=== PATIENT | male | born 1955 | race Caucasian/White ===

== ENCOUNTER 2020-09-26 15:05 | Outpatient (REF) | payer BC, SELFPAY | END 2020-09-26 15:06 | disposition home or self-care (01) | LOC: HO.LNP 15:05 | PROVIDERS: Visit Provider Internal Medicine | DX: Z20.828 Contact with and (suspected) exposure to other viral communicable diseases (principal) | CPT/HCPCS: U0003 ==

== ENCOUNTER 2021-01-09 11:06 | Outpatient (REF) | payer BC, SELFPAY ==
[2021-01-09 13:58] LABS: MANUAL DIFF FLAG NO
[2021-01-09 14:04] LABS: Basophils Absolute Auto 0.1 X10*3/uL (0.0-0.2); Basophils Percent Auto 1.4 % (0-2); Eosinophils Absolute Auto 0.2 X10*3/uL (0.0-0.4); Hematocrit 39.4 % (42-52); Hemoglobin 12.7 g/dl (14.0-18.0); Imm Gran Abs Auto 0.02 X10*3/uL (0.00-0.03); Imm Gran Pct Auto 0.3 % (0.0-0.4); Lymphocytes Absolute Auto 1.8 X10*3/uL (1.2-4.9); Lymphocytes Percent Auto 25.5 % (20-40); Mean Corpuscular HGB Conc 32.2 g/dl (31.0-36.0); Mean Platelet Volume 12.6 fL (9.4-12.4); Monocytes Absolute Auto 0.5 X10*3/uL (0.1-1.2); Neutrophils Absolute Auto 4.4 X10*3/uL (2.0-8.3); Neutrophils Percent Auto 62.8 % (45-73); Platelet Count 273 X10*3/uL (160-400); Red Blood Count 4.53 X10*6/uL (4.60-5.80); Red Cell Distribution Width 14.3 % (11.0-16.0)
[2021-01-09 14:31] LABS: Alanine Aminotransferase 25 U/L (0-40); Albumin Level 4.4 g/dL (3.5-5.0); Alkaline Phosphatase 73 U/L (39-117); Anion Gap 12 (12-20); Aspartate Amino Transferase 22 U/L (5-37); Bilirubin Total 1.3 mg/dL (0.0-1.0); Blood Urea Nitrogen 18 mg/dL (9-16); Calcium 9.4 mg/dL (8.4-10.2); Carbon Dioxide 30 mmol/L (22-29); Chloride 103 mmol/L (96-108); Estimated Glomerular Filt Rate > 60; Glucose Fasting 103 mg/dL (60-99); Potassium 3.7 mmol/L (3.3-5.1); Sodium 141 mmol/L (135-145); Total Protein 7.1 g/dL (6.5-8.0)
== END 2021-01-09 11:07 | disposition home or self-care (01) ==
LOC: HO.10HDL 11:06
PROVIDERS: Visit Provider Internal Medicine
DX: I48.91 Unspecified atrial fibrillation (principal); I10 Essential (primary) hypertension; Z95.2 Presence of prosthetic heart valve
CPT/HCPCS: 36415; 80053; 85025

== ENCOUNTER 2021-07-23 09:16 | Outpatient (REF) | payer BC, SELFPAY ==
[2021-07-23 09:50] LABS: MANUAL DIFF FLAG NO
[2021-07-23 09:54] LABS: Basophils Absolute Auto 0.1 X10*3/uL (0.0-0.2); Basophils Percent Auto 1.4 % (0-2); Eosinophils Absolute Auto 0.5 X10*3/uL (0.0-0.4); Eosinophils Percent Auto 6.9 % (0-4); Hematocrit 40.7 % (42-52); Hemoglobin 13.3 g/dl (14.0-18.0); Imm Gran Abs Auto 0.03 X10*3/uL (0.00-0.03); Imm Gran Pct Auto 0.5 % (0.0-0.4); Lymphocytes Absolute Auto 1.8 X10*3/uL (1.2-4.9); Lymphocytes Percent Auto 26.7 % (20-40); Mean Corpuscular HGB Conc 32.7 g/dl (31.0-36.0); Mean Corpuscular Hemoglobin 28.2 pg (27.0-33.0); Mean Corpuscular Volume 86.2 fL (80-98); Mean Platelet Volume 12.4 fL (9.4-12.4); Monocytes Absolute Auto 0.6 X10*3/uL (0.1-1.2); Monocytes Percent Auto 9.3 % (2-11); Neutrophils Absolute Auto 3.7 X10*3/uL (2.0-8.3); Neutrophils Percent Auto 55.2 % (45-73); Platelet Count 214 X10*3/uL (160-400); Red Blood Count 4.72 X10*6/uL (4.60-5.80); Red Cell Distribution Width 14.5 % (11.0-16.0); White Blood Count 6.7 X10*3/uL (4.8-10.8)
[2021-07-23 10:22] LABS: Alanine Aminotransferase 36 U/L (0-40); Albumin Level 4.3 g/dL (3.5-5.0); Alkaline Phosphatase 64 U/L (39-117); Anion Gap 12 (12-20); Aspartate Amino Transferase 29 U/L (5-37); Bilirubin Total 1.2 mg/dL (0.0-1.0); Blood Urea Nitrogen 16 mg/dL (9-16); Calcium 9.6 mg/dL (8.4-10.2); Carbon Dioxide 29 mmol/L (22-29); Chloride 103 mmol/L (96-108); Estimated Glomerular Filt Rate 58; Glucose Random 104 mg/dL (60-115); Iron 54 mcg/dL (45-160); Percent Iron Saturation 17 % (15-50); Potassium 3.9 mmol/L (3.3-5.1); Sodium 140 mmol/L (135-145); Total Iron Binding Capacity 312 mcg/dL (228-428); Total Protein 6.8 g/dL (6.5-8.0); Unsaturated Iron Binding 258 ug/dL
== END 2021-07-23 09:17 | disposition home or self-care (01) ==
LOC: HO.LAB 09:16
PROVIDERS: PCP Internal Medicine; Visit Provider Internal Medicine
DX: I48.91 Unspecified atrial fibrillation (principal); D64.9 Anemia, unspecified; Z95.2 Presence of prosthetic heart valve
CPT/HCPCS: 36415; 80053; 83540; 85025

== ENCOUNTER 2021-11-23 16:23 | Outpatient (REF) | payer MEDICARE, SELFPAY ==
[2021-11-23 16:48] LABS: COVID-19 Test Negative (Negative); IDNOW Serial# 9DD0AD1C
== END 2021-11-23 16:24 | disposition home or self-care (01) ==
LOC: HO.LNP 16:23
PROVIDERS: Visit Provider Internal Medicine
DX: Z20.822 Contact with and (suspected) exposure to COVID-19 (principal)
CPT/HCPCS: 87635

== ENCOUNTER 2021-12-18 11:10 | Outpatient (REF) | payer MEDICARE, SELFPAY ==
[2021-12-18 13:46] LABS: MANUAL DIFF FLAG NO
[2021-12-18 13:50] LABS: Basophils Absolute Auto 0.1 X10*3/uL (0.0-0.2); Basophils Percent Auto 1.3 % (0-2); Eosinophils Absolute Auto 0.3 X10*3/uL (0.0-0.4); Eosinophils Percent Auto 5.1 % (0-4); Hematocrit 42.7 % (42.0-52.0); Hemoglobin 13.6 g/dl (14.0-18.0); Imm Gran Abs Auto 0.02 X10*3/uL (0.00-0.03); Imm Gran Pct Auto 0.3 % (0.0-0.4); Lymphocytes Absolute Auto 1.9 X10*3/uL (1.2-4.9); Lymphocytes Percent Auto 30.5 % (20-40); Mean Corpuscular HGB Conc 31.9 g/dl (31.0-36.0); Mean Corpuscular Hemoglobin 27.9 pg (27.0-33.0); Mean Corpuscular Volume 87.5 fL (80.0-98.0); Mean Platelet Volume 12.8 fL (9.4-12.4); Monocytes Absolute Auto 0.6 X10*3/uL (0.1-1.2); Monocytes Percent Auto 9.3 % (2-11); Neutrophils Absolute Auto 3.4 x10*3/uL (2.0-8.3); Neutrophils Percent Auto 53.5 % (45-73); Platelet Count 222 X10*3/uL (160-400); Red Blood Count 4.88 X10*6/uL (4.60-5.80); Red Cell Distribution Width 13.9 % (11.0-16.0); White Blood Count 6.3 X10*3/uL (4.8-10.8)
[2021-12-18 13:58] LABS: Appearance Urine CLEAR; Color Urine YELLOW; Glucose Urine UA NEG (NEG); Leukocyte Esterase Urine NEG (NEG); Nitrite Urine NEG (NEG); PH 5.5 (5.0-8.0); Specific Gravity - Urine 1.025 (1.005-1.025); Urine Blood NEG (NEG); Urine Ketones NEG (NEG); Urine Protein NEG (NEG-TRACE)
[2021-12-18 14:00] LABS: Anion Gap 11 (12-20); Blood Urea Nitrogen 16 mg/dL (9-16); Calcium 10.2 mg/dL (8.4-10.2); Carbon Dioxide 31 mmol/L (22-29); Chloride 103 mmol/L (96-108); Estimated Glomerular Filt Rate > 60; Glucose Random 87 mg/dL (60-115); Potassium 4.2 mmol/L (3.3-5.1); Sodium 141 mmol/L (135-145)
[2021-12-18 14:57] LABS: Prostate Specific Antigen Scr 6.14 ng/mL (<0.05-4.0)
== END 2021-12-18 11:11 | disposition home or self-care (01) ==
LOC: HO.HMGCLDS 11:10
PROVIDERS: PCP Internal Medicine; Visit Provider Internal Medicine
DX: R31.9 Hematuria, unspecified (principal); I48.91 Unspecified atrial fibrillation; Z12.5 Encounter for screening for malignant neoplasm of prostate
CPT/HCPCS: 36415; 80048; 81003; 84153; 85025; 86140; 87086

== ENCOUNTER 2021-12-25 10:21 | Outpatient (REF) | payer MEDICARE, SELFPAY ==
[2021-12-25 11:49] LABS: Cholesterol 159 mg/dL; HDL Cholesterol 28 mg/dL; LDL Cholesterol Calculated 103 mg/dl; Triglycerides 144 mg/dL
[2021-12-25 12:13] LABS: PSA,Total (Free>4and<10) 6.49 ng/mL (0.00-4.00)
[2021-12-28 12:51] LABS: Free Prostate Spec Ag 1.1 ng/mL; Percent Free Prostate Spec Ag 16 % (calc) (>25); Prostate Specific Ag Total 6.8 ng/mL (< OR = 4.0)
== END 2021-12-25 10:22 | disposition home or self-care (01) ==
LOC: HO.HMGCLDS 10:21
PROVIDERS: Visit Provider Internal Medicine
DX: Z12.5 Encounter for screening for malignant neoplasm of prostate (principal); R97.20 Elevated prostate specific antigen [PSA]; E78.00 Pure hypercholesterolemia, unspecified; I48.91 Unspecified atrial fibrillation
CPT/HCPCS: 36415; 80061; 84153; 84154

== ENCOUNTER 2021-12-30 07:44 | Day surgery (SDC) | payer MEDICARE, SELFPAY ==
[2021-12-23 15:38] VITALS: BMI 35.9
--- NOTE | 2021-12-29 14:04 | P.CONAN_ITS ---
Documented by User: Charmaine Goodson NP 12/29/21 14:13 HPI - Anesthesia Eval Consult details Narrative: 66yo M for Upper Endoscopy with Balloon Dilitation,colonoscopy with antibiotics Coumadin for s/p AVR PMFSH Past Medical History Medical History (Updated 12/30/21 @ 08:28 by Batool Henriquez, RN) Arrhythmia History of atrial fibrillation History of melanoma HTN (hypertension) Hx of valvular heart disease Hyperlipidemia On anticoagulant therapy Surgical History Surgical History (Updated 12/23/21 @ 15:12 by Bere Porter RN) History of back surgery History of mechanical aortic valve replacement History of melanoma excision History of nasal surgery Hx of colonoscopy Social History Social History Are you a primary intensive care unit registered nurse to a significant other at home: No Do you presently have visiting nurse or other home services: No Patient Tobacco Use Status: Never used Tobacco Use of substances other than those prescribed or required for medical reasons: No Have you been hit, kicked, punched, or otherwise hurt by someone within the past year? If so, by whom?: No Are you DNR?: No Advance Directives: No Advance Directives Information Provided: No Advance Directives on File: No Recently lost weight without trying: No Eating poorly because of decreased appetite: No Nutrition Risks: No Nutritional Risk Meds Allergies Allergy/AdvReac Type Severity Reaction Status Date / Time No Known Allergies Allergy Unverified 12/23/21 15:12 Home Medications Medication Instructions Recorded Confirmed Last Taken Type amlodipine 10 mg tablet 10 mg PO DAILY 12/23/21 12/23/21 12/30/21 History aspirin 81 mg tablet,delayed 81 mg PO DAILY 12/23/21 12/23/21 12/24/21 History release atenolol 50 mg tablet 50 mg PO BID 12/23/21 12/23/21 12/30/21 History atorvastatin 10 mg tablet 10 mg PO DAILY 12/23/21 12/23/21 Unknown History doxazosin 2 mg tablet 2 mg PO DAILY 12/23/21 12/23/21 Unknown History hydrochlorothiazide 25 mg tablet 25 mg PO DAILY 12/23/21 12/23/21 Unknown History lisinopril 40 mg tablet 40 mg PO DAILY 12/23/21 12/23/21 Unknown History warfarin 2.5 mg tablet 2.5 mg PO DAILY 12/23/21 12/23/21 12/24/21 History enoxaparin 120 mg/0.8 mL mg SUBCUT 12/30/21 12/30/21 12/29/21 07:30 History subcutaneous syringe Exam Exam Date and Time: December 29, 2021 1404 Height,Weight and Vital Signs: Height 5 ft 10 in Weight 113.398 kg Pertinent Lab Results Pertinent Lab Results: Laboratory Tests 12/18/21 12/18/21 11:18 11:18 WBC 6.3 Hgb 13.6 L Hct 42.7 Plt Count 222 Sodium 141 Potassium 4.2 Chloride 103 Carbon Dioxide 31 H BUN 16 Creatinine 1.17 Narrative Narrative: See paper chart for cardiac information. Assessment and Plan Assessment Anesthesia Assessment: Chart Reviewed Documented by User: Randy Salcido MD 12/31/21 21:49 [facility] Past Medical History Medical History (Updated 12/30/21 @ 08:28 by Batool Henriquez RN) Arrhythmia History of atrial fibrillation History of melanoma HTN (hypertension) Hx of valvular heart disease Hyperlipidemia On anticoagulant therapy Family History Family history of problems with anesthesia: No Surgical History Surgical History (Updated 12/23/21 @ 15:12 by Bere Porter RN) History of back surgery History of mechanical aortic valve replacement History of melanoma excision History of nasal surgery Hx of colonoscopy History of Problems with Anesthesia: No Social History Social History Are you a primary intensive care unit registered nurse to a significant other at home: No Do you presently have visiting nurse or other home services: No Patient Tobacco Use Status: Never used Tobacco Use of substances other than those prescribed or required for medical reasons: No Have you been hit, kicked, punched, or otherwise hurt by someone within the past year? If so, by whom?: No Are you DNR?: No Advance Directives: No Advance Directives Information Provided: No Advance Directives on File: No Recently lost weight without trying: No Eating poorly because of decreased appetite: No Nutrition Risks: No Nutritional Risk Meds Allergies Allergy/AdvReac Type Severity Reaction Status Date / Time No Known Allergies Allergy Unverified 12/23/21 15:12 Home Medications Medication Instructions Recorded Confirmed Last Taken Type amlodipine 10 mg tablet 10 mg PO DAILY 12/23/21 12/23/21 12/30/21 History aspirin 81 mg tablet,delayed 81 mg PO DAILY 12/23/21 12/23/21 12/24/21 History release atenolol 50 mg tablet 50 mg PO BID 12/23/21 12/23/21 12/30/21 History atorvastatin 10 mg tablet 10 mg PO DAILY 12/23/21 12/23/21 Unknown History doxazosin 2 mg tablet 2 mg PO DAILY 12/23/21 12/23/21 Unknown History hydrochlorothiazide 25 mg tablet 25 mg PO DAILY 12/23/21 12/23/21 Unknown History lisinopril 40 mg tablet 40 mg PO DAILY 12/23/21 12/23/21 Unknown History warfarin 2.5 mg tablet 2.5 mg PO DAILY 12/23/21 12/23/21 12/24/21 History enoxaparin 120 mg/0.8 mL mg SUBCUT 12/30/21 12/30/21 12/29/21 07:30 History subcutaneous syringe Exam Airway Mallampati Class: III TM Dist: >3cm Neck ROM: Full Loose/Missing/Broken Teeth: Yes (Caps ) Heart: irregular Lungs: bl breath sounds Assessment and Plan Assessment Anesthesia Assessment: Anesthesia Plan Discussed Final Anesthetic Review Family History of Problems with Anesthesia: No History of Problems with Anesthesia: No NPO: Yes ASA Class: III Final Preanesthetic Review: Meds/Allgs Chart Reviewed, Consent Obtained/Reviewed and Anes Risks/Benef Reviewed Patient Risk: High Procedure Risk: Intermediate Anesthetic Plan Anesthetic Plan: MAC: Disposition: Standard PACU
[2021-12-30 07:50] VITALS: BP 156/78; PULSE 67; RESP 18; TEMP 36.6; O2SAT 97
[2021-12-30] MEDS: Ampicillin Sodium 2 GM in 0.9 % Sodium Chloride 100 ML IV (08:05)
[2021-12-30] MEDS: Lactated Ringers 1,000 ML 100 ML IVCONT (08:20)
[2021-12-30] MEDS: Gentamicin Sulfate/NaCl 80 MG/100 ML PIGGYBACK 100 MG IV (08:25)
[2021-12-30 08:26] LABS: INTERNATIONAL NORM RATIO 1.2 (0.9-1.1); Prothrombin Time 14.1 SEC (9.9-13.0)
[2021-12-30 11:15] VITALS: BP 96/60; PULSE 65; RESP 17; TEMP 37.1; O2SAT 96
--- NOTE | 2021-12-30 11:16 | P.BOP_ITS ---
Brief Operative Note Date of Service: 12/30/21 Pre-op diagnosis: Dysphagia, Screening Post-op diagnosis: other (Hiatal hernia, Polyps) Procedure: EGD, Colonoscopy to the cecum and TI with cold bx/removal of polyps x 3 and hot snare polypectomy of cecal polyp, and clipping x 4 Surgeon: Chava Mera Anesthesia: MAC Was an Nutrition Coordinator used for this Procedure?: No Estimated blood loss (mL): 3.0 Pathology: other (A. Transverse colon polyp B. Asc. colon polyp C. Cecal polyp D. Polyp at 30cm) Condition: stable Disposition: PACU
[2021-12-30 11:27] VITALS: BP 105/78; PULSE 63; RESP 18; TEMP 36.7; O2SAT 95
--- NOTE | 2021-12-30 12:12 | PC.NURSE ---
DR. ENCARNACION STATED THAT HE WANTS THE PATIENT TO TAKE BOTH HIS LOVENOX AND COUMADIN TODAY. PT INSTRUCTED TO CALL [facility] FOR HIS COUMADIN CLINIC.
--- NOTE | 2021-12-30 14:40 | PC.NURSE ---
THIS RN JUST SPOKE WITH PATIENT LISSETTE VICKERS. MR. VICKERS STATES THAT THE AMOXICILLIN WAS FAXED TO HIS PHARMACY AND THAT HIS IS PICKING UP THE MEDICATION NOW. MR. VICKERS ALSO STATES THAT DR. ENCARNACION CALLED HIM APPROXIMATELY 1/2 HOUR AGO AND CLARIFIED HIS MEDICATIONS, INCLUDING THE COUMADIN AND LOVENOX.
--- NOTE | 2021-12-31 08:37 | OP_ITS ---
SURGEON: Chava Mera MD INDICATIONS: The patient presents for evaluation of colorectal cancer screening, personal history of tubular adenoma of the colon and intermittent dysphagia. Full consent obtained from him for both procedures, including risks of bleeding and perforation. PREOPERATIVE DIAGNOSIS: POSTOPERATIVE DIAGNOSIS: PROCEDURE PERFORMED: Esophagogastroduodenoscopy and colonoscopy to the cecum and terminal ileum with biopsy and removal of polyps, and hot snare polypectomy, and placement of 4 resolution clips in total with 1 placed on each of the polypectomy sites. ESTIMATED BLOOD LOSS: COMPLICATIONS: ANESTHESIA: medication used, monitored anesthesia care. ASSISTANTS: SPECIMENS: DESCRIPTION OF PROCEDURE: The patient was placed in the left lateral decubitus position. The Olympus video gastroscope was passed in the posterior oropharynx and upper esophagus under direct vision. The scope was passed slowly into the distal esophagus. The gastroesophageal junction appeared normal at 39 cm. There was no sign of any esophagitis, Johnston esophagus, esophageal stricture, ulceration, nor mass. The scope easily entered the stomach. There was a small hiatal hernia. The scope was advanced to the pylorus, and the duodenum was cannulated to the descending portion. The duodenum including the bulb appeared normal without mass or ulceration. Scope was withdrawn back in the stomach. The gastric antrum had some minimal areas of erythema, but no erosions or ulceration. There was good peristalsis. The scope was retroflexed visualizing the proximal stomach carefully, which appeared normal, without any sign of mass or ulceration. The scope was straightened and withdrawn back to the esophagus. The gastroesophageal junction was patent and without any abnormality. Therefore, balloon dilation was not performed. The remaining of the esophagus appeared normal. There were no proximal esophageal rings nor webs. The scope was withdrawn from the patient. He was turned around for the colonoscopy. The digital rectal exam revealed no abnormalities. The Olympus video pediatric colonoscope was entered into the rectum and advanced to the cecum. Advancement to the cecum was quite difficult. Initial attempts with abdominal pressure were unsuccessful to reach the cecum, and he was turned on his back. This also did not help and he was then turned back on his left side. At that point, I was then able to reach the cecum with the assistance of abdominal pressure. In the cecum, I did identify the cecal pouch with appendiceal orifice and a normal-appearing ileocecal valve. The terminal ileum was cannulated and appeared normal. The scope was withdrawn back in the colon. In the cecum was an approximately 8 to 10 mm flat but slightly raised, grossly adenomatous polyp, which was removed by hot snare polypectomy and recovered by suction. The polypectomy site appeared clean, without any sign of residual polyp nor bleeding. A single clip was applied to the polypectomy site with good deployment and hemostasis. The remainder of the cecum appeared normal. The scope was then slowly withdrawn assessing all mucosal surfaces carefully. Preparation was excellent. In the transverse colon, ascending colon, and at 30 cm were flat approximately 3 to 5 mm polyps, which were all biopsied and completely removed with the cold biopsy forceps. I placed a single resolution clip on each of the polypectomy sites with good deployment and good hemostasis. I did not visualize any other polyps, colitis, or angiodysplasia. There was a mild amount of sigmoid diverticulosis. In the rectum, the scope was retroflexed visualizing some small internal hemorrhoids, but no other pathology. The rectal mucosa appeared normal. The scope was straightened and withdrawn from the patient. He tolerated the procedure well and was returned to the recovery area in stable condition. IMPRESSION: 1. Small hiatal hernia, minimal gastritis, otherwise normal upper endoscopy without any sign of esophageal disease. 2. Small colon polyps, status post hot snare polypectomy, and biopsy removal. 3. Diverticulosis. 4. Internal hemorrhoids. PLAN: The results of the pathology will be checked. I would recommend a repeat colonoscopy in 5 years. At this point, he is not having any upper GI symptoms, and has not had any dysphagia in quite some time. I therefore advised him to observe things in that regard and let me know if his problem of dysphagia recurs. In regard to the patient's anticoagulation, I did advise him to resume his Coumadin today at the normal dosage and to resume his Lovenox tomorrow morning. He was advised to resume his aspirin in 72 hours. He did receive preprocedure antibiotics for prophylaxis in regard to his prosthetic aortic valve and was given a prescription for amoxicillin to take later today as well. If things remain stable, he would otherwise see me on a p.r.n. basis, but again was advised to call if he has any trouble swallowing. This has been discussed with the patient and his . MD LYLE Tristan/MAYELA / [id number] MTDD
== END 2021-12-30 12:15 | disposition home or self-care (01) ==
PROVIDERS: Nurse Practitioner; PCP Internal Medicine; Visit Provider Internal Medicine
PROC: (CPT 45385; principal; 2021-12-30 09:10)
DX: Z12.11 Encounter for screening for malignant neoplasm of colon (principal); Z86.010 Personal history of colon polyps; D12.0 Benign neoplasm of cecum; D12.2 Benign neoplasm of ascending colon; D12.3 Benign neoplasm of transverse colon; D12.5 Benign neoplasm of sigmoid colon; K57.30 Diverticulosis of large intestine without perforation or abscess without bleeding; K64.8 Other hemorrhoids; R13.19 Other dysphagia; K29.60 Other gastritis without bleeding; K44.9 Diaphragmatic hernia without obstruction or gangrene; I10 Essential (primary) hypertension; E78.5 Hyperlipidemia, unspecified; I48.91 Unspecified atrial fibrillation; Z95.2 Presence of prosthetic heart valve; Z79.01 Long term (current) use of anticoagulants; Z79.82 Long term (current) use of aspirin; Z79.899 Other long term (current) drug therapy; Z85.820 Personal history of malignant melanoma of skin
CPT/HCPCS: 45385; 45380; 43235; 36415; 85610; 88305; J0290; J1580

== ENCOUNTER 2022-11-10 14:03 | Outpatient (REF) | payer MEDICARE, SELFPAY ==
[2022-11-10 17:16] LABS: Alanine Aminotransferase 27 U/L (0-40); Albumin Level 4.4 g/dL (3.5-5.0); Alkaline Phosphatase 62 U/L (39-117); Anion Gap 12 (12-20); Aspartate Amino Transferase 22 U/L (5-37); Bilirubin Total 1.6 mg/dL (0.0-1.0); Blood Urea Nitrogen 15 mg/dL (9-16); Calcium 9.8 mg/dL (8.4-10.2); Carbon Dioxide 31 mmol/L (22-29); Chloride 100 mmol/L (96-108); Cholesterol 151 mg/dL; Estimated Glomerular Filt Rate > 60; Glucose Fasting 94 mg/dL (60-99); HDL Cholesterol 31 mg/dL; LDL Cholesterol Calculated 85 mg/dl; Potassium 4.2 mmol/L (3.3-5.1); Sodium 139 mmol/L (135-145); Triglycerides 178 mg/dL
== END 2022-11-10 14:04 | disposition home or self-care (01) ==
LOC: HO.HMGCLDS 14:03
PROVIDERS: PCP Internal Medicine; Visit Provider Internal Medicine
DX: I10 Essential (primary) hypertension (principal); E78.00 Pure hypercholesterolemia, unspecified; Z95.2 Presence of prosthetic heart valve
CPT/HCPCS: 36415; 80053; 80061

== ENCOUNTER 2023-10-04 08:42 | Outpatient (REF) | payer MEDICARE, SELFPAY ==
[2023-10-04 11:16] LABS: MANUAL DIFF FLAG NO
[2023-10-04 11:24] LABS: Basophils Absolute Auto 0.1 X10*3/uL (0.0-0.2); Basophils Percent Auto 2.1 % (0-2); Eosinophils Absolute Auto 0.2 X10*3/uL (0.0-0.4); Eosinophils Percent Auto 4.7 % (0-4); Hematocrit 39.3 % (42.0-52.0); Imm Gran Abs Auto 0.02 X10*3/uL (0.00-0.03); Imm Gran Pct Auto 0.4 % (0.0-0.4); Lymphocytes Absolute Auto 0.7 X10*3/uL (1.2-4.9); Lymphocytes Percent Auto 14.2 % (20-40); Mean Corpuscular HGB Conc 33.1 g/dl (31.0-36.0); Mean Corpuscular Hemoglobin 28.8 pg (27.0-33.0); Mean Corpuscular Volume 87.1 fL (80.0-98.0); Mean Platelet Volume 12.4 fL (9.4-12.4); Monocytes Absolute Auto 0.4 X10*3/uL (0.1-1.2); Monocytes Percent Auto 8.6 % (2-11); Neutrophils Absolute Auto 3.4 x10*3/uL (2.0-8.3); Platelet Count 197 X10*3/uL (160-400); Red Blood Count 4.51 X10*6/uL (4.60-5.80); White Blood Count 4.9 X10*3/uL (4.8-10.8)
[2023-10-04 11:56] LABS: Alanine Aminotransferase 38 U/L (0-40); Albumin Level 4.2 g/dL (3.5-5.0); Alkaline Phosphatase 55 U/L (39-117); Anion Gap 11 (12-20); Aspartate Amino Transferase 29 U/L (5-37); Bilirubin Total 1.5 mg/dL (0.0-1.0); Blood Urea Nitrogen 14 mg/dL (9-16); Calcium 9.8 mg/dL (8.4-10.2); Carbon Dioxide 32 mmol/L (22-29); Chloride 100 mmol/L (96-108); Cholesterol 155 mg/dL (<200); Estimated Glomerular Filt Rate > 60; Glucose Fasting 106 mg/dL (60-99); HDL Cholesterol 35 mg/dL (>40); Iron 85 mcg/dL (45-160); LDL Cholesterol Calculated 81 mg/dL (<100); Percent Iron Saturation 33 % (15-50); Potassium 3.5 mmol/L (3.3-5.1); Sodium 139 mmol/L (135-145); Total Iron Binding Capacity 259 mcg/dL (228-428); Total Protein 7.2 g/dL (6.5-8.0); Triglycerides 195 mg/dL (<150); Unsaturated Iron Binding 174 ug/dL; Uric Acid 6.5 mg/dL (3.4-7.0)
== END 2023-10-04 08:43 | disposition home or self-care (01) ==
LOC: HO.HMGCLDS 08:42
PROVIDERS: PCP Internal Medicine; Visit Provider Internal Medicine
DX: I48.91 Unspecified atrial fibrillation (principal); E78.00 Pure hypercholesterolemia, unspecified; M10.9 Gout, unspecified; I12.9 Hypertensive chronic kidney disease with stage 1 through stage 4 chronic kidney disease, or unspecified chronic kidney disease; N18.9 Chronic kidney disease, unspecified; Z95.2 Presence of prosthetic heart valve
CPT/HCPCS: 36415; 80053; 80061; 83540; 84550; 85025

== ENCOUNTER 2024-05-22 14:05 | Emergency (ER) | payer MEDICARE, SELFPAY ==
[2024-05-22 15:07] VITALS: BP 140/87; PULSE 73; RESP 18; TEMP 36.4; O2SAT 97; BMI 38.7
--- NOTE | 2024-05-22 15:09 | ED_ITS ---
HPI - General Adult General Stated complaint: rectal bleeding , sent from [employer] Home Medications ?Medication ?Instructions ?Recorded ?Confirmed amlodipine 10 mg tablet 10 mg PO DAILY 12/23/21 12/23/21 aspirin 81 mg tablet,delayed 81 mg PO DAILY 12/23/21 12/23/21 release atenolol 50 mg tablet 50 mg PO BID 12/23/21 12/23/21 atorvastatin 10 mg tablet 10 mg PO DAILY 12/23/21 12/23/21 doxazosin 2 mg tablet 2 mg PO DAILY 12/23/21 12/23/21 hydrochlorothiazide 25 mg tablet 25 mg PO DAILY 12/23/21 12/23/21 lisinopril 40 mg tablet 40 mg PO DAILY 12/23/21 12/23/21 warfarin 2.5 mg tablet 2.5 mg PO DAILY 12/23/21 12/23/21 enoxaparin 120 mg/0.8 mL mg subcut 12/30/21 12/30/21 subcutaneous syringe Allergies Allergy/AdvReac Type Severity Reaction Status Date / Time No Known Allergies Allergy Unverified 12/23/21 15:12 [facility] Past Medical History Medical History (Updated 12/30/21 @ 08:28 by Batool Henriquez, RN) History of atrial fibrillation Arrhythmia On anticoagulant therapy Hx of valvular heart disease History of melanoma Hyperlipidemia HTN (hypertension) Surgical History (Updated 12/23/21 @ 15:12 by Bere Porter, [employer]) History of melanoma excision History of mechanical aortic valve replacement History of nasal surgery History of back surgery Hx of colonoscopy Social History Social History Are you a primary childcare director to a significant other at home: No Do you presently have visiting nurse or other home services: No Patient Tobacco Use Status: Never used Tobacco Course Course Course Narrative: RME, this is a rapid medical exam performed by Nuno Desai please refer to primary provider for complete H&P- 68-year-old male with past medical history significant for mechanical valve replacement on Coumadin presents for evaluation of rectal bleeding. He reports it is bright red blood per rectum. He denies any abdominal pain or rectal pain. Plan for labs and further evaluation when space is available Discharge Plan Discharge Prescriptions: No Action atorvastatin 10 mg Tablet 10 mg PO DAILY warfarin 2.5 mg Tablet 2.5 mg PO DAILY aspirin 81 mg Tablet,Delayed Release (Dr/Ec) 81 mg PO DAILY amlodipine 10 mg Tablet 10 mg PO DAILY hydrochlorothiazide 25 mg Tablet 25 mg PO DAILY lisinopril 40 mg Tablet 40 mg PO DAILY atenolol 50 mg Tablet 50 mg PO BID doxazosin 2 mg Tablet 2 mg PO DAILY enoxaparin 120 mg/0.8 mL syringe subcut Print Language: Nauruan
[2024-05-22 16:17] LABS: MANUAL DIFF FLAG NO
[2024-05-22 16:19] LABS: Basophils Absolute Auto 0.1 X10*3/uL (0.0-0.2); Basophils Percent Auto 1.5 % (0-2); Eosinophils Absolute Auto 0.3 X10*3/uL (0.0-0.4); Eosinophils Percent Auto 5.4 % (0-4); Hematocrit 35.3 % (42.0-52.0); Hemoglobin 11.7 g/dl (14.0-18.0); Imm Gran Abs Auto 0.02 X10*3/uL (0.00-0.03); Imm Gran Pct Auto 0.4 % (0.0-0.4); Lymphocytes Absolute Auto 1.1 X10*3/uL (1.2-4.9); Lymphocytes Percent Auto 20.7 % (20-40); Mean Corpuscular HGB Conc 33.1 g/dl (31.0-36.0); Mean Corpuscular Hemoglobin 29.3 pg (27.0-33.0); Mean Corpuscular Volume 88.5 fL (80.0-98.0); Mean Platelet Volume 11.2 fL (9.4-12.4); Monocytes Absolute Auto 0.5 X10*3/uL (0.1-1.2); Monocytes Percent Auto 9.7 % (2-11); Neutrophils Absolute Auto 3.2 x10*3/uL (2.0-8.3); Neutrophils Percent Auto 62.3 % (45-73); Platelet Count 209 X10*3/uL (160-400); Red Blood Count 3.99 X10*6/uL (4.60-5.80); Red Cell Distribution Width 14.7 % (11.0-16.0); White Blood Count 5.2 X10*3/uL (4.8-10.8)
[2024-05-22 16:29] LABS: INTERNATIONAL NORM RATIO 3.8 (0.9-1.1); Prothrombin Time 45.9 SEC (11.1-13.3)
[2024-05-22 16:35] LABS: Alanine Aminotransferase 27 U/L (0-40); Albumin Level 4.1 g/dL (3.5-5.0); Alkaline Phosphatase 55 U/L (39-117); Anion Gap 15 (12-20); Aspartate Amino Transferase 25 U/L (5-37); Bilirubin Total 0.8 mg/dL (0.0-1.0); Blood Urea Nitrogen 20 mg/dL (9-16); Calcium 9.9 mg/dL (8.4-10.2); Carbon Dioxide 28 mmol/L (22-29); Chloride 105 mmol/L (96-108); Estimated Glomerular Filt Rate > 60; Glucose Random 85 mg/dL (60-115); Lipase 20 U/L (8-78); Sodium 144 mmol/L (135-145); Total Protein 6.9 g/dL (6.5-8.0)
== END 2024-05-22 18:46 | disposition left against medical advice (07) ==
PROVIDERS: Physician Assistant; Emergency Provider Emergency Medicine; PCP Internal Medicine
DX: K62.5 Hemorrhage of anus and rectum (principal); Z79.01 Long term (current) use of anticoagulants; Z95.2 Presence of prosthetic heart valve
CPT/HCPCS: 36415; 80053; 83690; 85025; 85610; 99281

== ENCOUNTER 2024-05-29 09:33 | Outpatient (REF) | payer MEDICARE, SELFPAY ==
[2024-05-29 09:58] LABS: MANUAL DIFF FLAG NO
[2024-05-29 10:35] LABS: Basophils Absolute Auto 0.1 X10*3/uL (0.0-0.2); Basophils Percent Auto 1.2 % (0-2); Eosinophils Absolute Auto 0.3 X10*3/uL (0.0-0.4); Eosinophils Percent Auto 6.2 % (0-4); Hematocrit 31.2 % (42.0-52.0); Imm Gran Abs Auto 0.03 X10*3/uL (0.00-0.03); Imm Gran Pct Auto 0.6 % (0.0-0.4); Lymphocytes Absolute Auto 0.9 X10*3/uL (1.2-4.9); Lymphocytes Percent Auto 18.2 % (20-40); Mean Corpuscular HGB Conc 32.1 g/dl (31.0-36.0); Mean Corpuscular Hemoglobin 29.3 pg (27.0-33.0); Mean Corpuscular Volume 91.5 fL (80.0-98.0); Mean Platelet Volume 11.6 fL (9.4-12.4); Monocytes Absolute Auto 0.4 X10*3/uL (0.1-1.2); Monocytes Percent Auto 8.5 % (2-11); Neutrophils Absolute Auto 3.2 x10*3/uL (2.0-8.3); Neutrophils Percent Auto 65.3 % (45-73); Platelet Count 223 X10*3/uL (160-400); Red Blood Count 3.41 X10*6/uL (4.60-5.80); Red Cell Distribution Width 15.1 % (11.0-16.0); White Blood Count 4.8 X10*3/uL (4.8-10.8)
[2024-05-29 11:04] LABS: Iron 52 mcg/dL (45-160); Percent Iron Saturation 19 % (15-50); Total Iron Binding Capacity 273 mcg/dL (228-428); Unsaturated Iron Binding 221 ug/dL
== END 2024-05-29 09:34 | disposition home or self-care (01) ==
LOC: HO.LAB 09:33
PROVIDERS: PCP Internal Medicine; Visit Provider Internal Medicine
DX: K62.5 Hemorrhage of anus and rectum (principal)
CPT/HCPCS: 36415; 83540; 85025

== ENCOUNTER 2024-05-30 14:06 | Emergency (ER) | payer MEDICARE, SELFPAY ==
--- NOTE | ~2024-05-30 | CT_ITS ---
EXAMINATION: CT ABDOMEN AND PELVIS WITH CONTRAST CLINICAL INFORMATION: Abdominal pain COMPARISON: Ultrasound abdomen 03/04/2016 TECHNIQUE: Multidetector volumetric images were obtained from the superior aspect of the liver through the pubic symphysis following administration 85 mL of Omnipaque 350 intravenous contrast. Sagittal and coronal reformatted images were obtained on the technologist's workstation. Oral contrast: No This CT examination was performed using dose optimization techniques as appropriate, variously including the following: *Automated exposure control *Adjustment of mA and/or kV according to patient size (this includes techniques or standardized protocols for targeted exams where dose is matched to indication/reason for exam; i.e. extremities or head) *Use of iterative reconstruction technique DLP: 965 mGy-cm FINDINGS: LUNG BASES: Heart is mildly enlarged. An aortic valve prosthesis is present. Status post median sternotomy. No infiltrates, effusions or lung masses are seen. There is mild bronchial thickening. LIVER, GALLBLADDER, AND BILIARY TREE: The liver is normal in size, shape, and attenuation. No focal hepatic lesion or biliary ductal dilatation is present. The gallbladder is unremarkable with no evidence of radiopaque gallstones, gallbladder wall thickening, or obvious pericholecystic inflammatory changes. PANCREAS: Unremarkable. SPLEEN: Spleen is mildly enlarged at 12.5 cm. ADRENAL GLANDS: Unremarkable. KIDNEYS AND URETERS: The kidneys are normal in size, shape, and attenuation. No hydronephrosis, hydroureter, or calculi seen. No perinephric stranding. A benign right lower pole 2.5 cm Bosniak class I renal cyst is noted which requires no additional imaging or follow up. No solid renal masses are seen. BLADDER: Unremarkable. GASTROINTESTINAL TRACT: The small and large bowel are unremarkable. The appendix is unremarkable. ABDOMINAL WALL: Small bilateral inguinal hernias are seen containing only fat. LYMPH NODES: Normal. VASCULAR: Unremarkable. PELVIC VISCERA: Usual markers are present in the prostate. Seminal vesicles appear normal. OSSEOUS STRUCTURES: Mild degenerative changes most marked at L3-L4. CT/CT abdomen pelvis w IV con IMPRESSION: 1. A cause for the patient's abdominal pain has not been found. 2. Incidental note made of mild cardiomegaly, mild splenomegaly, small bilateral inguinal hernias containing only fat and mild degenerative changes in the spine. Fleischner guidelines were followed.
[2024-05-30 14:28] VITALS: BP 140/77; PULSE 72; RESP 16; TEMP 36; O2SAT 99; BMI 35.9
--- NOTE | 2024-05-30 14:28 | ED_ITS ---
HPI - General Adult General Chief complaint: Nausea/Vomiting/Diarrhea Stated complaint: Dr francois sent for ct scan Time Seen by Provider: 05/30/24 21:50 Source: patient, RN notes reviewed and old records reviewed Mode of arrival: ambulatory Limitations: no limitations History of Present Illness ED Provider: Giselle RDZ narrative: 68-year-old male with past medical history significant for hypertension, prosthetic valve on warfarin presents for evaluation of rectal bleeding Patient reports bright red blood per rectum for the last 2 weeks. He has seen his primary doctor and referred to the ED today The patient denies any lightheadedness, dizziness He states a few years back he had a polyp removed during colonoscopy and had a significant GI hemorrhage requiring blood transfusion He reports that he does not feel I sick as he did on that occasion Patient denies any pain whatsoever including abdominal pain or rectal pain Related Data Home Medications ?Medication ?Instructions ?Recorded ?Confirmed amlodipine 10 mg tablet 10 mg PO DAILY 12/23/21 12/23/21 aspirin 81 mg tablet,delayed 81 mg PO DAILY 12/23/21 12/23/21 release atenolol 50 mg tablet 50 mg PO BID 12/23/21 12/23/21 atorvastatin 10 mg tablet 10 mg PO DAILY 12/23/21 12/23/21 doxazosin 2 mg tablet 2 mg PO DAILY 12/23/21 12/23/21 hydrochlorothiazide 25 mg tablet 25 mg PO DAILY 12/23/21 12/23/21 lisinopril 40 mg tablet 40 mg PO DAILY 12/23/21 12/23/21 warfarin 2.5 mg tablet 2.5 mg PO DAILY 12/23/21 12/23/21 enoxaparin 120 mg/0.8 mL mg subcut 12/30/21 12/30/21 subcutaneous syringe Previous Rx's ?Medication ?Instructions ?Recorded hydrocortisone acetate 25 mg 25 mg AK BID 1 week #24 ea 05/31/24 rectal suppository (Anucort-HC) Allergies Allergy/AdvReac Type Severity Reaction Status Date / Time No Known Allergies Allergy Verified 05/30/24 14:31 Review of Systems 2 Constitutional: Constitutional: Denies body ache(s), Denies chills, Denies fever(s) and Denies headache(s) ENT: Denies vertigo, Denies dizziness and Denies headache(s) Cardiovascular: Cardiovascular: Denies chest pain and Denies dyspnea Respiratory: Respiratory: Denies cough and Denies dyspnea Gastrointestinal: Gastrointestinal: Denies abdominal pain, Reports hematochezia, Denies constipation, Denies GI cramping, Reports loose stools, Denies nausea and Denies vomiting Musculoskeletal: Musculoskeletal: Denies back pain Integumentary/Breasts: Skin/Breast: Denies rash Neurologic: Denies vertigo, Denies dizziness and Denies headache(s) [facility] Past Medical History Medical History (Updated 05/31/24 @ 00:07 by Bernard Desai) History of atrial fibrillation Arrhythmia On anticoagulant therapy Hx of valvular heart disease History of melanoma Hyperlipidemia HTN (hypertension) Surgical History (Updated 12/23/21 @ 15:12 by Bere Porter RN) History of melanoma excision History of mechanical aortic valve replacement History of nasal surgery History of back surgery Hx of colonoscopy Social History Social History Are you a primary managed care provider to a significant other at home: No Do you presently have visiting nurse or other home services: No Patient Tobacco Use Status: Never used Tobacco Advance Directives: No Advance Directives Information Provided: No Physical Exam ED Vital Signs: Vital Signs - 24 hr 05/30/24 14:28 05/30/24 18:55 05/30/24 22:08 Temperature 96.8 F 98.5 F Pulse Rate 72 82 63 Respiratory Rate 16 12 20 Blood Pressure 140/77 H 133/70 157/92 H Pulse Oximetry 99 97 Oxygen Delivery Method Room Air Room Air 05/31/24 00:13 Temperature 98.5 F Pulse Rate 70 Respiratory Rate 16 Blood Pressure 157/92 H Pulse Oximetry 98 Oxygen Delivery Method Room Air BMI result Body Mass Index 35.9 Const General: healthy appearing, comfortable, no acute distress, alert and awake Nutritional Appearance: well nourished Orientation/consciousness: patient oriented x3 HENMT Head: Yes normocephalic and Yes atraumatic Throat: Yes posterior oropharynx normal Eyes Eyelids: Yes eyelids normal Conjunctivae: conjunctivae normal Sclerae: sclerae normal Corneas: corneas normal Pupils: Equal, round and reactive pupils present EOM: EOMs intact bilaterally Neck Neck: Yes full ROM Resp Effort & Inspection: normal respiratory effort, able to speak in complete sentences, no audible wheezes and not labored Auscultation: clear to auscultation bilaterally Cardio Rate: regular rate Rhythm: regular rhythm GI Inspection: No distended Palpation (GI): Soft to palpation, not firm, nontender, no guarding and not rigid Auscultation: normoactive bowel sounds Rectal Exam - Male: Yes deferred Skin General skin exam: no rashes or lesions noted Neuro General: patient oriented x3 Cranial nerves: Yes Equal, round and reactive pupils present and Yes Bilaterally intact EOM present Cognition (Neuro): normal cognition Extrem Other: Moving all extremities well without any obvious deformities Course Course Course Narrative: This is an RME: Additional HPI, ROS, PE not included below will be deferred to primary provider. RME assessment and note performed by: Riya Ferguson PA-C This is a [id number]-male, with a hx of mechanical valve replacement on coumadin, who presents to the ER with complaints of rectal bleeding x 2 weeks. Reports that the rectal bleeding occurs with bowel movements. No hx of hemorrhoids. No abdominal pain. Reporting that he has had diarrhea for 2 weeks. No hx of GI issues in the past. No recent travels. Dr. Khan advised to d/c coumadin tuesday and tuesday due to bleeding. Plan: Labs, further ER evaluation needed Medications Administered Discontinued Medications Generic Name Dose Route Start Last Admin Trade Name Freq PRN Reason Stop Dose Admin Iohexol 85 ml 05/30/24 23:01 05/30/24 23:01 Iohexol 350 Mg/Ml 100 Ml Infus..Btl IV 05/30/24 23:02 85 ml ONCE ONE Administration Medical Decision Making Medical Decision Making MDM Narrative: 68-year-old male presents for evaluation of bright red blood per rectum. He is on Coumadin. Plan to check an INR. Patient does have a history of anemia, his hemoglobin is 1-2 points below his baseline but is 9.8, hematocrit 30.2. His blood pressure is 157/92 and he is not tachycardic with a heart rate of 70. There was no indication for transfusion at this time. He had symptoms for CT scan by his primary doctor. I have a low suspicion for infectious process as the patient has no abdominal pain or rectal pain. He has no leukocytosis. He has not had any large bloody bowel movements to suggest active GI hemorrhage. However given that he was sent in for a CT scan of the abdomen pelvis I ordered this. The CT scan did not show any acute pathology. The patient's bright red blood per rectum is likely related to internal hemorrhoids. Plan to treat with Anusol suppository. His INR is subtherapeutic at 1.5 Differential Diagnosis Differential Diagnoses: The differential diagnosis associated with the presentation includes GI bleed Internal hemorrhoids External hemorrhoids Colonic mass Coagulopathy Admission/Observation Consideration of admission/observation: Escalation of care including admission/observation considered Consider admission due to reported GI bleed on anticoagulation. The patient is subtherapeutic, vital signs are stable and he only has a mild anemia, he does not require admission Lab Data MDM Lab Attestation statement: I reviewed the patient's lab results. Please see medical decision making above 05/30/24 16:33 05/30/24 16:33 Labs: Lab Results 05/30/24 05/30/24 Range/Units 16:33 22:34 WBC 5.6 (4.8-10.8) X10*3/uL RBC 3.34 L (4.60-5.80) X10*6/uL Hgb 9.8 L (14.0-18.0) g/dl Hct 30.2 L (42.0-52.0) % MCV 90.4 (80.0-98.0) fL MCH 29.3 (27.0-33.0) pg MCHC 32.5 (31.0-36.0) g/dl RDW 15.2 (11.0-16.0) % Plt Count 223 (160-400) X10*3/uL MPV 10.9 (9.4-12.4) fL Immature Gran % (Auto) 0.5 H (0.0-0.4) % Neut % (Auto) 68.9 (45-73) % Lymph % (Auto) 16.6 L (20-40) % [place] % (Auto) 8.4 (2-11) % Eos % (Auto) 4.3 H (0-4) % Baso % (Auto) 1.3 (0-2) % Lymph # (Auto) 0.9 L (1.2-4.9) X10*3/uL [place] # (Auto) 0.5 (0.1-1.2) X10*3/uL Eos # (Auto) 0.2 (0.0-0.4) X10*3/uL Baso # (Auto) 0.1 (0.0-0.2) X10*3/uL Abs Immat Gran (auto) 0.03 (0.00-0.03) X10*3/uL Absolute Neuts (auto) 3.9 (2.0-8.3) x10*3/uL Absolute Nucleated RBC 0.000 (0.0-0.012) X10*3/uL Nucleated RBC % (auto) 0.0 (0.0-0.2) /100WBC PT 17.9 H D (11.1-13.3) SEC INR 1.5 H D (0.9-1.1) Sodium 143 (135-145) mmol/L Potassium 4.3 (3.3-5.1) mmol/L Chloride 108 (96-108) mmol/L Carbon Dioxide 26 (22-29) mmol/L Anion Gap 13 (12-20) BUN 13 (9-16) mg/dL Creatinine 0.92 (0.5-1.4) mg/dL Estim Creat Clear Calc 98.2 Estimated GFR > 60 Random Glucose 86 (60-115) mg/dL Calcium 9.9 (8.4-10.2) mg/dL Magnesium 2.1 (1.6-2.6) mg/dL Total Bilirubin 0.9 (0.0-1.0) mg/dL Direct Bilirubin 0.3 (0.0-0.5) mg/dL AST 26 (5-37) U/L ALT 28 (0-40) U/L Alkaline Phosphatase 54 (39-117) U/L Total Protein 6.6 (6.5-8.0) g/dL Albumin 4.0 (3.5-5.0) g/dL Lipase 19 (8-78) U/L Radiology Impression Discussion of test interpretation with radiology: I have reviewed the radiologist's reading. Radiologist Impression: CT/CT abdomen pelvis w IV con IMPRESSION: 1. A cause for the patient's abdominal pain has not been found. 2. Incidental note made of mild cardiomegaly, mild splenomegaly, small bilateral inguinal hernias containing only fat and mild degenerative changes in the spine. Discharge Plan Discharge Clinical Impression: Bright red blood per rectum Patient Disposition: Home, Self-Care Instructions: Rectal Bleeding (ED) Additional Instructions: Your workup in the ER today was reassuring. You do have a mild anemia that is slightly below your baseline This is likely due to internal hemorrhoids Use Anusol suppository twice daily for 1 week Call your GI doctor tomorrow to schedule follow-up Prescriptions: New hydrocortisone acetate [Anucort-HC] 25 mg suppository 25 mg AK BID 7 Days Qty: 24 0RF No Action atorvastatin 10 mg Tablet 10 mg PO DAILY warfarin 2.5 mg Tablet 2.5 mg PO DAILY aspirin 81 mg Tablet,Delayed Release (Dr/Ec) 81 mg PO DAILY amlodipine 10 mg Tablet 10 mg PO DAILY hydrochlorothiazide 25 mg Tablet 25 mg PO DAILY lisinopril 40 mg Tablet 40 mg PO DAILY atenolol 50 mg Tablet 50 mg PO BID doxazosin 2 mg Tablet 2 mg PO DAILY enoxaparin 120 mg/0.8 mL syringe subcut Referrals: Chava Mera MD [Physician] - (bright red blood per rectum) Interventions: ED Discharge Assessment Last Done: 05/31/24 00:13 Discharge Date/Time: 05/31/24 00:14 Print Language: Namibian
[2024-05-30 16:37] LABS: MANUAL DIFF FLAG NO
[2024-05-30 16:41] LABS: Basophils Absolute Auto 0.1 X10*3/uL (0.0-0.2); Basophils Percent Auto 1.3 % (0-2); Eosinophils Absolute Auto 0.2 X10*3/uL (0.0-0.4); Eosinophils Percent Auto 4.3 % (0-4); Hematocrit 30.2 % (42.0-52.0); Hemoglobin 9.8 g/dl (14.0-18.0); Imm Gran Abs Auto 0.03 X10*3/uL (0.00-0.03); Imm Gran Pct Auto 0.5 % (0.0-0.4); Lymphocytes Absolute Auto 0.9 X10*3/uL (1.2-4.9); Lymphocytes Percent Auto 16.6 % (20-40); Mean Corpuscular HGB Conc 32.5 g/dl (31.0-36.0); Mean Corpuscular Hemoglobin 29.3 pg (27.0-33.0); Mean Corpuscular Volume 90.4 fL (80.0-98.0); Mean Platelet Volume 10.9 fL (9.4-12.4); Monocytes Absolute Auto 0.5 X10*3/uL (0.1-1.2); Monocytes Percent Auto 8.4 % (2-11); Neutrophils Absolute Auto 3.9 x10*3/uL (2.0-8.3); Neutrophils Percent Auto 68.9 % (45-73); Platelet Count 223 X10*3/uL (160-400); Red Blood Count 3.34 X10*6/uL (4.60-5.80); Red Cell Distribution Width 15.2 % (11.0-16.0); White Blood Count 5.6 X10*3/uL (4.8-10.8)
--- NOTE | 2024-05-30 16:42 | MHC.EDTECH ---
Patient blood drawn and sent to lab .
[2024-05-30 16:53] LABS: Alanine Aminotransferase 28 U/L (0-40); Alkaline Phosphatase 54 U/L (39-117); Anion Gap 13 (12-20); Aspartate Amino Transferase 26 U/L (5-37); Bilirubin Direct 0.3 mg/dL (0.0-0.5); Bilirubin Total 0.9 mg/dL (0.0-1.0); Blood Urea Nitrogen 13 mg/dL (9-16); Calcium 9.9 mg/dL (8.4-10.2); Carbon Dioxide 26 mmol/L (22-29); Chloride 108 mmol/L (96-108); Creatinine Clr Calc Pharmacy 98.2; Estimated Glomerular Filt Rate > 60; Glucose Random 86 mg/dL (60-115); Lipase 19 U/L (8-78); Magnesium 2.1 mg/dL (1.6-2.6); Potassium 4.3 mmol/L (3.3-5.1); Sodium 143 mmol/L (135-145); Total Protein 6.6 g/dL (6.5-8.0)
[2024-05-30 18:55] VITALS: BP 133/70; PULSE 82; RESP 12; TEMP 36.9; O2SAT 97
[2024-05-30 22:08] VITALS: BP 157/92; PULSE 63; RESP 20
[2024-05-30 22:47] LABS: INTERNATIONAL NORM RATIO 1.5 (0.9-1.1); Prothrombin Time 17.9 SEC (11.1-13.3)
[2024-05-30] MEDS: iohexoL 350 MG/ML 100 ML INFUS..BTL 85 ML IV (23:01)
[2024-05-31 00:13] VITALS: BP 157/92; PULSE 70; RESP 16; TEMP 36.9; O2SAT 98
== END 2024-05-31 00:14 | disposition home or self-care (01) ==
PROVIDERS: Physician Assistant; Physician Assistant Medical; Emergency Provider Internal Medicine; PCP Internal Medicine
DX: K62.5 Hemorrhage of anus and rectum (principal); R10.9 Unspecified abdominal pain; I10 Essential (primary) hypertension; I48.91 Unspecified atrial fibrillation; Z79.01 Long term (current) use of anticoagulants; Z79.82 Long term (current) use of aspirin; Z79.899 Other long term (current) drug therapy
CPT/HCPCS: 36415; 74177; 80048; 80076; 83690; 83735; 85025; 85610; 99284; Q9967

== ENCOUNTER 2024-06-28 15:21 | Outpatient (AMB) | payer MEDICARE, SELFPAY ==
--- NOTE | 2024-06-28 15:21 | A.OFFVIS_ITS ---
Vital Signs 06/28/24 15:22 Height 5 ft 10 in Weight 250 lb 0.067 oz BMI 35.9 Intake Visit Reasons: rectal bleeding, hemorrhoids Intake Note: This patient was referred by Dr. Whiting for rectal bleeding and hemorrhoids. Pt c/o; reports no rectal bleeding or pain, reports no changes in bowel habits. Maxillofacial Prosthodontist Required: No Accompanied by: Self / Same As Patient Allergies No Known Allergies Allergy (Verified 06/28/24 15:22) Medication List - Last Reconciled 06/28/24 by Fer Meier MD amlodipine 10 mg PO DAILY aspirin 81 mg PO DAILY atenolol 50 mg PO BID atorvastatin 10 mg PO DAILY doxazosin 2 mg PO DAILY enoxaparin mg subcut hydrochlorothiazide 25 mg PO DAILY hydrocortisone acetate (Anucort-HC) 25 mg ND BID 1 week lisinopril 40 mg PO DAILY warfarin 2.5 mg PO DAILY HPI HPI rectal bleeding, hemorrhoids: Details: 68-year-old male referred for rectal bleeding with hemorrhoids. He says that last May 17, he knows this passage of small amounts of bright blood on wiping as well as on the toilet. He says it happened for about 2 weeks although this did not happen every day. He denies any pain with bowel movements He is on Coumadin for a mechanical heart valve. He said he has been on Coumadin for more than 20 years He says that he had undergone a colonoscopy with Dr. Mera about 3 years ago and this was unremarkable. He was told he is to undergo a colonoscopy every 5 years. He says he has not had any bleeding for about a full month now. He denies any problems with bowel movements. He also describes having radiation for prostate cancer last year. [facility] Medical History (Updated 06/28/24 @ 15:39 by Fer Meier MD) Bleeding hemorrhoids History of atrial fibrillation Arrhythmia On anticoagulant therapy Hx of valvular heart disease History of melanoma Hyperlipidemia HTN (hypertension) Surgical History History of melanoma excision History of mechanical aortic valve replacement History of nasal surgery History of back surgery Hx of colonoscopy Social History Are you a primary hospice patient care secretary to a significant other at home: No Do you presently have visiting nurse or other home services: No Patient Tobacco Use Status: Never used Tobacco Review of Systems Const Denies chills and Denies fever(s) Card Denies chest pain, Denies dyspnea and Denies dyspnea on exertion Resp Denies cough, Denies dyspnea and Denies dyspnea on exertion GI Reports hematochezia and Denies change in bowel habits Denies hematuria and Denies difficulty urinating Musc Denies back pain and Denies limited range of motion Neuro Denies focal weakness and Denies convulsions Psych Denies depression and Denies mood swings Physical Exam Vital Signs: BMI result Body Mass Index 35.9 Const General: comfortable and no acute distress Orientation/consciousness: patient oriented x3 Neck Neck: Yes no lymphadenopathy Resp Auscultation: clear to auscultation bilaterally Cardio Rhythm: regular rhythm GI Palpation (GI): Soft to palpation, nontender and no guarding Neuro General: patient oriented x3 Office Procedures Anoscopy He was in donavon-knife position. The anoscope was gently inserted. A full examination of the anal canal was done. There was note of internal external hemorrhoids, moderate size, no other lesions, no fissure, no ulcer, no induration on digital exam. The internal hemorrhoids appeared to bleed easily. There was no tenderness or pain [id number] Assessment & Plan Assessment & Plan (1) Bleeding hemorrhoids: Code(s): K64.9 - Unspecified hemorrhoids Category: Medical Plan: He describes episodes of passage of bright blood per rectum. He said he has not noticed this for about a month now. He does have very prominent internal and external hemorrhoids and appeared to be the likely source of outlet bleeding. I explained this to him. He is on anticoagulation with Coumadin so this makes him prone to bleeding from his hemorrhoids as well. I do not feel that he needs a repeat colonoscopy. I as able to review his records and he just had a colonoscopy in 2021 which showed small polyps as well as hemorrhoids. I did tell him that if his bleeding becomes severe or problems with hemorrhoids, he can come back to the office to be re-evaluated. I advised him to avoid straining and constipation Coding Level of Care Code New Pt Level 3 (50873) Diagnoses Bleeding hemorrhoids K64.9 CPT Codes Details - CPT: [id number] ([id number])
[2024-06-28 15:22] VITALS: BMI 35.9
== END 2024-06-28 15:49 | disposition home or self-care (01) ==
PROVIDERS: PCP Internal Medicine; Visit Provider Surgery
DX: K64.9 Unspecified hemorrhoids (principal)
CPT/HCPCS: 46600; 99203

== ENCOUNTER → 2024-06-28 15:21 | Outpatient (BNVA) | payer MEDICARE, SELFPAY | PROVIDERS: PCP Internal Medicine; Visit Provider Surgery | DX: K64.9 Unspecified hemorrhoids (principal); Z95.2 Presence of prosthetic heart valve; Z79.01 Long term (current) use of anticoagulants | CPT/HCPCS: 46600; 99202 ==

== ENCOUNTER 2024-08-31 11:16 | Outpatient (REF) | payer MEDICARE, SELFPAY ==
[2024-08-31 13:15] LABS: MANUAL DIFF FLAG NO
[2024-08-31 13:24] LABS: INTERNATIONAL NORM RATIO 3.1 (0.9-1.1); Prothrombin Time 35.8 SEC (10.9-12.4)
[2024-08-31 13:26] LABS: Basophils Absolute Auto 0.1 X10*3/uL (0.0-0.2); Basophils Percent Auto 1.2 % (0-2); Eosinophils Absolute Auto 0.3 X10*3/uL (0.0-0.4); Eosinophils Percent Auto 5.1 % (0-4); Hematocrit 26.5 % (42.0-52.0); Hemoglobin 8.2 g/dl (14.0-18.0); Imm Gran Abs Auto 0.03 X10*3/uL (0.00-0.03); Imm Gran Pct Auto 0.5 % (0.0-0.4); Lymphocytes Absolute Auto 0.9 X10*3/uL (1.2-4.9); Lymphocytes Percent Auto 15.2 % (20-40); Mean Corpuscular HGB Conc 30.9 g/dl (31.0-36.0); Mean Corpuscular Hemoglobin 27.9 pg (27.0-33.0); Mean Corpuscular Volume 90.1 fL (80.0-98.0); Mean Platelet Volume 12.2 fL (9.4-12.4); Monocytes Absolute Auto 0.4 X10*3/uL (0.1-1.2); Neutrophils Absolute Auto 4.1 x10*3/uL (2.0-8.3); Platelet Count 261 X10*3/uL (160-400); Red Blood Count 2.94 X10*6/uL (4.60-5.80); Red Cell Distribution Width 17.2 % (11.0-16.0); White Blood Count 5.7 X10*3/uL (4.8-10.8)
[2024-08-31 13:39] LABS: Alanine Aminotransferase 40 U/L (0-40); Albumin Level 4.2 g/dL (3.5-5.0); Alkaline Phosphatase 52 U/L (39-117); Anion Gap 14 (12-20); Aspartate Amino Transferase 28 U/L (5-37); Bilirubin Total 0.9 mg/dL (0.0-1.0); Blood Urea Nitrogen 22 mg/dL (9-16); Calcium 9.5 mg/dL (8.4-10.2); Carbon Dioxide 29 mmol/L (22-29); Chloride 103 mmol/L (96-108); Estimated Glomerular Filt Rate > 60; Glucose Random 123 mg/dL (60-115); Iron 39 mcg/dL (45-160); Percent Iron Saturation 12 % (15-50); Potassium 3.9 mmol/L (3.3-5.1); Sodium 142 mmol/L (135-145); Total Iron Binding Capacity 327 mcg/dL (228-428); Total Protein 6.6 g/dL (6.5-8.0); Unsaturated Iron Binding 288 ug/dL
== END 2024-08-31 11:17 | disposition home or self-care (01) ==
LOC: HO.HMGCLDS 11:16
PROVIDERS: PCP Internal Medicine; Visit Provider Internal Medicine
DX: K62.5 Hemorrhage of anus and rectum (principal); Z79.01 Long term (current) use of anticoagulants
CPT/HCPCS: 36415; 80053; 83540; 85025; 85610

== ENCOUNTER 2024-09-03 10:12 | Outpatient (AMB) | payer MEDICARE, SELFPAY ==
--- NOTE | 2024-09-03 10:22 | MHC.OFFVIS ---
Vital Signs 09/03/24 10:25 Height 5 ft 10 in Weight 264 lb BMI 37.9 BP 104/60 Blood Pressure Location Lt brachial Position Sitting Pulse 68 Intake Visit Reasons: Rectal bleeding Intake Note: Pt c/o:admits to bleeding in the stool and when cleaning for the past 4 wks, denies straining or constipation Linen Room Supervisor Required: No Accompanied by: Family/Other Allergies No Known Allergies Allergy (Verified 09/03/24 10:23) HPI HPI Rectal bleeding: Details: 69-year-old male here for follow-up for bleeding hemorrhoids. He describes bright red blood at that time transiently. I had actually seen him last June, for this problem. This seemed to have resolved around that time when I saw him. He is on anticoagulation with Coumadin because of a history of valvular disease. He also has had a colonoscopy about 3 years ago and is supposed to have 1 every [address] Mera for this. He says for the past 4 weeks, he has been noticing watery stools all the time and this is burgundy in color. He says that this is not bright red compared to when he had seen me in June,. [facility] Medical History (Updated 09/03/24 @ 10:35 by Fer Meier MD) Dark stools Bleeding hemorrhoids History of atrial fibrillation Arrhythmia On anticoagulant therapy Hx of valvular heart disease History of melanoma Hyperlipidemia HTN (hypertension) Surgical History History of melanoma excision History of mechanical aortic valve replacement History of nasal surgery History of back surgery Hx of colonoscopy Social History Are you a primary childcare administrator to a significant other at home: No Do you presently have visiting nurse or other home services: No Patient Tobacco Use Status: Never used Tobacco Review of Systems Const Denies chills, Denies fever(s) and Reports weakness Card Denies chest pain, Denies dyspnea and Denies dyspnea on exertion Resp Denies cough, Denies dyspnea and Denies dyspnea on exertion GI Reports change in bowel habits Denies hematuria and Denies difficulty urinating Musc Denies back pain and Denies limited range of motion Neuro Denies focal weakness, Denies convulsions and Reports weakness Psych Denies depression and Denies mood swings Physical Exam Vital Signs: Last Vital Signs Pulse 68 09/03/24 10:25 BP 104/60 09/03/24 10:25 BMI result Body Mass Index 37.9 Const General: comfortable and no acute distress Orientation/consciousness: patient oriented x3 Neck Neck: Yes no lymphadenopathy Resp Auscultation: clear to auscultation bilaterally Cardio Rhythm: regular rhythm GI Palpation (GI): Soft to palpation, nontender and no guarding Neuro General: patient oriented x3 Assessment & Plan Assessment & Plan (1) Dark stools: Code(s): R19.5 - Other fecal abnormalities Category: Medical Plan: He describes having dark stools now all the time which is also very watery. This is not bright red compared to when I first saw him in June,. I recommended for him to see Dr. Mera as he may need to have a repeat colonoscopy and endoscopy. He is on anticoagulation therapy I told him that I will see him again in the office after he sees Dr. Mera. It does not appear that his hemorrhoids are causing him to have dark stools at this time. His was with him during the visit. Coding Level of Care Code Est Pt Level 3 (32147) Diagnoses Dark stools R19.5
[2024-09-03 10:25] VITALS: BP 104/60; PULSE 68; BMI 37.9
== END 2024-09-03 10:34 | disposition home or self-care (01) ==
PROVIDERS: PCP Internal Medicine; Referring Provider Internal Medicine; Visit Provider Surgery
DX: R19.5 Other fecal abnormalities (principal)
CPT/HCPCS: 99213

== ENCOUNTER → 2024-09-03 10:12 | Outpatient (BNVA) | payer MEDICARE, SELFPAY | PROVIDERS: PCP Internal Medicine; Referring Provider Internal Medicine; Visit Provider Surgery | DX: R19.5 Other fecal abnormalities (principal) | CPT/HCPCS: 99212 ==

== ENCOUNTER 2024-09-06 13:33 | Outpatient (REF) | payer MEDICARE, SELFPAY ==
[2024-09-06 16:29] LABS: MANUAL DIFF FLAG NO
[2024-09-06 16:34] LABS: Basophils Absolute Auto 0.1 X10*3/uL (0.0-0.2); Basophils Percent Auto 1.5 % (0-2); Eosinophils Absolute Auto 0.4 X10*3/uL (0.0-0.4); Eosinophils Percent Auto 6.6 % (0-4); Hematocrit 24.5 % (42.0-52.0); Hemoglobin 7.4 g/dl (14.0-18.0); Imm Gran Abs Auto 0.02 X10*3/uL (0.00-0.03); Imm Gran Pct Auto 0.4 % (0.0-0.4); Lymphocytes Absolute Auto 1.4 X10*3/uL (1.2-4.9); Lymphocytes Percent Auto 27.1 % (20-40); Mean Corpuscular HGB Conc 30.2 g/dl (31.0-36.0); Mean Corpuscular Hemoglobin 27.3 pg (27.0-33.0); Mean Corpuscular Volume 90.4 fL (80.0-98.0); Mean Platelet Volume 11.9 fL (9.4-12.4); Monocytes Absolute Auto 0.5 X10*3/uL (0.1-1.2); Monocytes Percent Auto 9.5 % (2-11); Neutrophils Absolute Auto 2.9 x10*3/uL (2.0-8.3); Neutrophils Percent Auto 54.9 % (45-73); Platelet Count 277 X10*3/uL (160-400); Red Blood Count 2.71 X10*6/uL (4.60-5.80); Red Cell Distribution Width 17.4 % (11.0-16.0); White Blood Count 5.3 X10*3/uL (4.8-10.8)
== END 2024-09-06 13:34 | disposition home or self-care (01) ==
LOC: HO.HMGCLDS 13:33
PROVIDERS: PCP Internal Medicine; Visit Provider Internal Medicine
DX: Z13.89 Encounter for screening for other disorder (principal)
CPT/HCPCS: 36415; 85025

== ENCOUNTER 2024-09-07 14:22 | Inpatient (IN) | payer MEDICARE, SELFPAY ==
[2024-09-07] VITALS (12 sets, daily range): BP systolic 100–126; BP diastolic 52–83; PULSE 54–77; RESP 14–20; TEMP 36.1–36.8; O2SAT 97–99; BMI 38.2; BMI 38.0
--- NOTE | 2024-09-07 14:31 | ED.GENADULT ---
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 Over the past 4-5 weeks the patient has noted dark tarry stools. He has intermittent episodes, at times having daily dark, tarry stools. Over the past day, he has noted bright red blood per rectum, with the dark tarry stool. Associated fatigue, and lightheadedness. Denies abdominal pain, chest pain, shortness of breath or dizziness. Related Data Home Medications ?Medication ?Instructions ?Recorded ?Confirmed amlodipine 10 mg tablet 10 mg PO DAILY 12/23/21 06/28/24 aspirin 81 mg tablet,delayed 81 mg PO DAILY 12/23/21 06/28/24 release atenolol 50 mg tablet 50 mg PO BID 12/23/21 06/28/24 atorvastatin 10 mg tablet 10 mg PO DAILY 12/23/21 06/28/24 doxazosin 2 mg tablet 2 mg PO DAILY 12/23/21 06/28/24 hydrochlorothiazide 25 mg tablet 25 mg PO DAILY 12/23/21 06/28/24 lisinopril 40 mg tablet 40 mg PO DAILY 12/23/21 06/28/24 warfarin 2.5 mg tablet 2.5 mg PO DAILY 12/23/21 06/28/24 allopurinol 100 mg tablet 100 mg PO DAILY 09/03/24 atenolol 25 mg tablet 25 mg PO BID 09/03/24 Previous Rx's ?Medication ?Instructions ?Recorded hydrocortisone acetate 25 mg 25 mg [place] BID 1 week #24 ea 05/31/24 rectal suppository (Anucort-HC) Allergies Allergy/AdvReac Type Severity Reaction Status Date / Time No Known Allergies Allergy Verified 09/07/24 14:37 Review of Systems Review of Systems: Yes all other systems are reviewed and are negative Constitutional: Constitutional: Reports fatigue, Denies fever(s) and Reports lethargy Cardiovascular: Cardiovascular: Denies chest pain and Denies dyspnea Respiratory: Respiratory: Denies dyspnea Gastrointestinal: Gastrointestinal: Denies abdominal pain, Reports melena, Denies nausea and Denies vomiting Endocrine: Endocrine: Reports fatigue PMFSH Past Medical History Attestation statement: The following information was validated with the patient. Medical History Dark stools Bleeding hemorrhoids History of atrial fibrillation Arrhythmia On anticoagulant therapy Hx of valvular heart disease History of melanoma Hyperlipidemia HTN (hypertension) Surgical History History of melanoma excision History of mechanical aortic valve replacement History of nasal surgery History of back surgery Hx of colonoscopy Social History Social History Are you a primary pharmacy care coordinator to a significant other at home: No Do you presently have visiting nurse or other home services: No Patient Tobacco Use Status: Never used Tobacco Advance Directives: No Advance Directives Information Provided: No Physical Exam ED Vital Signs: Vital Signs - 24 hr 09/07/24 14:34 09/07/24 15:45 09/07/24 17:22 Temperature 98.2 F 97.9 F 98.2 F Pulse Rate 61 59 70 Respiratory Rate 18 15 20 Blood Pressure 100/59 L 107/52 L 115/66 Pulse Oximetry 99 97 98 Oxygen Delivery Method Room Air Room Air Room Air 09/07/24 17:23 09/07/24 17:39 09/07/24 17:44 Temperature 98.2 F 98.2 F 98.2 F Pulse Rate 77 64 73 Respiratory Rate 17 16 18 Blood Pressure 115/66 115/66 110/68 Pulse Oximetry 98 Oxygen Delivery Method Room Air BMI result Body Mass Index 38.2 Const Other: Alert, overall well in appearance Orientation/consciousness: patient oriented x3 Resp Other: Nonlabored respiration Cardio Other: Normal peripheral perfusion GI Other: Abdomen is soft, nontender nondistended, remnant of melena per rectum Skin Other: Warm dry no rash, somewhat pale Neuro General: patient oriented x3, no focal motor deficits and CN's II-XI intact bilaterally Psych Other: Calm cooperative Course Course Course Narrative: This is an RME performed by Corey Soares CNP: Additional HPI, ROS, PE not included below will be deferred to primary provider. Patient is a 69-year-old male who presents to the emergency department by advised him of his primary care doctor, Dr. Khan, who is concerned for GIB in requesting transfusion PRBC. Patient states over the past 4-5 weeks he has been experiencing black tarry liquid stools, which switched to having bright red present as of yesterday. Currently he states he feels generally weak and lightheaded but denies chest pain or shortness of breath. Outpatient hemoglobin of 7.4 yesterday and INR on 08/31 was 3.1 (on warfarin due to aortic valve). He follows with Dr. 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 Over the past 4-5 weeks the patient has noted dark tarry stools. He has intermittent episodes, at times having daily dark, tarry stools. Over the past day, he has noted bright red blood per rectum, with the dark tarry stool. Associated fatigue, and lightheadedness. Denies abdominal pain, chest pain, shortness of breath or dizziness Problem: Known GI bleed, anticoagulation History: Per patient I have considered the following differential diagnoses: Upper GI bleed lower GI bleed, diverticulosis, colitis, Plan: Patient has had GI bleeding in the past, he has progressively down trending his H&H over the past few months. Screening labs were already obtained including type and screen. He has no abdominal pain, CT not warranted, he needs to be scoped. We will give Protonix 40 mg IV, blood products ordered, the patient has been consented for transfusion. To note, he is followed by Dr. Meier, Dr. Meier was in the ER rounding on another patient, he is in agreement that he requires colonoscopy/endoscopy. I have independently reviewed the following tests: Labs: Critical H&H of 6.8 and 21.9 respectively, no leukocytosis, creatinine slightly bumped at 1.3, no additional electrolyte abnormality, INR 3.1 Lab Data 09/07/24 14:58 09/07/24 14:58 Labs: Lab Results 09/07/24 Range/Units 14:58 WBC 4.5 L (4.8-10.8) X10*3/uL RBC 2.45 L (4.60-5.80) X10*6/uL Hgb 6.8 L* (14.0-18.0) g/dl Hct 21.9 L (42.0-52.0) % MCV 89.4 (80.0-98.0) fL MCH 27.8 (27.0-33.0) pg MCHC 31.1 (31.0-36.0) g/dl RDW 17.4 H (11.0-16.0) % Plt Count 226 (160-400) X10*3/uL MPV 10.4 (9.4-12.4) fL Immature Gran % (Auto) 0.7 H (0.0-0.4) % Neut % (Auto) 61.1 (45-73) % Lymph % (Auto) 21.2 (20-40) % [place] % (Auto) 9.1 (2-11) % Eos % (Auto) 6.4 H (0-4) % Baso % (Auto) 1.5 (0-2) % Lymph # (Auto) 1.0 L (1.2-4.9) X10*3/uL [place] # (Auto) 0.4 (0.1-1.2) X10*3/uL Eos # (Auto) 0.3 (0.0-0.4) X10*3/uL Baso # (Auto) 0.1 (0.0-0.2) X10*3/uL Abs Immat Gran (auto) 0.03 (0.00-0.03) X10*3/uL Absolute Neuts (auto) 2.8 (2.0-8.3) x10*3/uL Absolute Nucleated RBC 0.000 (0.0-0.012) X10*3/uL Nucleated RBC % (auto) 0.0 (0.0-0.2) /100WBC Sodium 142 (135-145) mmol/L Potassium 3.9 (3.3-5.1) mmol/L Chloride 107 (96-108) mmol/L Carbon Dioxide 29 (22-29) mmol/L Anion Gap 10 L (12-20) BUN 18 H (9-16) mg/dL Creatinine 1.34 (0.5-1.4) mg/dL Estim Creat Clear Calc 68.7 Estimated GFR 53 Random Glucose 85 (60-115) mg/dL Calcium 9.7 (8.4-10.2) mg/dL Total Bilirubin 0.6 (0.0-1.0) mg/dL AST 40 H (5-37) U/L ALT 48 H (0-40) U/L Alkaline Phosphatase 51 (39-117) U/L Total Protein 6.3 L (6.5-8.0) g/dL Albumin 3.9 (3.5-5.0) g/dL Blood Type A Positive Antibody Screen NEGATIVE Crossmatch See Detail Discharge Plan Discharge Clinical Impression: UGIB (upper gastrointestinal bleed) Patient Disposition: Admitted As Inpatient Print Language: Liberian
--- NOTE | 2024-09-07 14:37 | ECG_ITS ---
Test Reason : DIZZINESS Blood Pressure : / mmHG Vent. Rate : 067 BPM Atrial Rate : 000 BPM P-R Int : 000 ms QRS Dur : 162 ms QT Int : 466 ms P-R-T Axes : 000 -05 021 degrees QTc Int : 492 ms Atrial fibrillation with premature ventricular or aberrantly conducted complexes Right bundle branch block T wave abnormality, consider lateral ischemia Abnormal ECG When compared with ECG of 17-AUG-2006 21:13, Atrial fibrillation has replaced Sinus rhythm Right bundle branch block is now Present Referred By: Dorothy Soares Electronically Signed By:Shelton Rogers
[2024-09-07 15:05] LABS: MANUAL DIFF FLAG NO
[2024-09-07 15:07] LABS: Basophils Absolute Auto 0.1 X10*3/uL (0.0-0.2); Basophils Percent Auto 1.5 % (0-2); Eosinophils Absolute Auto 0.3 X10*3/uL (0.0-0.4); Eosinophils Percent Auto 6.4 % (0-4); Hematocrit 21.9 % (42.0-52.0); Imm Gran Abs Auto 0.03 X10*3/uL (0.00-0.03); Imm Gran Pct Auto 0.7 % (0.0-0.4); Lymphocytes Percent Auto 21.2 % (20-40); Mean Corpuscular HGB Conc 31.1 g/dl (31.0-36.0); Mean Corpuscular Hemoglobin 27.8 pg (27.0-33.0); Mean Corpuscular Volume 89.4 fL (80.0-98.0); Mean Platelet Volume 10.4 fL (9.4-12.4); Monocytes Absolute Auto 0.4 X10*3/uL (0.1-1.2); Monocytes Percent Auto 9.1 % (2-11); Neutrophils Absolute Auto 2.8 x10*3/uL (2.0-8.3); Neutrophils Percent Auto 61.1 % (45-73); Platelet Count 226 X10*3/uL (160-400); Red Blood Count 2.45 X10*6/uL (4.60-5.80); Red Cell Distribution Width 17.4 % (11.0-16.0); White Blood Count 4.5 X10*3/uL (4.8-10.8)
[2024-09-07 15:13] LABS: Hemoglobin 6.8 g/dl (14.0-18.0)
[2024-09-07 15:24] LABS: Albumin Level 3.9 g/dL (3.5-5.0); Alkaline Phosphatase 51 U/L (39-117); Anion Gap 10 (12-20); Aspartate Amino Transferase 40 U/L (5-37); Bilirubin Total 0.6 mg/dL (0.0-1.0); Blood Urea Nitrogen 18 mg/dL (9-16); Calcium 9.7 mg/dL (8.4-10.2); Carbon Dioxide 29 mmol/L (22-29); Chloride 107 mmol/L (96-108); Creatinine Clr Calc Pharmacy 68.7; Estimated Glomerular Filt Rate 53; Glucose Random 85 mg/dL (60-115); Potassium 3.9 mmol/L (3.3-5.1); Sodium 142 mmol/L (135-145); Total Protein 6.3 g/dL (6.5-8.0)
[2024-09-07 15:37] LABS: Alanine Aminotransferase 48 U/L (0-40)
[2024-09-07] MEDS: Pantoprazole Sodium 40 MG/10 ML VIAL IVPUSH (16:59)
--- NOTE | 2024-09-07 18:00 | P.CONGS_ITS ---
History of Present Illness Consult details Consult date: 09/07/24 Narrative: 69-year old male sent to the ER for low hemoglobin on a blood test. He is known to me for ahistory of bleeding hemorrhoids. I had seen him in June 2024 for what he described as passage of bright red blood per rectum at that time transiently. He says this eventually resolved after I had seen him. However, the past 4 weeks, he began noticing dark stools and he says that his he had been very watery all the time. He says that this is not the same as the that he had seen in June,. He had a CBC yesterday showing a hemoglobin of 7.4 so he was told by his primary care physician to go to the emergency room. He is on anticoagulation with Coumadin because of a history of valvular disease. He also has had a colonoscopy about 3 years ago and is supposed to have 1 every [address] Mera for this. He says for the past 4 weeks, he has been noticing watery stools all the time and this is burgundy in color. He says that this is not bright red compared to when he had seen me in June,. I had actually seen him 4 days ago in the office so I had sent him to Dr. Mera for GI workup for this. He denies any abdominal pain. He feels well overall. He denies signs of orthostasis. Review of Systems 2 Constitutional: Constitutional: Denies chills and Denies fever(s) Cardiovascular: Cardiovascular: Denies chest pain, Denies dyspnea and Denies dyspnea on exertion Respiratory: Respiratory: Denies cough, Denies dyspnea and Denies dyspnea on exertion Gastrointestinal: Gastrointestinal: Reports change in bowel habits and Reports loose stools Comments: Has dark maroon stools Genitourinary: Genitourinary: Denies hematuria and Denies difficulty urinating Musculoskeletal: Musculoskeletal: Denies back pain and Denies limited range of motion Neurologic: Denies focal weakness and Denies convulsions Psychiatric: Psychiatric: Denies depression and Denies mood swings PMF Past Medical History Medical History Dark stools Bleeding hemorrhoids History of atrial fibrillation Arrhythmia On anticoagulant therapy Hx of valvular heart disease History of melanoma Hyperlipidemia HTN (hypertension) Surgical History Surgical History History of melanoma excision History of mechanical aortic valve replacement History of nasal surgery History of back surgery Hx of colonoscopy Social History Social History Household Members: Spouse Housing: House Are you a primary adult care manager to a significant other at home: No Do you presently have visiting nurse or other home services: No Patient Tobacco Use Status: Never used Tobacco service: No Meds Allergies Allergy/AdvReac Type Severity Reaction Status Date / Time No Known Allergies Allergy Verified 09/07/24 14:37 Home Medications ?Medication ?Instructions ?Recorded ?Confirmed ?Last Taken ?Type amlodipine 10 mg tablet 10 mg PO DAILY 12/23/21 09/07/24 09/07/24 08:00 History aspirin 81 mg tablet,delayed 81 mg PO BEDTIME 12/23/21 09/07/24 09/06/24 History release atorvastatin 10 mg tablet 10 mg PO BEDTIME 12/23/21 09/07/24 09/06/24 History doxazosin 2 mg tablet 2 mg PO BEDTIME 12/23/21 09/07/24 09/06/24 History hydrochlorothiazide 25 mg tablet 25 mg PO DAILY 12/23/21 09/07/24 09/07/24 08:00 History lisinopril 40 mg tablet 40 mg PO DAILY 12/23/21 09/07/24 09/07/24 08:00 History warfarin 2.5 mg tablet 2.5 mg PO MOWEFR@1800 12/23/21 09/07/24 09/05/24 History allopurinol 100 mg tablet 100 mg PO DAILY 09/03/24 09/07/24 09/07/24 08:00 History atenolol 25 mg tablet 25 mg PO BID 09/03/24 09/07/24 09/07/24 08:00 History calcium carbonate 500 mg PO DAILY 09/07/24 09/07/24 09/07/24 08:00 History cholecalciferol (vitamin D3) 25 25 mcg PO DAILY 09/07/24 09/07/24 09/07/24 08:00 History mcg (1,000 unit) tablet (Vitamin D3) warfarin 2.5 mg tablet 3.75 mg PO SUTUTHSA@1800 09/07/24 09/07/24 09/06/24 History Physical Exam 2 Vital Signs: Vital Signs: Last Vital Signs Temp 98.2 F 09/07/24 17:44 Pulse 73 09/07/24 17:44 Resp 18 09/07/24 17:44 BP 110/68 09/07/24 17:44 Pulse Ox 98 09/07/24 17:39 O2 Del Method Room Air 09/07/24 17:39 BMI result Body Mass Index 38.2 Const: General: comfortable and no acute distress O rientation/consciousness: patient oriented x3 Neck: Neck: Yes no lymphadenopathy Resp: Auscultation: clear to auscultation bilaterally Cardio: Rhythm: regular rhythm GI: Palpation (GI): Soft to palpation, nontender and no guarding Neuro: General: patient oriented x3 Results Labs 09/09/24 05:43 09/08/24 06:37 Labs: Abnormal lab results 09/07/24 Range/Units 14:58 WBC 4.5 L (4.8-10.8) X10*3/uL RBC 2.45 L (4.60-5.80) X10*6/uL Hgb 6.8 L* (14.0-18.0) g/dl Hct 21.9 L (42.0-52.0) % RDW 17.4 H (11.0-16.0) % Immature Gran % (Auto) 0.7 H (0.0-0.4) % Eos % (Auto) 6.4 H (0-4) % Lymph # (Auto) 1.0 L (1.2-4.9) X10*3/uL Anion Gap 10 L (12-20) BUN 18 H (9-16) mg/dL AST 40 H (5-37) U/L ALT 48 H (0-40) U/L Total Protein 6.3 L (6.5-8.0) g/dL Crossmatch See Detail Short CBC 09/07/24 Range/Units 14:58 WBC 4.5 L (4.8-10.8) X10*3/uL Hgb 6.8 L* (14.0-18.0) g/dl Hct 21.9 L (42.0-52.0) % Plt Count 226 (160-400) X10*3/uL BMP 09/07/24 14:58 Sodium 142 Potassium 3.9 Chloride 107 Carbon Dioxide 29 BUN 18 H Creatinine 1.34 Calcium 9.7 Liver Function 09/07/24 Range/Units 14:58 Total Bilirubin 0.6 (0.0-1.0) mg/dL AST 40 H (5-37) U/L ALT 48 H (0-40) U/L Alkaline Phosphatase 51 (39-117) U/L Albumin 3.9 (3.5-5.0) g/dL All other labs normal. Assessment and Plan (1) Dark stools: Status: Acute He has been passing dark burgundy stools the past 4 weeks. This is not the same as the bright red blood that he had been passing previously from hemorrhoids. He is hemoglobin is now at 6.8. He needs a full workup with a colonoscopy and endoscopy. He is on chronic anticoagulation for valvular heart disease. His anticoagulation therapy should be on hold for now. I had actually sent him to Dr. 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 He is being transfused at this time. He is hemodynamically stable. I will follow along while he is in the hospital. Procedures Date of Service Date of Service: 09/09/24
--- NOTE | 2024-09-07 19:27 | P.HPHOSP_ITS ---
History of Present Illness Date of Service: 09/07/24 Chief Complaint: black stools This is a 69-year-old male with pertinent 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 Patient states he 1st noticed bright red blood in stools in May. It was intermittent. Patient saw General surgery in June and was referred to Gastroenterology. Patient states over the last 3-4 weeks, he has noticed liquid black stools, multiple throughout the day. No abdominal pain, nausea or vomiting. No fever or chills. Patient is on Coumadin for prosthetic heart valve. No chest pain, palpitations, shortness of breath, changes in urinary habits. In the emergency department, hemoglobin found to be 6.8 and 1 unit PRBC ordered. Review of Systems 2 Constitutional: Constitutional: Reports fatigue, Reports malaise and Reports weakness Cardiovascular: Cardiovascular: Reports no additional cardiovascular complaints Respiratory: Respiratory: Reports no additional respiratory complaints Gastrointestinal: Gastrointestinal: Reports melena and Reports hematochezia Genitourinary: Genitourinary: Reports no additional male genitourinary complaints Neurologic: Reports weakness Endocrine: Endocrine: Reports fatigue [facility] Medical History Dark stools Bleeding hemorrhoids History of atrial fibrillation Arrhythmia On anticoagulant therapy Hx of valvular heart disease History of melanoma Hyperlipidemia HTN (hypertension) Surgical History History of melanoma excision History of mechanical aortic valve replacement History of nasal surgery History of back surgery Hx of colonoscopy Social History Are you a primary hospice spiritual care coordinator to a significant other at home: No Do you presently have visiting nurse or other home services: No Patient Tobacco Use Status: Never used Tobacco Advance Directives: No Advance Directives Information Provided: No Meds Allergies Allergy/AdvReac Type Severity Reaction Status Date / Time No Known Allergies Allergy Verified 09/07/24 14:37 Home Medications ?Medication ?Instructions ?Recorded ?Confirmed ?Last Taken ?Type amlodipine 10 mg tablet 10 mg PO DAILY 12/23/21 09/07/24 09/07/24 08:00 History aspirin 81 mg tablet,delayed 81 mg PO BEDTIME 12/23/21 09/07/24 09/06/24 History release atorvastatin 10 mg tablet 10 mg PO BEDTIME 12/23/21 09/07/24 09/06/24 History doxazosin 2 mg tablet 2 mg PO BEDTIME 12/23/21 09/07/24 09/06/24 History hydrochlorothiazide 25 mg tablet 25 mg PO DAILY 12/23/21 09/07/24 09/07/24 08:00 History lisinopril 40 mg tablet 40 mg PO DAILY 12/23/21 09/07/24 09/07/24 08:00 History warfarin 2.5 mg tablet 2.5 mg PO MOWEFR@1800 12/23/21 09/07/24 09/05/24 History allopurinol 100 mg tablet 100 mg PO DAILY 09/03/24 09/07/24 09/07/24 08:00 History atenolol 25 mg tablet 25 mg PO BID 09/03/24 09/07/24 09/07/24 08:00 History calcium carbonate 500 mg PO DAILY 09/07/24 09/07/24 09/07/24 08:00 History cholecalciferol (vitamin D3) 25 25 mcg PO DAILY 09/07/24 09/07/24 09/07/24 08:00 History mcg (1,000 unit) tablet (Vitamin D3) warfarin 2.5 mg tablet 3.75 mg PO SUTUTHSA@1800 09/07/24 09/07/24 09/06/24 History Physical Exam 2 Vital Signs and Narrative: Vital Signs: Last Vital Signs Temp 98.2 F 09/07/24 17:44 Pulse 73 09/07/24 17:44 Resp 18 09/07/24 17:44 BP 110/68 09/07/24 17:44 Pulse Ox 98 09/07/24 17:39 O2 Del Method Room Air 09/07/24 17:39 BMI result Body Mass Index 38.2 Middle-aged male lying in bed in no distress Neck supple, no JVD Regular rate and rhythm, S1-S2 heard Regular breath sounds bilaterally, no wheezing or crackles appreciated Abdomen soft nontender, no guarding, no rigidity Patient is awake, alert and oriented to self, place, time and person ; no focal motor deficit Psych: Normal mood No pedal edema Results Labs 09/07/24 14:58 09/07/24 14:58 Labs: Laboratory Results - last 24 hr 09/07/24 14:58 MCV 89.4 MCH 27.8 MCHC 31.1 RDW 17.4 H Plt Count 226 MPV 10.4 Immature Gran % (Auto) 0.7 H Neut % (Auto) 61.1 Lymph % (Auto) 21.2 [place] % (Auto) 9.1 Eos % (Auto) 6.4 H Baso % (Auto) 1.5 Lymph # (Auto) 1.0 L [place] # (Auto) 0.4 Eos # (Auto) 0.3 Baso # (Auto) 0.1 Abs Immat Gran (auto) 0.03 Absolute Neuts (auto) 2.8 Absolute Nucleated RBC 0.000 Nucleated RBC % (auto) 0.0 Anion Gap 10 L Estim Creat Clear Calc 68.7 Estimated GFR 53 Random Glucose 85 Calcium 9.7 Total Bilirubin 0.6 AST 40 H ALT 48 H Alkaline Phosphatase 51 Total Protein 6.3 L Albumin 3.9 Blood Type A Positive Antibody Screen NEGATIVE Crossmatch See Detail Assessment and Plan (1) GI bleed: Status: Acute Plan This is a 69-year-old male with pertinent 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 #. GI bleed with blood loss anemia: Will admit patient with cardiac monitoring. Initiated IV Protonix. Patient being transfused 2 unit PRBC in the ER. Closely monitor H&H. Hold aspirin and Coumadin. GI consulted #. Hypertension: Hold antihypertensives in the setting of GI bleed #. Prosthetic valve: Hold warfarin as above. Montior INR #. Mixed hyperlipidemia: On statin Med rec pending DVT prophylaxis: Mechanical Full code Admit as inpatient and will require two night minimum hospital stay for management of GI bleed, close hemodynamic monitoring with monitoring of H&H (as above), which is not possible in a lesser acute setting. Specialist consult pending Quality Stroke Does the patient have a stroke diagnosis?: No VTE Prior VTE?: No VTE Risk Level:: Medical - moderate - high VTE Device Contraindication: N/A - Device Ordered VTE Drug Contraindication: Treatment Not Indicated
--- NOTE | 2024-09-07 20:10 | PM.EVENT ---
Event Note Date of Service: 09/07/24 Event Note: GI Consult-Full note dictated-History from patient, , and EMR. D/W Hospitalist, Dr. Herman. Imp: Slow and chronic GI bleeding in a 69 yo male on Coumadin and Aspirin. Describes foul smelling and burgundy/dark stools raising a suspicion of an UGI source such as an ulcer or gastritis. 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 His upper endo in 12/2021 was negative and his colonoscopy in 12/2021 revealed only small tubular adenomas. He presently appears very stable so I would not reverse the Coumadin in light of the presence of his mechanical aortic valve. Rec: Transfuse 2 u PRBC's, F/U daily CBC and PT with INR, clear liquids for now, Upper endo and Colonoscopy early in the week once INR drifts down. Full consent obtained for this, including risks of bleeding and perforation. Please call if he has signs of active bleeding. D/W patient and in detail. They are comfortable with this plan. Thanks Time Spent With Patient Time: Total time managing care of this patient today ____ minutes.
--- NOTE | 2024-09-07 20:42 | PHA.MEDREC ---
Addendum entered by Darrell Andrade RPh 09/07/24 20:52: MED REC CHECKED BY [facility] Original Note: Pharmacy Consult ? Medication Reconciliation Pharmacy has completed the medication reconciliation. Confirmed medications with patient and patients at bedside. Patient confirmed he is taking Aspirin 81mg tabs at bedtime. He also confirmed his Atenolol 25mg tab 1 BID. He confirmed his Warfarin dose taking 2.5mg tabs Mondays, Wednesdays and Fridays and states he took the 2.5mg tab this past Wednesday 09/05 he was not able to take his night medications today due to coming and he states he takes 3.75mg tabs on Sundays, Tuesdays, and Saturdays and confirmed he took that dose yesterday 09/07. He confirmed he took his medications this morning at 0800.
[2024-09-08] VITALS (9 sets, daily range): BP systolic 109–140; BP diastolic 63–79; PULSE 60–89; RESP 18–20; TEMP 36.1–36.4; O2SAT 96–99
[2024-09-08] MEDS: 0.9 % Sodium Chloride Flush 3 ML SYRINGE IVFLUSH ×4 (01:59→20:11)
--- NOTE | 2024-09-08 03:28 | CONS_ITS ---
DATE OF SERVICE: 09/07/2024 REASON FOR CONSULTATION: GI bleeding and anemia. HISTORY OF PRESENT ILLNESS: This has been obtained from the patient, his , and the medical record. The patient is a 69-year-old male, known to me from previous office visits and GI procedures. The patient describes some onset of rectal bleeding over the summer. He describes that this was primarily bright red blood either mixed with normal stool or on the toilet paper. This was felt to be hemorrhoidal in nature and was treated symptomatically with some [id number] medication. This was primarily in May, and then June through July, he was feeling well with normal bowel movements. He was not having any further bleeding. He enjoys a good appetite without any significant heartburn, dysphagia, nausea, nor vomiting. Over the past 3 or 4 weeks, he describes the onset of recurrent GI bleeding, but this was different with primarily dark or burgundy stools which were foul smelling. He describes at times they were almost black. Again, he never had any upper GI complaints. His history is notable for being on chronic Coumadin in relation to a mechanical aortic valve placement. He is also on low-dose aspirin. He denies the use of any NSAIDs, antibiotics, tobacco, nor significant alcohol. Over the course of the last few weeks, his stools have been either burgundy or black consistently without any intervening normal appearing stool. He developed progressive fatigue and some weakness. He was found to be quite anemic and was referred to the ER. Again, there has been no upper GI complaints such as vomiting, dysphagia, early satiety, nor abdominal pains. He denies any jaundice nor weight loss. He denies any previous history of GI bleeding in relation to ulcer disease. I did have him undergo an upper endoscopy and colonoscopy in December 2021. The colonoscopy revealed several small polyps that were removed. The pathology revealed that they are all tubular adenomas. He also had an upper endoscopy on that same day, which was unremarkable and specifically without any evidence of esophagitis, gastritis, nor peptic ulcer disease. There was a small hiatal hernia. He has not been on any acid suppression therapy. Since arrival in the ER, he has had no sign of active bleeding. He just finished his first unit of blood. He has been hemodynamically stable. Of note, he did have radiation treatments for prostate cancer last year without any adverse effects. However, over the last few weeks, in addition to the bleeding, he has noticed a change in his BM's where they have become somewhat smaller, more urgent, and narrow, MEDICATIONS: At home included Coumadin, aspirin, amlodipine, atenolol, atorvastatin, doxazosin, hydrochlorothiazide, lisinopril, allopurinol, and atenolol. PAST MEDICAL HISTORY: Prostate cancer treated with radiation treatments and hormones last year. Colon polyps with colonoscopies in 2010, 2015 and most recently in 2021 with removal of tubular adenomas in 2010 and 2021. Small hiatal hernia. Aortic valve replacement with a mechanical valve in 2003. 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 Back surgery. Deviated septum. Knee surgery. There is no reported history of diabetes, OR, stroke, nor lung disease. Hypertension. Hyperlipidemia. SOCIAL HISTORY: He is . He does not smoke, nor use any significant amounts of alcohol. FAMILY HISTORY: Negative for GI malignancy. REVIEW OF SYSTEMS: CONSTITUTIONAL: He has been feeling somewhat weak and tired at home in relation to the anemia. SKIN: Without rash. No pruritus. CARDIAC: No chest pain. PULMONARY: No cough, no hemoptysis. GI: As above. URINARY: No dysuria. No hematuria. NEUROLOGIC: No headache or seizures. PHYSICAL EXAMINATION: GENERAL: The patient is a pleasant, alert, comfortable appearing male. SKIN: Warm and dry. Anicteric sclerae. Moist mucous membranes. NECK: Supple. CHEST: Clear. CARDIAC: Normal S1, S2 with a mechanical heart sound. ABDOMEN: Soft, nondistended, nontender without mass. EXTREMITIES: Without edema. LABORATORY DATA: White blood cell count 4.5, hemoglobin 6.8. Hemoglobin yesterday was 7.4. Hemoglobin on August 31 was 8.2. Hemoglobin in May was 9.8. MCV 89, platelets 226,000. PT 35.8 with INR 3.1. Normal electrolytes. BUN 18, creatinine 1.3, iron 39, iron saturation 12%. Normal liver profile except for an AST 40 and ALT 48. Albumin 3.9. He did have a CT scan of the abdomen and pelvis in May that was unremarkable other than some mild cardiomegaly, mild splenomegaly, and small bilateral inguinal hernias containing fat. IMPRESSION: Given the patient's clinical history and what appears to be a slow chronic GI bleed while on anticoagulation with the dark stools, this does raise the possibility of potential etiologies of the bleeding as being an upper GI source such as a silent ulcer or gastritis. Given his negative endoscopy in 2021, I doubt neoplasm would be a consideration. Other possibilities would include a lower GI source such as radiation proctitis, although typically one would expect bright red blood. However, he does give a clinical history of the change in bowel habits with some sense of urgency and smaller stools, which could go along with proctitis. I doubt this represents any type of GI neoplasm. At this point, he appears quite stable so I do not think he needs the INR reversed given the underlying mechanical aortic valve. Obviously, if he begins having active bleeding, we would have to reconsider either reversing it with FFP and/or vitamin K. However at this point, I would not recommend that. I would give him a total 2 units of blood over the course of tonight and until tomorrow and maintain hemoglobin of approximately 9. I will start him on clear liquids and continue that as I would then plan for an upper endoscopy and colonoscopy by early in the week once the hemoglobin has improved and hopefully the PT/INR has drifted down to a more acceptable level for GI procedures and potential therapeutic intervention. He will continue to have daily labs including PT/INR, and CBC. We did review the GI procedures in detail, including risks of bleeding and perforation. Consent has been obtained from the patient and his . I did advise him that the procedures will be done either by myself or Dr. Molina depending upon the schedule. He will receive antibiotics for the mechanical aortic valve as he has in the past. This has been discussed with the patient and his in detail. They are comfortable with this plan. MD LYLE Tristan/MAYELA / [id number] IHSAN
[2024-09-08] MEDS: Pantoprazole Sodium 40 MG/10 ML VIAL IVPUSH ×2 (05:49→16:47)
--- NOTE | 2024-09-08 06:59 | P.PNIM_ITS ---
Subjective Subjective Date of Service: 09/08/24 Interval History: f/u on GIB, acute blood loss anemia feels better, H/H is better Physical Exam 2 Vital Signs: Vital Signs: Last Vital Signs Temp 97.1 F 09/08/24 04:00 Pulse 61 09/08/24 04:00 Resp 20 09/08/24 04:00 BP 117/63 09/08/24 04:00 Pulse Ox 96 09/08/24 04:00 O2 Del Method Room Air 09/08/24 04:00 BMI result Body Mass Index 38.0 Const: Other: General: AO X 3, no acute distress Resp: CTA bilateral CVS: S1,S2,RRR GI: +BS, NT, no distention Skin: No rash Neuro: motor grossly intact Psych: appropriate affect Objective Data Active Medications Acetaminophen (Acetaminophen 325 Mg Tablet) 650 mg PO Q6H PRN PRN Reason: Pain, Mild (Pain Scale 1-3), fever or headache Atorvastatin Calcium (Atorvastatin Calcium 10 Mg Tablet) 10 mg PO BEDTIME SHANE Calcium Carbonate (Calcium Carbonate 750 Mg Tab.Chew) 750 mg PO Q4H PRN PRN Reason: Heartburn Calcium Carbonate (Calcium Oyster Shell Elemental 500 Mg Tablet) 500 mg PO DAILY SHANE Doxazosin Mesylate (Doxazosin Mesylate 2 Mg Tablet) 2 mg PO BEDTIME SHANE; Protocol Magnesium Hydroxide (Milk Of Magnesia 30 Ml Oral.Susp) 30 ml PO DAILY PRN PRN Reason: Constipation Melatonin (Melatonin 3 Mg Tablet) 6 mg PO BEDTIME PRN PRN Reason: Insomnia Ondansetron HCl (Ondansetron Hcl 4 Mg/2 Ml Vial) 4 mg IVPUSH Q8H PRN PRN Reason: Nausea and Vomiting Pantoprazole Sodium (Pantoprazole Sodium 40 Mg/10 Ml Vial) 40 mg IVPUSH BID@0630,1630 [facility] Last Admin: 09/08/24 05:49 Dose: 40 mg Documented By: TONY Sodium Chloride (0.9 % Sodium Chloride Flush 3 Ml Syringe) 3 ml IVFLUSH QSHIFT [facility] Last Admin: 09/08/24 01:59 Dose: 3 ml Documented By: TONY Vitamin D (Cholecalciferol (Vitamin D3) 25 Mcg Tablet) 25 mcg PO DAILY [facility] Labs 09/09/24 05:43 09/08/24 06:37 Labs: Laboratory Results - last 24 hr 09/07/24 14:58 MCV 89.4 MCH 27.8 MCHC 31.1 RDW 17.4 H Plt Count 226 MPV 10.4 Immature Gran % (Auto) 0.7 H Neut % (Auto) 61.1 Lymph % (Auto) 21.2 [place] % (Auto) 9.1 Eos % (Auto) 6.4 H Baso % (Auto) 1.5 Lymph # (Auto) 1.0 L [place] # (Auto) 0.4 Eos # (Auto) 0.3 Baso # (Auto) 0.1 Abs Immat Gran (auto) 0.03 Absolute Neuts (auto) 2.8 Absolute Nucleated RBC 0.000 Nucleated RBC % (auto) 0.0 Anion Gap 10 L Estim Creat Clear Calc 68.7 Estimated GFR 53 Random Glucose 85 Calcium 9.7 Total Bilirubin 0.6 AST 40 H ALT 48 H Alkaline Phosphatase 51 Total Protein 6.3 L Albumin 3.9 Blood Type A Positive Antibody Screen NEGATIVE Crossmatch See Detail Assessment and Plan (1) GI bleed: Status: Acute (2) UGIB (upper gastrointestinal bleed): Status: Acute (3) Dark stools: Status: Acute Plan 69/M with pertinent history of prosthetic heart valve on Coumadin, hypertension, gout, mixed hyperlipidemia, prostate cancer status post radiation who presents to the emergency department for evaluation of black stools and profound anemia UGI bleed with acute blood loss anemia on anticoagulation -hold coumdin and aspirin -Transfusion w/ hgb goal of 10 -IV protonix -for EGD+ Colonoscopy next week. Hypertension -hold meds as BP within normal Prosthetic valve -hold coumadin, no vitamin k -monitor INR, start heparin once INR < 2 Mixed hyperlipidemia: On statin DVT prophylaxis-mechanical device Full code need for inpt: w/u for GIB and anemia needing transfusion Quality Stroke Does the patient have a stroke diagnosis?: No VTE Prior VTE?: No VTE Risk Level:: Medical - moderate - high VTE Device Contraindication: N/A - Device Ordered VTE Drug Contraindication: Treatment Not Indicated
[2024-09-08 07:14] LABS: Hematocrit 25.8 % (42.0-52.0); Mean Corpuscular Hemoglobin 27.5 pg (27.0-33.0); Mean Corpuscular Volume 88.7 fL (80.0-98.0); Mean Platelet Volume 11.1 fL (9.4-12.4); Platelet Count 207 X10*3/uL (160-400); Red Blood Count 2.91 X10*6/uL (4.60-5.80); Red Cell Distribution Width 17.6 % (11.0-16.0); White Blood Count 4.7 X10*3/uL (4.8-10.8)
[2024-09-08 07:15] LABS: INTERNATIONAL NORM RATIO 2.5 (0.9-1.1); Prothrombin Time 28.8 SEC (10.9-12.4)
[2024-09-08 07:30] LABS: Anion Gap 11 (12-20); Blood Urea Nitrogen 17 mg/dL (9-16); Calcium 9.1 mg/dL (8.4-10.2); Carbon Dioxide 27 mmol/L (22-29); Chloride 107 mmol/L (96-108); Creatinine Clr Calc Pharmacy 87.4; Estimated Glomerular Filt Rate > 60; Glucose Random 102 mg/dL (60-115); Potassium 3.7 mmol/L (3.3-5.1); Sodium 141 mmol/L (135-145)
[2024-09-08] MEDS: Cholecalciferol (Vitamin D3) 25 MCG TABLET PO (09:17)
[2024-09-08] MEDS: Calcium Oyster Shell Elemental 500 MG TABLET PO (09:18)
[2024-09-08] MEDS: allopurinoL 100 MG TABLET PO (15:01)
--- NOTE | 2024-09-08 16:15 | MHC.CM.PN ---
CM MET WITH PT AND AT BEDSIDE PT LIVES AT HOME AND IS INDEPENDENT WITH CARE PT HAS NO DME AND NO SERVICES HE SAYS HE THINKS HE HAS A HCP, COPY REQUESTED PCP: STERLING ANAND IMM DELIVERED DCP: HOME NO SERVICES VIA PRIVATE TRANSPORT
--- NOTE | 2024-09-08 19:16 | P.PNGI_ITS ---
Subjective Subjective Date of Service: 09/08/24 Interval History: Patient is comfortable. Stools are less dark today. Feeling better after transfusions. Denies any GI symptoms. Critical Care Time (minutes): 0 Physical Exam 2 Vital Signs: Vital Signs: Last Vital Signs Temp 97.0 F 09/08/24 18:20 Pulse 63 09/08/24 18:20 Resp 18 09/08/24 18:20 BP 134/70 09/08/24 18:20 Pulse Ox 96 09/08/24 16:00 O2 Del Method Room Air 09/08/24 16:00 BMI result Body Mass Index 38.0 Const: General: cooperative, healthy appearing, comfortable, no acute distress, well developed, alert and awake Eyes: Sclerae: sclerae normal GI: Other: Abd-soft, NT, +BS Skin: Other: Warm and dry Objective Data Labs 09/08/24 06:34 09/08/24 06:37 Labs: Laboratory Results - last 24 hr 09/07/24 09/08/24 09/08/24 14:58 06:34 06:37 WBC 4.7 L RBC 2.91 L Hgb 8.0 L Hct 25.8 L MCV 88.7 MCH 27.5 MCHC 31.0 RDW 17.6 H Plt Count 207 MPV 11.1 Absolute Nucleated RBC 0.000 Nucleated RBC % (auto) 0.0 PT 28.8 H INR 2.5 H Sodium 141 Potassium 3.7 Chloride 107 Carbon Dioxide 27 Anion Gap 11 L BUN 17 H Creatinine 1.05 Estim Creat Clear Calc 87.4 Estimated GFR > 60 Random Glucose 102 Calcium 9.1 D Blood Type A Positive Antibody Screen NEGATIVE Crossmatch See Detail Procedures Date of Service Date of Service: 09/08/24 Progress Note: A&P Assessment and plan (1) GI bleed: Status: Acute Assessment and Plan: Imp: Patient has had no signs of active bleeding. Responding to transfusions with good bump in Hgb. His PT/INR is drifting down as well. Recs: Will plan for upper endo and colonoscopy for Tuesday with me or Dr. Molina as long as the OR schedule permits. Continue to follow Hgb and PT/INR. Please call if signs of active bleeding. D/W patient in detail and he is comfortable with this plan. Thanks. Time Spent With Patient Time: Total time managing care of this patient today ____ minutes. Quality Stroke Does the patient have a stroke diagnosis?: No VTE Prior VTE?: No VTE Risk Level:: Medical - moderate - high VTE Device Contraindication: N/A - Device Ordered VTE Drug Contraindication: Treatment Not Indicated
[2024-09-08] MEDS: Doxazosin Mesylate 2 MG TABLET PO (20:11)
[2024-09-08] MEDS: Atorvastatin Calcium 10 MG TABLET PO (20:11)
[2024-09-09] VITALS (11 sets, daily range): BP systolic 105–161; BP diastolic 56–85; PULSE 57–72; RESP 12–20; TEMP 36.1–36.5; O2SAT 96–98
[2024-09-09] MEDS: Pantoprazole Sodium 40 MG/10 ML VIAL IVPUSH ×2 (06:04→16:23)
[2024-09-09 06:22] LABS: MANUAL DIFF FLAG NO
[2024-09-09 06:25] LABS: Basophils Absolute Auto 0.1 X10*3/uL (0.0-0.2); Basophils Percent Auto 1.7 % (0-2); Eosinophils Absolute Auto 0.3 X10*3/uL (0.0-0.4); Hematocrit 27.4 % (42.0-52.0); Hemoglobin 8.7 g/dl (14.0-18.0); Imm Gran Abs Auto 0.02 X10*3/uL (0.00-0.03); Imm Gran Pct Auto 0.5 % (0.0-0.4); Lymphocytes Absolute Auto 0.7 X10*3/uL (1.2-4.9); Lymphocytes Percent Auto 17.7 % (20-40); Mean Corpuscular HGB Conc 31.8 g/dl (31.0-36.0); Mean Corpuscular Hemoglobin 27.9 pg (27.0-33.0); Mean Corpuscular Volume 87.8 fL (80.0-98.0); Mean Platelet Volume 11.1 fL (9.4-12.4); Monocytes Absolute Auto 0.3 X10*3/uL (0.1-1.2); Monocytes Percent Auto 8.2 % (2-11); Neutrophils Absolute Auto 2.7 x10*3/uL (2.0-8.3); Neutrophils Percent Auto 64.9 % (45-73); Platelet Count 188 X10*3/uL (160-400); Red Blood Count 3.12 X10*6/uL (4.60-5.80); Red Cell Distribution Width 16.9 % (11.0-16.0); White Blood Count 4.1 X10*3/uL (4.8-10.8)
[2024-09-09 06:32] LABS: INTERNATIONAL NORM RATIO 2.2 (0.9-1.1); Prothrombin Time 26.1 SEC (10.9-12.4)
[2024-09-09] MEDS: allopurinoL 100 MG TABLET PO (09:10)
[2024-09-09] MEDS: Cholecalciferol (Vitamin D3) 25 MCG TABLET PO (09:10)
[2024-09-09] MEDS: Calcium Oyster Shell Elemental 500 MG TABLET PO (09:10)
[2024-09-09] MEDS: 0.9 % Sodium Chloride Flush 3 ML SYRINGE IVFLUSH ×3 (09:11→16:22)
--- NOTE | 2024-09-09 11:10 | HO.PM.IMPN ---
Subjective Subjective Date of Service: 09/09/24 Interval History: f/u on GIB, acute blood loss anemia H/H is better, no active bleeding Physical Exam Vital Signs: Vital Signs: Last Vital Signs Temp 97.6 F 09/09/24 08:00 Pulse 72 09/09/24 08:00 Resp 18 09/09/24 08:00 BP 144/85 H 09/09/24 08:00 Pulse Ox 97 09/09/24 08:00 O2 Del Method Room Air 09/09/24 08:00 BMI result Body Mass Index 38.0 Const: Other: General: AO X 3, no acute distress Resp: CTA bilateral CVS: S1,S2,RRR GI: +BS, NT, no distention Skin: No rash Neuro: motor grossly intact Psych: appropriate affect Objective Data Active Medications Acetaminophen (Acetaminophen 325 Mg Tablet) 650 mg PO Q6H PRN PRN Reason: Pain, Mild (Pain Scale 1-3), fever or headache Allopurinol (Allopurinol 100 Mg Tablet) 100 mg PO DAILY [facility] Last Admin: 09/09/24 09:10 Dose: 100 mg Documented By: DEBRA Atorvastatin Calcium (Atorvastatin Calcium 10 Mg Tablet) 10 mg PO BEDTIME [facility] Last Admin: 09/08/24 20:11 Dose: 10 mg Documented By: JANET Bisacodyl (Bisacodyl 5 Mg Tablet.) 10 mg PO ONCE@1500 [facility] Stop: 09/09/24 15:01 Bisacodyl (Bisacodyl 5 Mg Tablet.) 10 mg PO ONCE@2000 [facility] Stop: 09/09/24 20:01 Calcium Carbonate (Calcium Carbonate 750 Mg Tab.Chew) 750 mg PO Q4H PRN PRN Reason: Heartburn Calcium Carbonate (Calcium Oyster Shell Elemental 500 Mg Tablet) 500 mg PO DAILY [facility] Last Admin: 09/09/24 09:10 Dose: 500 mg Documented By: DEBRA Doxazosin Mesylate (Doxazosin Mesylate 2 Mg Tablet) 2 mg PO BEDTIME [facility]; Protocol Last Admin: 09/08/24 20:11 Dose: 2 mg Documented By: JANET Ampicillin Sodium 2 gm/ Sodium (Chloride) 100 mls @ 200 mls/hr IV PREOP SHANE Stop: 09/10/24 23:00 Gentamicin Sulfate/Sodium Chloride (Garamycin) 80 mg in 100 mls @ 100 mls/hr IV PREOP [facility] Stop: 09/10/24 23:00 Magnesium Hydroxide (Milk Of Magnesia 30 Ml Oral.Susp) 30 ml PO DAILY PRN PRN Reason: Constipation Melatonin (Melatonin 3 Mg Tablet) 6 mg PO BEDTIME PRN PRN Reason: Insomnia Ondansetron HCl (Ondansetron Hcl 4 Mg/2 Ml Vial) 4 mg IVPUSH Q8H PRN PRN Reason: Nausea and Vomiting Pantoprazole Sodium (Pantoprazole Sodium 40 Mg/10 Ml Vial) 40 mg IVPUSH BID@0630,1630 [facility] Last Admin: 09/09/24 06:04 Dose: 40 mg Documented By: JANET Polyethylene Glycol/Electrolytes (Peg 3350/Na Sulf,Bicarb,Cl/Kcl 4,000 Ml Soln.Recon) 4,000 ml PO ONCE@1600 [facility] Stop: 09/09/24 16:01 Sodium Biphosphate/Sodium Phosphate (Sodium Phosphate,[place]-Dibasic 133 Ml Enema) 133 ml [place] ONCE PRN PRN Reason: Poor Colonoscopy Prep Results Sodium Chloride (0.9 % Sodium Chloride Flush 3 Ml Syringe) 3 ml IVFLUSH QSHIFT [facility] Last Admin: 09/09/24 09:11 Dose: 3 ml Documented By: DEBRA Vitamin D (Cholecalciferol (Vitamin D3) 25 Mcg Tablet) 25 mcg PO DAILY [facility] Last Admin: 09/09/24 09:10 Dose: 25 mcg Documented By: DEBRA Labs 09/09/24 05:43 09/08/24 06:37 Labs: Laboratory Results - last 24 hr 09/07/24 09/09/24 14:58 05:43 MCV 87.8 MCH 27.9 MCHC 31.8 RDW 16.9 H Plt Count 188 MPV 11.1 Immature Gran % (Auto) 0.5 H Neut % (Auto) 64.9 Lymph % (Auto) 17.7 L [place] % (Auto) 8.2 Eos % (Auto) 7.0 H Baso % (Auto) 1.7 Lymph # (Auto) 0.7 L [place] # (Auto) 0.3 Eos # (Auto) 0.3 Baso # (Auto) 0.1 Abs Immat Gran (auto) 0.02 Absolute Neuts (auto) 2.7 Absolute Nucleated RBC 0.000 Nucleated RBC % (auto) 0.0 PT 26.1 H INR 2.2 H Blood Type A Positive Antibody Screen NEGATIVE Crossmatch See Detail Assessment and Plan (1) GI bleed: Status: Acute (2) UGIB (upper gastrointestinal bleed): Status: Acute (3) Dark stools: Status: Acute Plan 69/M with pertinent history of prosthetic heart valve on Coumadin, hypertension, gout, mixed hyperlipidemia, prostate cancer status post radiation who presents to the emergency department for evaluation of black stools and profound anemia UGI bleed with acute blood loss anemia on anticoagulation -hold coumdin and aspirin -Transfusion w/ hgb goal of 10 -IV protonix -for EGD+ Colonoscopy tomorrow. Hypertension -hold meds as BP within normal Prosthetic valve -hold coumadin, no vitamin k -monitor INR, start heparin once INR < 2 Mixed hyperlipidemia: On statin DVT prophylaxis-mechanical device Full code need for inpt: w/u for GIB and anemia needing transfusion Quality Stroke Does the patient have a stroke diagnosis?: No VTE Prior VTE?: No VTE Risk Level:: Medical - moderate - high VTE Device Contraindication: N/A - Device Ordered VTE Drug Contraindication: Treatment Not Indicated
[2024-09-09] MEDS: bisacodyL 5 MG TABLET.DR 10 MG PO ×2 (15:03→20:39)
[2024-09-09] MEDS: PEG 3350/Na Sulf,Bicarb,Cl/KCL 4,000 ML SOLN.RECON 4000 ML PO (16:33)
[2024-09-09] MEDS: Doxazosin Mesylate 2 MG TABLET PO (20:40)
[2024-09-09] MEDS: Atorvastatin Calcium 10 MG TABLET PO (20:40)
[2024-09-09] MEDS: Acetaminophen 325 MG TABLET 650 MG PO (20:43)
[2024-09-10] VITALS (8 sets, daily range): BP systolic 114–159; BP diastolic 56–85; PULSE 60–89; RESP 12–20; TEMP 36.1–36.8; O2SAT 96–98
[2024-09-10] MEDS: Pantoprazole Sodium 40 MG/10 ML VIAL IVPUSH ×2 (06:27→16:29)
[2024-09-10 07:26] LABS: MANUAL DIFF FLAG NO
[2024-09-10 07:32] LABS: INTERNATIONAL NORM RATIO 1.8 (0.9-1.1); Prothrombin Time 21.2 SEC (10.9-12.4)
[2024-09-10 07:39] LABS: Basophils Absolute Auto 0.1 X10*3/uL (0.0-0.2); Basophils Percent Auto 1.6 % (0-2); Eosinophils Absolute Auto 0.3 X10*3/uL (0.0-0.4); Eosinophils Percent Auto 7.4 % (0-4); Hematocrit 30.7 % (42.0-52.0); Hemoglobin 9.8 g/dl (14.0-18.0); Imm Gran Abs Auto 0.02 X10*3/uL (0.00-0.03); Imm Gran Pct Auto 0.5 % (0.0-0.4); Lymphocytes Absolute Auto 0.7 X10*3/uL (1.2-4.9); Lymphocytes Percent Auto 18.3 % (20-40); Mean Corpuscular HGB Conc 31.9 g/dl (31.0-36.0); Mean Corpuscular Hemoglobin 28.2 pg (27.0-33.0); Mean Corpuscular Volume 88.5 fL (80.0-98.0); Mean Platelet Volume 10.7 fL (9.4-12.4); Monocytes Absolute Auto 0.4 X10*3/uL (0.1-1.2); Monocytes Percent Auto 9.8 % (2-11); Neutrophils Absolute Auto 2.3 x10*3/uL (2.0-8.3); Neutrophils Percent Auto 62.4 % (45-73); Platelet Count 187 X10*3/uL (160-400); Red Blood Count 3.47 X10*6/uL (4.60-5.80); Red Cell Distribution Width 16.2 % (11.0-16.0); White Blood Count 3.7 X10*3/uL (4.8-10.8)
[2024-09-10 07:42] LABS: Anion Gap 11 (12-20); Blood Urea Nitrogen 11 mg/dL (9-16); Calcium 8.8 mg/dL (8.4-10.2); Carbon Dioxide 24 mmol/L (22-29); Chloride 107 mmol/L (96-108); Creatinine Clr Calc Pharmacy 93.6; Estimated Glomerular Filt Rate > 60; Glucose Fasting 102 mg/dL (60-99); Potassium 3.4 mmol/L (3.3-5.1); Sodium 139 mmol/L (135-145)
[2024-09-10] MEDS: allopurinoL 100 MG TABLET PO (09:19)
[2024-09-10] MEDS: Calcium Oyster Shell Elemental 500 MG TABLET PO (09:19)
[2024-09-10] MEDS: Cholecalciferol (Vitamin D3) 25 MCG TABLET PO (09:19)
--- NOTE | 2024-09-10 13:10 | HO.PM.IMPN ---
Subjective Subjective Date of Service: 09/10/24 Interval History: f/u on GIB, acute blood loss anemia H/H is better, no active bleeding, for EGD and colonoscopy today Physical Exam Vital Signs: Vital Signs: Last Vital Signs Temp 97.0 F 09/10/24 11:31 Pulse 66 09/10/24 11:31 Resp 18 09/10/24 11:31 BP 143/85 H 09/10/24 11:31 Pulse Ox 97 09/10/24 11:31 O2 Del Method Room Air 09/10/24 11:31 BMI result Body Mass Index 38.0 General: AO X 3, no acute distress Resp: CTA bilateral CVS: S1,S2,RRR GI: +BS, NT, no distention Skin: No rash Neuro: motor grossly intact Psych: appropriate affect Objective Data Active Medications Acetaminophen (Acetaminophen 325 Mg Tablet) 650 mg PO Q6H PRN PRN Reason: Pain, Mild (Pain Scale 1-3), fever or headache Last Admin: 09/09/24 20:43 Dose: 650 mg Documented By: EMI Allopurinol (Allopurinol 100 Mg Tablet) 100 mg PO DAILY [facility] Last Admin: 09/10/24 09:19 Dose: 100 mg Documented By: MARY Atorvastatin Calcium (Atorvastatin Calcium 10 Mg Tablet) 10 mg PO BEDTIME SHANE Last Admin: 09/09/24 20:40 Dose: 10 mg Documented By: EMI Calcium Carbonate (Calcium Carbonate 750 Mg Tab.Chew) 750 mg PO Q4H PRN PRN Reason: Heartburn Calcium Carbonate (Calcium Oyster Shell Elemental 500 Mg Tablet) 500 mg PO DAILY [facility] Last Admin: 09/10/24 09:19 Dose: 500 mg Documented By: MARY Doxazosin Mesylate (Doxazosin Mesylate 2 Mg Tablet) 2 mg PO BEDTIME SHANE; Protocol Last Admin: 09/09/24 20:40 Dose: 2 mg Documented By: EMI Ampicillin Sodium 2 gm/ Sodium (Chloride) 100 mls @ 200 mls/hr IV PREOP SHANE Stop: 09/10/24 23:00 Gentamicin Sulfate/Sodium Chloride (Garamycin) 80 mg in 100 mls @ 100 mls/hr IV PREOP SHANE Stop: 09/10/24 23:00 Magnesium Hydroxide (Milk Of Magnesia 30 Ml Oral.Susp) 30 ml PO DAILY PRN PRN Reason: Constipation Melatonin (Melatonin 3 Mg Tablet) 6 mg PO BEDTIME PRN PRN Reason: Insomnia Ondansetron HCl (Ondansetron Hcl 4 Mg/2 Ml Vial) 4 mg IVPUSH Q8H PRN PRN Reason: Nausea and Vomiting Pantoprazole Sodium (Pantoprazole Sodium 40 Mg/10 Ml Vial) 40 mg IVPUSH BID@0630,1630 [facility] Last Admin: 09/10/24 06:27 Dose: 40 mg Documented By: EMI Sodium Biphosphate/Sodium Phosphate (Sodium Phosphate,[place]-Dibasic 133 Ml Enema) 133 ml [place] ONCE PRN PRN Reason: Poor Colonoscopy Prep Results Sodium Chloride (0.9 % Sodium Chloride Flush 3 Ml Syringe) 3 ml IVFLUSH QSHIFT [facility] Last Admin: 09/10/24 12:14 Dose: Not Given Documented By: MARY Non-Admin Reason: Previously Administered Vitamin D (Cholecalciferol (Vitamin D3) 25 Mcg Tablet) 25 mcg PO DAILY [facility] Last Admin: 09/10/24 09:19 Dose: 25 mcg Documented By: MARY Labs 09/10/24 07:14 09/10/24 07:14 Labs: Laboratory Results - last 24 hr 09/07/24 09/10/24 14:58 07:14 MCV 88.5 MCH 28.2 MCHC 31.9 RDW 16.2 H Plt Count 187 MPV 10.7 Immature Gran % (Auto) 0.5 H Neut % (Auto) 62.4 Lymph % (Auto) 18.3 L [place] % (Auto) 9.8 Eos % (Auto) 7.4 H Baso % (Auto) 1.6 Lymph # (Auto) 0.7 L [place] # (Auto) 0.4 Eos # (Auto) 0.3 Baso # (Auto) 0.1 Abs Immat Gran (auto) 0.02 Absolute Neuts (auto) 2.3 Absolute Nucleated RBC 0.000 Nucleated RBC % (auto) 0.0 Smear Path Review SEE NOTE PT 21.2 H INR 1.8 H Anion Gap 11 L Estim Creat Clear Calc 93.6 Estimated GFR > 60 Fasting Glucose 102 H Calcium 8.8 Crossmatch See Detail Assessment and Plan (1) GI bleed: Status: Acute (2) UGIB (upper gastrointestinal bleed): Status: Acute (3) Dark stools: Status: Acute Plan 69/M with pertinent history of prosthetic heart valve on Coumadin, hypertension, gout, mixed hyperlipidemia, prostate cancer status post radiation who presents to the emergency department for evaluation of black stools and profound anemia UGI bleed with acute blood loss anemia on anticoagulation -hold coumdin and aspirin -Transfusion w/ hgb goal of 10 (got 3 units) -IV protonix -for EGD+ Colonoscopy today Hypertension -restart Norvasc -hold lisinopril and atenololl Prosthetic valve -hold coumadin, no vitamin k -monitor INR, start heparin once INR < 2 Mixed hyperlipidemia: On statin DVT prophylaxis-mechanical device Full code need for inpt: w/u for GIB and anemia needing transfusion Quality Stroke Does the patient have a stroke diagnosis?: No VTE Prior VTE?: No VTE Risk Level:: Medical - moderate - high VTE Device Contraindication: N/A - Device Ordered VTE Drug Contraindication: Treatment Not Indicated
[2024-09-10] MEDS: amLODIPine Besylate 10 MG TABLET PO (13:34)
--- NOTE | 2024-09-10 16:03 | MHC.SHP ---
Pre-Procedural Eval Section A - 24 Hr Update-Section A only Date of Service: 09/10/24 The patient is an INPATIENT: Yes The patient has been examined within 24 hours of the surgical procedure. The History & Physical has been completed within 30 days and I have reviewed it.: Yes Section B - Complete if H&P > 30 days Chief Complaint: Dark stool Allergies: Allergies Allergy/AdvReac Type Severity Reaction Status Date / Time No Known Allergies Allergy Verified 09/07/24 14:37 Plan I have reviewed the history and physical and performed a pertinent physical examination on my patient. No changes have occurred unless specified. Time Spent With Patient Time: Total time managing care of this patient today ____ minutes.
[2024-09-10] MEDS: Ampicillin Sodium 2 GM in 0.9 % Sodium Chloride 100 ML IV (16:29)
--- NOTE | 2024-09-10 16:37 | PC.NURSE ---
report given to PACKAGE CRIMPER. Per PACKAGE CRIMPER administer amp abx while on unit prior to transport to OR
--- NOTE | 2024-09-10 16:45 | P.CONAN_ITS ---
HPI - Anesthesia Eval Consult details Narrative: For EGD and colonoscopy - b/o GI bleed PMFSH Active Problems Active Problems: All Active Problems GI bleed (Acute) UGIB (upper gastrointestinal bleed) (Acute) Dark stools (Acute) Bleeding hemorrhoids (Acute) Past Medical History Medical History (Updated 09/10/24 @ 17:00 by Alessandra Connor RN) History of radiation therapy Dark stools Bleeding hemorrhoids History of atrial fibrillation Arrhythmia On anticoagulant therapy Hx of valvular heart disease History of melanoma Hyperlipidemia HTN (hypertension) Family History Family history of problems with anesthesia: No Surgical History Surgical History History of melanoma excision History of mechanical aortic valve replacement History of nasal surgery History of back surgery Hx of colonoscopy History of Problems with Anesthesia: No Social History Social History Household Members: Spouse Housing: House Are you a primary healthcare advisory services manager to a significant other at home: No Do you presently have visiting nurse or other home services: No Patient Tobacco Use Status: Never used Tobacco service: No Meds Allergies Allergy/AdvReac Type Severity Reaction Status Date / Time No Known Allergies Allergy Verified 09/10/24 16:57 Active Medications: Current Medications Acetaminophen (Acetaminophen 325 Mg Tablet) 650 mg PO Q6H PRN PRN Reason: Pain, Mild (Pain Scale 1-3), fever or headache Last Admin: 09/09/24 20:43 Dose: 650 mg Allopurinol (Allopurinol 100 Mg Tablet) 100 mg PO DAILY [facility] Last Admin: 09/10/24 09:19 Dose: 100 mg Amlodipine Besylate (Amlodipine Besylate 10 Mg Tablet) 10 mg PO DAILY SHANE; Protocol Last Admin: 09/10/24 13:34 Dose: 10 mg Atorvastatin Calcium (Atorvastatin Calcium 10 Mg Tablet) 10 mg PO BEDTIME [facility]ANE Last Admin: 09/09/24 20:40 Dose: 10 mg Calcium Carbonate (Calcium Carbonate 750 Mg Tab.Chew) 750 mg PO Q4H PRN PRN Reason: Heartburn Calcium Carbonate (Calcium Oyster Shell Elemental 500 Mg Tablet) 500 mg PO DAILY [facility] Last Admin: 09/10/24 09:19 Dose: 500 mg Doxazosin Mesylate (Doxazosin Mesylate 2 Mg Tablet) 2 mg PO BEDTIME SHANE; Protocol Last Admin: 09/09/24 20:40 Dose: 2 mg Ampicillin Sodium 2 gm/ Sodium (Chloride) 100 mls @ 200 mls/hr IV PREOP [facility] Stop: 09/10/24 23:00 Last Admin: 09/10/24 16:29 Dose: 200 mls/hr Gentamicin Sulfate/Sodium Chloride (Garamycin) 80 mg in 100 mls @ 100 mls/hr IV PREOP [facility] Stop: 09/10/24 23:00 Magnesium Hydroxide (Milk Of Magnesia 30 Ml Oral.Susp) 30 ml PO DAILY PRN PRN Reason: Constipation Melatonin (Melatonin 3 Mg Tablet) 6 mg PO BEDTIME PRN PRN Reason: Insomnia Ondansetron HCl (Ondansetron Hcl 4 Mg/2 Ml Vial) 4 mg IVPUSH Q8H PRN PRN Reason: Nausea and Vomiting Pantoprazole Sodium (Pantoprazole Sodium 40 Mg/10 Ml Vial) 40 mg IVPUSH BID@0630,1630 [facility] Last Admin: 09/10/24 16:29 Dose: 40 mg Sodium Biphosphate/Sodium Phosphate (Sodium Phosphate,Taliaferro-Dibasic 133 Ml Enema) 133 ml MT ONCE PRN PRN Reason: Poor Colonoscopy Prep Results Sodium Chloride (0.9 % Sodium Chloride Flush 3 Ml Syringe) 3 ml IVFLUSH QSHIFT [facility] Last Admin: 09/10/24 12:14 Dose: Not Given Vitamin D (Cholecalciferol (Vitamin D3) 25 Mcg Tablet) 25 mcg PO DAILY [facility] Last Admin: 09/10/24 09:19 Dose: 25 mcg Home Medications ?Medication ?Instructions ?Recorded ?Confirmed ?Last Taken ?Type amlodipine 10 mg tablet 10 mg PO DAILY 12/23/21 09/07/24 09/07/24 08:00 History aspirin 81 mg tablet,delayed 81 mg PO BEDTIME 12/23/21 09/07/24 09/06/24 History release atorvastatin 10 mg tablet 10 mg PO BEDTIME 12/23/21 09/07/24 09/06/24 History doxazosin 2 mg tablet 2 mg PO BEDTIME 12/23/21 09/07/24 09/06/24 History hydrochlorothiazide 25 mg tablet 25 mg PO DAILY 12/23/21 09/07/24 09/07/24 08:00 History lisinopril 40 mg tablet 40 mg PO DAILY 0209/07/24 09/07/24 08:00 History warfarin 2.5 mg tablet 2.5 mg PO MOWEFR@1800 12/23/21 09/07/24 09/05/24 History allopurinol 100 mg tablet 100 mg PO DAILY 09/03/24 09/07/24 09/07/24 08:00 History atenolol 25 mg tablet 25 mg PO BID 09/03/24 09/07/24 09/07/24 08:00 History calcium carbonate 500 mg PO DAILY 09/07/24 09/07/24 09/07/24 08:00 History cholecalciferol (vitamin D3) 25 25 mcg PO DAILY 09/07/24 09/07/24 09/07/24 08:00 History mcg (1,000 unit) tablet (Vitamin D3) warfarin 2.5 mg tablet 3.75 mg PO SUTUTHSA@1800 09/07/24 09/07/24 09/06/24 History Exam Height,Weight and Vital Signs: Height 5 ft 10 in Weight 120 kg Last Vital Signs Temp 97.0 F 09/10/24 16:16 Pulse 62 09/10/24 16:16 Resp 12 09/10/24 16:16 BP 159/80 H 09/10/24 16:16 Pulse Ox 97 09/10/24 16:16 O2 Del Method Room Air 09/10/24 16:16 Pertinent Lab Results Pertinent Lab Results: Laboratory Tests 09/07/24 09/08/24 09/08/24 14:58 06:34 06:37 WBC 4.5 L 4.7 L RBC 2.45 L 2.91 L Hgb 6.8 L* 8.0 L Hct 21.9 L 25.8 L MCV 89.4 88.7 MCH 27.8 27.5 MCHC 31.1 31.0 RDW 17.4 H 17.6 H Plt Count 226 207 MPV 10.4 11.1 Immature Gran % (Auto) 0.7 H Neut % (Auto) 61.1 Lymph % (Auto) 21.2 Taliaferro % (Auto) 9.1 Eos % (Auto) 6.4 H Baso % (Auto) 1.5 Lymph # (Auto) 1.0 L Taliaferro # (Auto) 0.4 Eos # (Auto) 0.3 Baso # (Auto) 0.1 Abs Immat Gran (auto) 0.03 Absolute Neuts (auto) 2.8 Absolute Nucleated RBC 0.000 0.000 Nucleated RBC % (auto) 0.0 0.0 Smear Path Review SEE NOTE PT 28.8 H INR 2.5 H Sodium 142 141 Potassium 3.9 3.7 Chloride 107 107 Carbon Dioxide 29 27 Anion Gap 10 L 11 L BUN 18 H 17 H Creatinine 1.34 1.05 Estim Creat Clear Calc 68.7 87.4 Estimated GFR 53 > 60 Random Glucose 85 102 Fasting Glucose Calcium 9.7 9.1 D Total Bilirubin 0.6 AST 40 H ALT 48 H Alkaline Phosphatase 51 Total Protein 6.3 L Albumin 3.9 Blood Type A Positive Antibody Screen NEGATIVE Crossmatch See Detail 09/09/24 09/10/24 05:43 07:14 WBC 4.1 L 3.7 L RBC 3.12 L 3.47 L Hgb 8.7 L 9.8 L Hct 27.4 L 30.7 L MCV 87.8 88.5 MCH 27.9 28.2 MCHC 31.8 31.9 RDW 16.9 H 16.2 H Plt Count 188 187 MPV 11.1 10.7 Immature Gran % (Auto) 0.5 H 0.5 H Neut % (Auto) 64.9 62.4 Lymph % (Auto) 17.7 L 18.3 L Taliaferro % (Auto) 8.2 9.8 Eos % (Auto) 7.0 H 7.4 H Baso % (Auto) 1.7 1.6 Lymph # (Auto) 0.7 L 0.7 L Taliaferro # (Auto) 0.3 0.4 Eos # (Auto) 0.3 0.3 Baso # (Auto) 0.1 0.1 Abs Immat Gran (auto) 0.02 0.02 Absolute Neuts (auto) 2.7 2.3 Absolute Nucleated RBC 0.000 0.000 Nucleated RBC % (auto) 0.0 0.0 Smear Path Review PT 26.1 H 21.2 H INR 2.2 H 1.8 H Sodium 139 Potassium 3.4 Chloride 107 Carbon Dioxide 24 Anion Gap 11 L BUN 11 Creatinine 0.98 Estim Creat Clear Calc 93.6 Estimated GFR > 60 Random Glucose Fasting Glucose 102 H Calcium 8.8 Total Bilirubin AST ALT Alkaline Phosphatase Total Protein Albumin Blood Type Antibody Screen Crossmatch Airway TM Dist: <=3cm Neck ROM: Full Loose/Missing/Broken Teeth: No Heart: ok. s/p AVR 21 yrs ago for ?AI. On coumadin. Lungs: ok Assessment and Plan Assessment Anesthesia Assessment: Anesthesia Plan Discussed and Chart Reviewed Final Anesthetic Review Family History of Problems with Anesthesia: No History of Problems with Anesthesia: No NPO: Yes ASA Class: III Final Preanesthetic Review: No Changes in Pt Med Stat, Meds/Allgs Chart Reviewed, Consent Obtained/Reviewed and Anes Risks/Benef Reviewed Patient Risk: Intermediate Procedure Risk: Intermediate Anesthetic Plan Anesthetic Plan: Agree w/ Assess. and Plan and TIVA Disposition: Standard PACU
[2024-09-10] MEDS: Gentamicin Sulfate/NaCl 80 MG/100 ML PIGGYBACK 100 MG IV (16:49)
--- NOTE | 2024-09-10 18:40 | P.EN_ITS ---
Event Note Date of Service: 09/10/24 Event Note: GI-EGD and Colonoscopy to the cecum and TI--Full note dictated Findings: EGD-Duodenitis with edematous duodenal folds in the 2nd portion of the duodenum, mild antral gastritis, and hiatal hernia. No ulcer disease, no bleeding, no old blood. 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 There was some fresh blood and clots in the rectum but no active bleeding. Sigmoid diverticulosis-no bleeding No polyps, no cancer Rec: Start po PPI. Advance diet. Resume Coumadin but try to maintain at the low end of the therapeutic INR. F/U Hgb. Will try to treat the XRT-proctitis topically with mesalamine suppository. However, that is not on formulary so I will order a steroid preparation DE while here and then start the mesalamine DE as an outpatient. He may ultimately need ablation of the XRT proctitis endoscopically depending on his clinical course. If stable in the morning he could be discharged and I will follow up as an outpatient. D/W patient and . Thanks Time Spent With Patient Time: Total time managing care of this patient today ____ minutes.
--- NOTE | 2024-09-10 19:35 | P.BOP_ITS ---
Brief Operative Note Date of Service: 09/10/24 Pre-op diagnosis: GI Bleed Post-op diagnosis: other (Radiation-induced proctitis with telangiectasias, Duodenitis, Gastritis, Hiatal hernia) Procedure: EGD, Colonoscopy to the cecum and TI Surgeon: Chava Mera MD Anesthesia: MAC Was an Behavioral Health Worker used for this Procedure?: No Estimated blood loss (mL): 2.0 Pathology: none sent Condition: stable Disposition: PACU
[2024-09-10] MEDS: Doxazosin Mesylate 2 MG TABLET PO (19:58)
[2024-09-10] MEDS: Atorvastatin Calcium 10 MG TABLET PO (19:59)
[2024-09-10] MEDS: Warfarin Sodium 2.5 MG TABLET PO (19:59)
[2024-09-10] MEDS: Hydrocortisone 2.5 % Rectal Cr 30 GM TUBE 1 APPL PR (20:04)
[2024-09-11] VITALS (11 sets, daily range): BP systolic 113–142; BP diastolic 66–86; PULSE 54–90; RESP 16–20; TEMP 36.1–36.7; O2SAT 94–99
[2024-09-11] MEDS: 0.9 % Sodium Chloride Flush 3 ML SYRINGE IVFLUSH ×4 (00:46→20:25)
[2024-09-11] MEDS: Amoxicillin 500 MG CAPSULE 1500 MG PO (00:46)
--- NOTE | 2024-09-11 05:43 | OP_ITS ---
DATE OF SERVICE: 09/10/2024 SURGEON: Chava Mera MD INDICATIONS: The patient presents for evaluation of GI bleeding. Full consent has been obtained from him for this, including risks of bleeding and perforation. PREOPERATIVE DIAGNOSIS: Gastrointestinal bleeding. POSTOPERATIVE DIAGNOSIS: PROCEDURE PERFORMED: Esophagogastroduodenoscopy and colonoscopy to the cecum and terminal ileum. ESTIMATED BLOOD LOSS: COMPLICATIONS: ANESTHESIA: Monitored anesthesia care. ASSISTANTS: SPECIMENS: POSTOPERATIVE DIAGNOSES: Gastrointestinal bleeding, radiation-induced proctitis with associated telangiectasias, diverticulosis, duodenitis, gastritis, hiatal hernia. DESCRIPTION OF PROCEDURE: The patient was placed in the left lateral decubitus position. The Olympus video gastroscope was passed in the posterior oropharynx and upper esophagus under direct vision. The scope was passed slowly to the distal esophagus. The gastroesophageal junction appeared normal at 38 cm. There was no sign of any esophagitis nor Johnston esophagus. There was a small hiatal hernia. The scope was advanced to the pylorus and the duodenum was cannulated to the descending portion. The duodenum including the bulb was carefully inspected. The 2nd portion of the duodenum had enlarged and somewhat friable folds consistent with some duodenitis. There was no ulceration and no active bleeding. The duodenal bulb appeared normal. The scope was withdrawn back to the stomach. The gastric antrum had some mild gastritis, but no ulcerations, mass, nor bleeding. There was good peristalsis. The scope was retroflexed visualizing the proximal stomach carefully which appeared normal, without any sign of mass or ulceration. Scope was straightened. There was no blood nor coffee-grounds in the upper GI tract. The scope was withdrawn back to the esophagus. The esophageal mucosa appeared normal. Scope was withdrawn. The patient was turned around for the colonoscopy. The digital rectal exam revealed some zay blood on the examining glove. The Olympus video pediatric colonoscope was entered into the rectum advanced to the cecum with the assistance of abdominal pressure. Once in the cecum, I did identify normal-appearing cecal pouch with appendiceal orifice and a normal-appearing ileocecal valve. The terminal ileum was cannulated and appeared normal without any sign of inflammation nor any sign of blood. The scope was withdrawn back in the colon. The entire cecum appeared normal. The scope was slowly withdrawn assessing all mucosal surfaces carefully. Preparation was excellent. I did not visualize any sign of polyps, colitis, nor any signs of bleeding within the colon. There was a mild amount of sigmoid diverticulosis. However, in the very distal rectum, there was some fresh blood and blood clots, which were irrigated and suctioned away. This revealed the finding of multiple telangiectasias in the distal rectum. Once the initial blood was cleared, there was no sign of any other active bleeding, although the tissue was somewhat friable. I did not visualize any other rectal lesions. In the retroflexed position, some internal hemorrhoids were noted as well. The scope was straightened and withdrawn from the patient. He tolerated both procedures well and was returned to recovery area in stable condition. IMPRESSION: 1. 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 2. Diverticulosis. 3. Internal hemorrhoids. 4. Duodenitis. 5. Gastritis. 6. Hiatal hernia. PLAN: Given these findings, I do suspect the radiation proctitis to be the cause of his bleeding. Certainly, his chronic Coumadin would be contributing to the increased bleeding as well. I do not think the upper GI findings would be contributing to this. At this point, his diet will be advanced. He will be started on oral PPI. Since admission in the hospital, he has been stable. I would recommend trying to treat the radiation proctitis topically with a mesalamine suppository, although while in the hospital that is not formulary and will try a steroid preparation rectally. However, once he is home, I will try to get him on the mesalamine suppository. However, I did review things in detail with the patient and his , and advised him that he may ultimately need endoscopic ablation of the radiation proctitis depending on his clinical course. His chronic anticoagulation may make things more difficult in regard to the bleeding. At this point, if things are stable, he could hopefully be discharged in the morning and then we could continue to follow things as an outpatient. This has been discussed with the patient and his in detail. MD LYLE Tristan/MAYELA / [id number] IHSAN
[2024-09-11] MEDS: Omeprazole 20 MG CAPSULE.DR PO (05:50)
[2024-09-11 07:42] LABS: MANUAL DIFF FLAG NO
[2024-09-11 07:45] LABS: Eosinophils Absolute Auto 0.2 X10*3/uL (0.0-0.4); Eosinophils Percent Auto 5.5 % (0-4); Hematocrit 28.2 % (42.0-52.0); Hemoglobin 9.1 g/dl (14.0-18.0); Imm Gran Abs Auto 0.01 X10*3/uL (0.00-0.03); Imm Gran Pct Auto 0.2 % (0.0-0.4); Lymphocytes Absolute Auto 0.6 X10*3/uL (1.2-4.9); Lymphocytes Percent Auto 15.7 % (20-40); Mean Corpuscular HGB Conc 32.3 g/dl (31.0-36.0); Mean Corpuscular Hemoglobin 28.3 pg (27.0-33.0); Mean Corpuscular Volume 87.9 fL (80.0-98.0); Mean Platelet Volume 11.4 fL (9.4-12.4); Monocytes Absolute Auto 0.3 X10*3/uL (0.1-1.2); Monocytes Percent Auto 8.5 % (2-11); Neutrophils Absolute Auto 2.8 x10*3/uL (2.0-8.3); Neutrophils Percent Auto 69.1 % (45-73); Platelet Count 175 X10*3/uL (160-400); Red Blood Count 3.21 X10*6/uL (4.60-5.80); Red Cell Distribution Width 16.1 % (11.0-16.0)
[2024-09-11 07:55] LABS: INTERNATIONAL NORM RATIO 1.4 (0.9-1.1); Prothrombin Time 16.9 SEC (10.9-12.4)
[2024-09-11 08:18] LABS: Anion Gap 12 (12-20); Blood Urea Nitrogen 11 mg/dL (9-16); Calcium 9.1 mg/dL (8.4-10.2); Carbon Dioxide 25 mmol/L (22-29); Chloride 109 mmol/L (96-108); Creatinine Clr Calc Pharmacy 85.7; Estimated Glomerular Filt Rate > 60; Glucose Fasting 108 mg/dL (60-99); Potassium 3.6 mmol/L (3.3-5.1); Sodium 142 mmol/L (135-145)
--- NOTE | 2024-09-11 09:41 | HO.POSTANES ---
Post Anesthesia Evaluation Post Anesthesia Evaluation Date of Service: 09/10/24 Vital Signs: Vital Signs Temp Pulse Resp BP Pulse Ox O2 Del Method 09/11/24 08:00 98.0 F 65 16 142/80 H 94 Room Air 09/11/24 04:00 98.1 F 72 20 138/66 95 Room Air 09/11/24 00:00 97.0 F 90 20 131/73 98 Room Air Anesthesia: Monitored Mental Status: Awake Pain Control: Satisfactory Nausea/Vomiting: None Hydration: Adequate Anesthesia-Related Issues: No Anes. Related Issues
[2024-09-11] MEDS: amLODIPine Besylate 10 MG TABLET PO (09:46)
[2024-09-11] MEDS: Calcium Oyster Shell Elemental 500 MG TABLET PO (09:46)
[2024-09-11] MEDS: Cholecalciferol (Vitamin D3) 25 MCG TABLET PO (09:47)
[2024-09-11] MEDS: atenoloL 25 MG TABLET PO (09:47)
[2024-09-11] MEDS: allopurinoL 100 MG TABLET PO (09:47)
--- NOTE | 2024-09-11 17:17 | HO.PM.IMPN ---
Subjective Subjective Date of Service: 09/12/24 Interval History: gib Review of Systems has 2 episodes of some fresh blood bm no nausea or vomiting ir abd pain Physical Exam Vital Signs: Vital Signs: Last Vital Signs Temp 97.1 F 09/11/24 15:49 Pulse 64 09/11/24 15:49 Resp 16 09/11/24 15:49 BP 133/78 09/11/24 15:49 Pulse Ox 98 09/11/24 15:49 O2 Del Method Room Air 09/11/24 15:49 BMI result Body Mass Index 38.0 General: AO X 3, no acute distress Resp: CTA bilateral CVS: S1,S2,RRR GI: +BS, NT, no distention Skin: No rash Neuro: motor grossly intact Psych: appropriate affect Objective Data Active Medications Acetaminophen (Acetaminophen 325 Mg Tablet) 650 mg PO Q6H PRN PRN Reason: Pain, Mild (Pain Scale 1-3), fever or headache Last Admin: 09/09/24 20:43 Dose: 650 mg Documented By: EMI Allopurinol (Allopurinol 100 Mg Tablet) 100 mg PO DAILY [facility] Last Admin: 09/11/24 09:47 Dose: 100 mg Documented By: FRANCISCO Amlodipine Besylate (Amlodipine Besylate 10 Mg Tablet) 10 mg PO DAILY [facility]; Protocol Last Admin: 09/11/24 09:46 Dose: 10 mg Documented By: FRANCISCO Atenolol (Atenolol 25 Mg Tablet) 25 mg PO BID [facility]; Protocol Last Admin: 09/11/24 09:47 Dose: 25 mg Documented By: FRANCISCO Atorvastatin Calcium (Atorvastatin Calcium 10 Mg Tablet) 10 mg PO BEDTIME [facility] Last Admin: 09/10/24 19:59 Dose: 10 mg Documented By: MARLY Calcium Carbonate (Calcium Carbonate 750 Mg Tab.Chew) 750 mg PO Q4H PRN PRN Reason: Heartburn Calcium Carbonate (Calcium Oyster Shell Elemental 500 Mg Tablet) 500 mg PO DAILY [facility] Last Admin: 09/11/24 09:46 Dose: 500 mg Documented By: FRANCISCO Doxazosin Mesylate (Doxazosin Mesylate 2 Mg Tablet) 2 mg PO BEDTIME [facility]; Protocol Last Admin: 09/10/24 19:58 Dose: 2 mg Documented By: MARLY Hydrocortisone (Hydrocortisone 2.5 % Rectal Cr 30 Gm Tube) 1 appl MT BEDTIME [facility] Last Admin: 09/10/24 20:04 Dose: 1 appl Documented By: MARLY Magnesium Hydroxide (Milk Of Magnesia 30 Ml Oral.Susp) 30 ml PO DAILY PRN PRN Reason: Constipation Melatonin (Melatonin 3 Mg Tablet) 6 mg PO BEDTIME PRN PRN Reason: Insomnia Naloxone HCl (Naloxone Hcl 0.4 Mg/Ml Vial) 0.04 mg IVPUSH Q5M PRN PRN Reason: Excessive sedation or RR < 8 Omeprazole (Omeprazole 20 Mg Capsule.) 20 mg PO DAILY@0630 [facility] Last Admin: 09/11/24 05:50 Dose: 20 mg Documented By: JUVENTINO Ondansetron HCl (Ondansetron Hcl 4 Mg/2 Ml Vial) 4 mg IVPUSH Q8H PRN PRN Reason: Nausea and Vomiting Sodium Chloride (0.9 % Sodium Chloride Flush 3 Ml Syringe) 3 ml IVFLUSH QSHIFT [facility] Last Admin: 09/11/24 09:49 Dose: 3 ml Documented By: FRANCISCO Vitamin D (Cholecalciferol (Vitamin D3) 25 Mcg Tablet) 25 mcg PO DAILY [facility] Last Admin: 09/11/24 09:47 Dose: 25 mcg Documented By: FRANCISCO Warfarin Sodium (Warfarin Sodium 2.5 Mg Tablet) 2.5 mg PO MoWeFr@1800 [facility] Last Admin: 09/10/24 19:59 Dose: 2.5 mg Documented By: MARLY Warfarin Sodium (Warfarin Sodium 1.25 Mg Halftab) 3.75 mg PO SuTuThSa@1800 [facility] Labs 09/12/24 08:26 09/11/24 07:07 Labs: Laboratory Results - last 24 hr 09/11/24 09/11/24 07:07 16:08 MCV 87.9 MCH 28.3 MCHC 32.3 RDW 16.1 H Plt Count 175 MPV 11.4 Immature Gran % (Auto) 0.2 Neut % (Auto) 69.1 Lymph % (Auto) 15.7 L Benzie % (Auto) 8.5 Eos % (Auto) 5.5 H Baso % (Auto) 1.0 Lymph # (Auto) 0.6 L Benzie # (Auto) 0.3 Eos # (Auto) 0.2 Baso # (Auto) 0.0 Abs Immat Gran (auto) 0.01 Absolute Neuts (auto) 2.8 Absolute Nucleated RBC 0.000 Nucleated RBC % (auto) 0.0 PT 16.9 H D INR 1.4 H Anion Gap 12 Estim Creat Clear Calc 85.7 Estimated GFR > 60 Fasting Glucose 108 H Calcium 9.1 Crossmatch See Detail Assessment and Plan (1) GI bleed: Status: Acute (2) UGIB (upper gastrointestinal bleed): Status: Acute (3) Dark stools: Status: Acute Plan 69/M with pertinent history of prosthetic heart valve on Coumadin, hypertension, gout, mixed hyperlipidemia, prostate cancer status post radiation who presents to the emergency department for evaluation of black stools and profound anemia UGI bleed with acute blood loss anemia on anticoagulation -hold aspirin -Transfusion w/ hgb goal of 10 (got 3 units) -for EGD+ Colonoscopy 09/10:EGD-Duodenitis with edematous duodenal folds in the 2nd portion of the duodenum, mild antral gastritis, and hiatal hernia. No ulcer disease, no bleeding, no old blood. Colonoscopy-Telangiectasias and friability in the distal rectum c/w XRT-proctitis. There was some fresh blood and clots in the rectum but no active bleeding. Sigmoid diverticulosis-no bleeding continue IV protonix,warfarin started yesterdaywill continue h/h is 9.1 added 1 prbc since still has some intermittent bleeding Hypertension continue Norvasc,atenolol. hold lisinopril . Prosthetic valve subtherpaeutic inr started warfrain Mixed hyperlipidemia: On statin DVT prophylaxis-mechanical device Full code need for inpt: w/u for GIB and anemia needing transfusion Quality Stroke Does the patient have a stroke diagnosis?: No VTE Prior VTE?: No VTE Risk Level:: Medical - moderate - high VTE Device Contraindication: N/A - Device Ordered VTE Drug Contraindication: Treatment Not Indicated
[2024-09-11] MEDS: Warfarin Sodium 1.25 MG HALFTAB 3.75 MG PO (18:07)
[2024-09-11] MEDS: Doxazosin Mesylate 2 MG TABLET PO (20:25)
[2024-09-11] MEDS: Atorvastatin Calcium 10 MG TABLET PO (20:25)
[2024-09-11] MEDS: Hydrocortisone 2.5 % Rectal Cr 30 GM TUBE 1 APPL PR (20:26)
[2024-09-12] VITALS: BP 119/60; PULSE 60; RESP 20; TEMP 36.2; O2SAT 96
[2024-09-12 03:52] VITALS: BP 132/72; PULSE 64; RESP 20; TEMP 36.6; O2SAT 97
[2024-09-12] MEDS: Omeprazole 20 MG CAPSULE.DR PO (06:12)
[2024-09-12 06:35] LABS: INTERNATIONAL NORM RATIO 1.5 (0.9-1.1); Prothrombin Time 17.2 SEC (10.9-12.4)
[2024-09-12 07:13] VITALS: BP 136/77; PULSE 61; RESP 16; TEMP 36.2; O2SAT 95
[2024-09-12] MEDS: atenoloL 25 MG TABLET PO (08:48)
[2024-09-12] MEDS: amLODIPine Besylate 10 MG TABLET PO (08:48)
[2024-09-12] MEDS: Calcium Oyster Shell Elemental 500 MG TABLET PO (08:48)
[2024-09-12] MEDS: 0.9 % Sodium Chloride Flush 3 ML SYRINGE IVFLUSH (08:48)
[2024-09-12] MEDS: Cholecalciferol (Vitamin D3) 25 MCG TABLET PO (08:48)
[2024-09-12] MEDS: allopurinoL 100 MG TABLET PO (08:48)
[2024-09-12 09:03] LABS: Hematocrit 29.3 % (42.0-52.0); Hemoglobin 9.5 g/dl (14.0-18.0)
[2024-09-12 11:10] VITALS: BP 136/83; PULSE 56; RESP 16; TEMP 36.3; O2SAT 97
--- NOTE | 2024-09-12 12:34 | P.CDIM_ITS ---
PROVIDER RESPONSE TEXT: To clarify, the appropriate diagnosis supported by the clinical indicators: Other specified QUERY TEXT: PHYSICIAN'S DOCUMENTATION REQUEST Date of Query: 09/12/2024 07:50 AM EDT Patient Name: Noam Dawson Admit Date: 09/07/2024 Dear Jass Yarbrough MD, A review of the medical record indicates additional documentation may be needed. Please review below and update the documentation accordingly. Clinical Indicators: GI op note 09/10 - EGD/Colonoscopy The gastric antrum had some mild gastritis but no ulcerations, mass nor bleeding. Progress notes: Duodenitis with edematous duodenal fold in the 2nd portion of the duodenum, mild antr al gastritis. IV Protonix Clarify which of the following accurately represents the acuity of the Gastritis: Possible options might include: Acute Chronic Other specified Other (explain) Clinically unable to determine (explain) Thank you, Darya Dee, CCS, CDIS Use of terms such as suspected, likely, concern for, or probable (associated with a specific diagnosi s that is being evaluated, monitored, or treated as if it exists) are acceptable and can be coded in the inpatient se tting, when documented at the time of discharge. Please use your independent medical judgment in providing your response. THIS QUERY IS PART OF THE PERMANENT MEDICAL RECORD
--- NOTE | 2024-09-12 12:37 | P.CDIM_ITS ---
PROVIDER RESPONSE TEXT: To clarify, the appropriate diagnosis supported by the clinical indicators: Obesity Due to excess calories QUERY TEXT: PHYSICIAN'S DOCUMENTATION REQUEST Date of Query: 09/12/2024 07:56 AM EDT Patient Name: Noam Dawson Admit Date: 09/07/2024 Dear Jass Yarbrough MD, A review of the medical record indicates additional documentation may be needed. Please review below and update the documentation accordingly. Clinical Indicators: Height: 5ft 10in Weight: 120kg BMI: 38.0 If possible, please provide an associated diagnosis related to the abnormal BMI, such as: Overweight Obesity Due to excess calories Obesity Drug induced Obesity Due to other cause Specify the other cause Severe or Morbid Obesity With alveolar hypoventilation Severe or Morbid Obesity Without alveolar hypoventilation Other (explain) Clinically unable to determine (explain) Thank you, Darya Dee, CCS, CDIS Use of terms such as suspected, likely, concern for, or probable (associated with a specific diagnosi s that is being evaluated, monitored, or treated as if it exists) are acceptable and can be coded in the inpatient se tting, when documented at the time of discharge. Please use your independent medical judgment in providing your response. THIS QUERY IS PART OF THE PERMANENT MEDICAL RECORD
--- NOTE | 2024-09-12 12:49 | MHC.CM.PN ---
Second IMM 09/12/24, pt. has been medically cleared for DC, he will go home via private transport, plan is self care.
--- NOTE | 2024-09-12 12:54 | P.DS_ITS ---
DS: Providers Provider Date of Service: 09/12/24 Date of admission: 09/07/24 19:25 Date of discharge: 09/12/24 Primary care physician: Fer Whiting MD Consults: 09/07/24 19:32 Consult to Gastroenterology Routine Consulting Provider: Chava Mera Reason for consultation: GI bleed 09/09/24 15:17 Consult to General Surgery Routine Consulting Provider: [facility] [place] [facility] Surgeons Reason for consultation: GI Bleeding Has provider been notified: Yes Attending physician on discharge: Jass Yarbrough Discharging clinician: Jass Yarbrough DS: Diagnosis Discharge Diagnosis (1) GI bleed: Status: Acute (2) UGIB (upper gastrointestinal bleed): Status: Acute (3) Dark stools: Status: Acute DS: Summary Hospital Course Hospital Course: HPI:69-year-old male with pertinent 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 Patient states he 1st noticed bright red blood in stools in May. It was intermittent. Patient saw General surgery in June and was referred to Gastroenterology. Patient states over the last 3-4 weeks, he has noticed liquid black stools, multiple throughout the day. No abdominal pain, nausea or vomiting. No fever or chills. Patient is on Coumadin for prosthetic heart valve. No chest pain, palpitations, shortness of breath, changes in urinary habits. In the emergency department, hemoglobin found to be 6.8 and 1 unit PRBC ordered. 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 No ulcer disease, no bleeding, no old blood.Colonoscopy-Telangiectasias and friability in the distal rectum c/w XRT-proctitis. There was some fresh blood and clots in the rectum but no active bleeding. Sigmoid diverticulosis-no bleeding. discussed with Gi and cardiology -patient seems improving ,also bleeding somewhat improving , will continue home warfarin dose , moniter inr 2-3 days outpatient . h/h stable around 9.5 ,also moniter cbc outpatient he?s eating and stable, Rx for the mesalamine suppository.GI will call [facility] to get him set up for that procedure.If he has a lot more bleeding at home then he should call GI or go to [facility] ER since that?s where the procedure will need to be done. plan: continue omeprazole ,hold asa until seen by his gi. moniter cbc and inr in 2-3 days follow up with gi and cardiology outpatient. Above management discussed with the patient in detail length she understand and in agreement with the above plan, time spent 40 minutes and 50% time spent on counseling. Time Attestation Total time managing care of this patient today: 40 mintues. Discharge Coordination Time (in mins): 40 min Quality: Safe Use of Opioids Does Pt have an Active Cancer Diagnosis on the Problem List?: No Quality: Stroke Does the patient have a stroke diagnosis?: No Physical Exam Vital Signs: Vital Signs: Last Vital Signs Temp 97.3 F 09/12/24 11:10 Pulse 56 09/12/24 11:10 Resp 16 09/12/24 11:10 BP 136/83 09/12/24 11:10 Pulse Ox 97 09/12/24 11:10 O2 Del Method Room Air 09/12/24 11:10 BMI result Body Mass Index 38.0 General: AO X 3, no acute distress Resp: CTA bilateral CVS: S1,S2,RRR GI: +BS, NT, no distention Skin: No rash Neuro: motor grossly intact Psych: appropriate affect DS: Data Data Completed and Pending Labs on day of discharge: Laboratory Results - last 24 hr 09/11/24 09/12/24 09/12/24 16:08 06:02 08:26 Hgb 9.5 L Hct 29.3 L PT 17.2 H INR 1.5 H Blood Type A Positive Antibody Screen NEGATIVE Crossmatch See Detail Discharge Plan Discharge Anticipated Discharge Date/Time: 09/12/24 12:36 Patient Disposition: Home, Self-Care Discharge Diagnosis: anemia Referrals: Fer Whiting MD [Primary Care Provider] - 1 Week Discharge Medications: Continued atorvastatin 10 mg Tablet 10 mg PO BEDTIME warfarin 2.5 mg Tablet 2.5 mg PO MOWEFR@1800 amlodipine 10 mg Tablet 10 mg PO DAILY hydrochlorothiazide 25 mg Tablet 25 mg PO DAILY lisinopril 40 mg Tablet 40 mg PO DAILY doxazosin 2 mg Tablet 2 mg PO BEDTIME warfarin 2.5 mg tablet 3.75 mg PO SUTUTHSA@1800 calcium carbonate 500 mg calcium (1,250 mg) Tablet 500 mg PO DAILY cholecalciferol (vitamin D3) [Vitamin D3] 25 mcg (1,000 unit) Tablet 25 mcg PO DAILY atenolol 25 mg tablet 25 mg PO BID allopurinol 100 mg tablet 100 mg PO DAILY Held aspirin 81 mg Tablet,Delayed Release (Dr/Ec) 81 mg PO BEDTIME Hold Instructions: Resume on 09/14/24. 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 No ulcer disease, no bleeding, no old blood.Colonoscopy-Telangiectasias and friability in the distal rectum c/w XRT-proctitis. There was some fresh blood and clots in the rectum but no active bleeding. Sigmoid diverticulosis-no bleeding. discussed with Gi and cardiology -patient seems improving ,also bleeding somewhat improving , will continue home warfarin dose , moniter inr 2-3 days outpatient . h/h stable around 9.5 ,also moniter cbc outpatient he?s eating and stable, Rx for the mesalamine suppository.GI will call [facility] to get him set up for that procedure.If he has a lot more bleeding at home then he should call GI or go to [facility] ER since that?s where the procedure will need to be done. Health Concerns: as above. Plan of Treatment: as above. Assessment: as above.
== END 2024-09-12 14:38 | disposition home or self-care (01) | DRG 345 ==
LOC: HO.ED 19:17 → HO.EDOVER 19:29 → HO.IMC 21:57
PROVIDERS: Internal Medicine; Nurse Practitioner Family; Admitting Provider Student in an Organized Health Care Education/Training Program; Emergency Provider Emergency Medicine Emergency Medical Services; PCP Internal Medicine; Visit Provider Internal Medicine
PROC: 0D9P8ZZ Drainage of Rectum, Via Natural or Artificial Opening Endoscopic (ICD-10-PCS; principal; 2024-09-10 15:50)
DX: K62.7 Radiation proctitis (principal); D62 Acute posthemorrhagic anemia; K62.5 Hemorrhage of anus and rectum; K64.8 Other hemorrhoids; Y84.2 Radiological procedure and radiotherapy as the cause of abnormal reaction of the patient, or of later complication, without mention of misadventure at the time of the procedure; M10.9 Gout, unspecified; K29.80 Duodenitis without bleeding; K44.9 Diaphragmatic hernia without obstruction or gangrene; K57.30 Diverticulosis of large intestine without perforation or abscess without bleeding; K29.60 Other gastritis without bleeding; I10 Essential (primary) hypertension; E78.2 Mixed hyperlipidemia; E66.09 Other obesity due to excess calories; Z68.38 Body mass index [BMI] 38.0-38.9, adult; Z95.2 Presence of prosthetic heart valve; Z79.01 Long term (current) use of anticoagulants; Z79.82 Long term (current) use of aspirin; Z79.899 Other long term (current) drug therapy
CPT/HCPCS: 36415; 80048; 80053; 85014; 85018; 85025; 85027; 85610; 86850; 86900; 86901; 86923; 93005; 99285; J0290; J1580; J2003; J2470; J2704; P9016

== ENCOUNTER → 2024-09-07 14:37 | Outpatient (BNV) | payer MEDICARE, SELFPAY | PROVIDERS: Admitting Provider Student in an Organized Health Care Education/Training Program; Emergency Provider Emergency Medicine Emergency Medical Services; PCP Internal Medicine; Visit Provider Internal Medicine Cardiovascular Disease | DX: R42 Dizziness and giddiness (principal); I45.10 Unspecified right bundle-branch block; R94.31 Abnormal electrocardiogram [ECG] [EKG] | CPT/HCPCS: 93010 ==

== ENCOUNTER → 2024-09-07 19:25 | Outpatient (BNV) | payer MEDICARE, SELFPAY | PROVIDERS: Admitting Provider Student in an Organized Health Care Education/Training Program; Emergency Provider Emergency Medicine Emergency Medical Services; PCP Internal Medicine; Visit Provider Surgery | DX: R19.5 Other fecal abnormalities (principal) | CPT/HCPCS: 99222 ==

== ENCOUNTER → 2024-09-07 19:25 | Outpatient (BNV) | payer MEDICARE, SELFPAY | PROVIDERS: Admitting Provider Student in an Organized Health Care Education/Training Program; Emergency Provider Emergency Medicine Emergency Medical Services; PCP Internal Medicine; Visit Provider Student in an Organized Health Care Education/Training Program | DX: K92.2 Gastrointestinal hemorrhage, unspecified (principal); R19.5 Other fecal abnormalities | CPT/HCPCS: 99223; 99231; 99232; 99239 ==

== ENCOUNTER 2024-12-21 12:50 | Outpatient (REF) | payer MEDICARE, SELFPAY ==
--- OUTSIDE RECORDS SUMMARY | 2024-12-21 13:27 | XMS_ITS ---
Author Organization [facility] Address [address] [place] [address] Care Team Providers Care Senior Consulting Manager Name Role Phone Fer Whiting MD Primary Care Provider Chava Zamarripa Unavailable [phone] REASON FOR VISIT Mesalamine Suppository Rx, ? referral to [facility] GI for ablation MEDICATIONS Medication SIG (Take, Route, Fr equency, Duration) Notes Start Date End Date Status Mesalamine 1000 MG 1 suppository at bed time Rectal Once a day at bedtime for 30 day(s) 09/11/2024 Active Encounters Encounter Location Date Provider Diagnosis [facility] [address] [place] [address] 09/11/2024 Chava Mera PLAN OF TREATMENT Medication Medication Name Sig Start Date Stop Date Notes Mesalamine 1000 MG 1 suppository at bed time Rectal Once a day at bedtime for 30 day(s) 09/11/2024 Next Appt Details Provider Name:Chava Mera , 01/30/2025 02:20:00 PM, [address], [address], [place], [address],
--- OUTSIDE RECORDS SUMMARY | 2024-12-21 13:27 | XMS_ITS ---
Author Organization [facility] Address [address] [place] [address] Care Team Providers Care Senior J2Ee Developer Name Role Phone Fer Whiting MD Primary Care Provider Unavaila Chava Godoy [phone] Encounters Encounter Location Date Provider Diagnosis [facility] [address] [place] [address] 10/04/2024 Chava Mera PLAN OF TREATMENT Next Appt Details Provider Name:Chava Mera , 01/30/2025 02:20:00 PM, [address], [address], [place], [address],
--- OUTSIDE RECORDS SUMMARY | 2024-12-21 13:27 | XMS_ITS | Patient Health Record ---
Author Organization [facility] Address [address] [place] [address] Care Team Providers Care Adult Caregiver Name Role Phone Fer Whiting MD Primary Care Provider Chava Zamarripa Unavailable [phone] ALLERGIES No Known Allergies RESULTS Component Value Reference Range Notes Complete Blood Count Auto Di ff Reviewed date:09/09/2024 02:26:07 PM Interpretation: Performing Lab:[facility], [address] [place] [phone] Notes/Report: White Blood Count 4.1 4.8-10.8 X10*3/uL Red Blood Count 3.12 4.60-5.80 X10*6/uL Hemoglobin 8.7 14.0-18.0 g/dl Hematocrit 27.4 42.0-52.0 % Mean Corpuscular Volume 87.8 80.0-98.0 fL Mean Corpuscular Hemoglobin 27.9 27.0-33.0 pg Mean Corpuscular HGB Conc 31.8 31.0-36.0 g/dl Red Cell Distribution Width 16.9 11.0-16.0 % Platelet Count 188 160-400 X10*3/uL Mean Platelet Volume 11.1 9.4-12.4 fL Neutrophils Percent Auto 64.9 45-73 % Imm Gran Pct Auto 0.5 0.0-0.4 % Lymphocytes Percent Auto 17.7 20-40 % Monocytes Percent Auto 8.2 2-11 % Eosinophils Percent Auto 7.0 0-4 % Basophils Percent Auto 1.7 0-2 % NRBC Pct Auto 0.0 0.0-0.2 /100WBC Neutrophils Absolute Auto 2.7 2.0-8.3 x10*3/u L Imm Gran Abs Auto 0.02 0.00-0.03 X10*3/uL Lymphocytes Absolute Auto 0.7 1.2-4.9 X10*3/u L Monocytes Absolute Auto 0.3 0.1-1.2 X10*3/uL Eosinophils Absolute Auto 0.3 0.0-0.4 X10*3/u L Basophils Absolute Auto 0.1 0.0-0.2 X10*3/uL NRBC Abs Auto 0.000 0.0-0.012 X10*3/uL Prothrombin Time INR Reviewed date:09/09/2024 02:26:17 PM Interpretation: Performing Lab:[address] [phone] Notes/Report: Prothrombin Time 26.1 10.9-12.4 SEC INTERNATIONAL NORM RATIO 2.2 0.9-1.1 INTERNATIONAL NORMALIZED RATIO (INR) REFERENCE RANGES Reference Range For patients not on anticoagulant therapy: 0.9 - 1.1 INR ranges for oral anticoagulant therapy: For prevention and treatment of venous thrombosis and pulmonary embolism: 2.0 - 3.0 For acute myocardial infarction with aspirin therapy: 2.0 - 3.0 For acute myocardial infarction without aspirin therapy: 3.0 - 4.0 For patients with mechanical prosthetic heart valves: 2.5 - 3.5 Prothrombin Time INR Reviewed date:09/10/2024 10:41:37 PM Interpretation: Performing Lab:[facility], [address] [place] [phone] Notes/Report: Unable to obtain specimen- hard stick - [facility] 0637 Prothrombin Time 21.2 10.9-12.4 SEC INTERNATIONAL NORM RATIO 1.8 0.9-1.1 INTERNATIONAL NORMALIZED RATIO (INR) REFERENCE RANGES Reference Range For patients not on anticoagulant therapy: 0.9 - 1.1 INR ranges for oral anticoagulant therapy: For prevention and treatment of venous thrombosis and pulmonary embolism: 2.0 - 3.0 For acute myocardial infarction with aspirin therapy: 2.0 - 3.0 For acute myocardial infarction without aspirin therapy: 3.0 - 4.0 For patients with mechanical prosthetic heart valves: 2.5 - 3.5 Basic Metabolic Panel Fastin g Reviewed date:09/10/2024 10:42:18 PM Interpretation: Performing Lab:[facility], [address] [place] [phone] Notes/Report: Unable to obtain specimen- hard stick - [facility] 0637 Sodium 139 135-145 mmol/L Potassium 3.4 3.3-5.1 mmol/L Chloride 107 96-108 mmol/L Carbon Dioxide 24 22-29 mmol/L Anion Gap 11 12-20 Blood Urea Nitrogen 11 9-16 mg/dL Creatinine 0.98 0.5-1.4 mg/dL Creatinine Clr Calc Pharmacy 93.6 eGFR (calculated from the MDRD study equation) and eCrCl (calculated from the Cockcroft-Gault equation) are based on different parameters and may not yield comparable results. If eCrCl result is absurd, please check patient's height/weight. Estimated Glomerular Filt Rate > 60 NOTE: For -Togolese individuals, multiply the result by 1.210. Chronic Kidney Disease: Estimated GFR < 60 mL/min/1.73m2 Severe Kidney Disease: Estimated GFR < 15 mL/min/1.73m2 Glucose Fasting 102 60-99 mg/dL A fasting glucose from 100-125 mg/dl is considered impaired (pre-diabetes). Calcium 8.8 8.4-10.2 mg/dL Complete Blood Count Auto Di ff Reviewed date:09/11/2024 12:39:52 PM Interpretation: Performing Lab:[facility], [address] [place] [phone] Notes/Report: White Blood Count 4.0 4.8-10.8 X10*3/uL Red Blood Count 3.21 4.60-5.80 X10*6/uL Hemoglobin 9.1 14.0-18.0 g/dl Hematocrit 28.2 42.0-52.0 % Mean Corpuscular Volume 87.9 80.0-98.0 fL Mean Corpuscular Hemoglobin 28.3 27.0-33.0 pg Mean Corpuscular HGB Conc 32.3 31.0-36.0 g/dl Red Cell Distribution Width 16.1 11.0-16.0 % Platelet Count 175 160-400 X10*3/uL Mean Platelet Volume 11.4 9.4-12.4 fL Neutrophils Percent Auto 69.1 45-73 % Imm Gran Pct Auto 0.2 0.0-0.4 % Lymphocytes Percent Auto 15.7 20-40 % Monocytes Percent Auto 8.5 2-11 % Eosinophils Percent Auto 5.5 0-4 % Basophils Percent Auto 1.0 0-2 % NRBC Pct Auto 0.0 0.0-0.2 /100WBC Neutrophils Absolute Auto 2.8 2.0-8.3 x10*3/u L Imm Gran Abs Auto 0.01 0.00-0.03 X10*3/uL Lymphocytes Absolute Auto 0.6 1.2-4.9 X10*3/u L Monocytes Absolute Auto 0.3 0.1-1.2 X10*3/uL Eosinophils Absolute Auto 0.2 0.0-0.4 X10*3/u L Basophils Absolute Auto 0.0 0.0-0.2 X10*3/uL NRBC Abs Auto 0.000 0.0-0.012 X10*3/uL Prothrombin Time INR Reviewed date:09/11/2024 12:40:00 PM Interpretation: Performing Lab:[address] [phone] Notes/Report: Prothrombin Time 16.9 10.9-12.4 SEC INTERNATIONAL NORM RATIO 1.4 0.9-1.1 INTERNATIONAL NORMALIZED RATIO (INR) REFERENCE RANGES Reference Range For patients not on anticoagulant therapy: 0.9 - 1.1 INR ranges for oral anticoagulant therapy: For prevention and treatment of venous thrombosis and pulmonary embolism: 2.0 - 3.0 For acute myocardial infarction with aspirin therapy: 2.0 - 3.0 For acute myocardial infarction without aspirin therapy: 3.0 - 4.0 For patients with mechanical prosthetic heart valves: 2.5 - 3.5 Basic Metabolic Panel Fastin g Reviewed date:09/11/2024 12:40:09 PM Interpretation: Performing Lab:[address] [phone] Notes/Report: Sodium 142 135-145 mmol/L Potassium 3.6 3.3-5.1 mmol/L Chloride 109 96-108 mmol/L Carbon Dioxide 25 22-29 mmol/L Anion Gap 12 12-20 Blood Urea Nitrogen 11 9-16 mg/dL Creatinine 1.07 0.5-1.4 mg/dL Creatinine Clr Calc Pharmacy 85.7 eGFR (calculated from the MDRD study equation) and eCrCl (calculated from the Cockcroft-Gault equation) are based on different parameters and may not yield comparable results. If eCrCl result is absurd, please check patient's height/weight. Estimated Glomerular Filt Rate > 60 NOTE: For -[place]og[place] individuals, multiply the result by 1.210. Chronic Kidney Disease: Estimated GFR < 60 mL/min/1.73m2 Severe Kidney Disease: Estimated GFR < 15 mL/min/1.73m2 Glucose Fasting 108 60-99 mg/dL A fasting glucose from 100-125 mg/dl is considered impaired (pre-diabetes). Calcium 9.1 8.4-10.2 mg/dL REASON FOR REFERRAL No Information MEDICATIONS Medication SIG (Take, Route, Frequency, Duration) Notes Start Date End Date Status Doxazosin Mesylate 2 MG 1 tablet Orally Once a day Active Warfarin Sodium 2.5 MG 1 tablet Orally O nce a day Active Atorvastatin Calcium 10 MG 1 tablet Oral ly Once a day Active atenolol 50 mg 1/2 tablet Oral bid Active amLODIPine Besylate 10 MG 1 tablet Orall y Once a day Active Lisinopril 40 MG 1 tablet Orally Once a day Active Aspir-81 81 MG 1 tablet Orally Once a day Active Mesalamine 1000 MG 1 suppository at bed time Rectal Once a day at bedtime for 30 day(s) 09/11/2024 Active hydroCHLOROthiazide 25 MG 1 tablet Orall y Once a day Active IMMUNIZATIONS Vaccine Route Administration Date Status Comme nts Influenza Unknown 2021 Administered SOCIAL HISTORY Sex Assigned At : Social History Observation Description Sex Assigned At Unknown PROBLEMS Problem Type ICD Code Onset Dates Problem Status W/U Status Risk SNOMED Code Notes Problem Epigastric pain (R10.13) Active confirmed 50736120 Problem History of adenomatous polyp of colon (Z86.010) Active confirmed 107622886 Problem Encounter for screening for malignant neoplasm of colon (Z12.11) Active confirmed 292651676 Problem Encounter for screening for malignant neoplasm of rectum (Z12.12) Active confirmed Screening fo r malignant neoplasm of rectum (121546433) Problem Long-term (current) use of anticoagulants, INR goal 2.0-3.0 (Z79.01) Active confirmed 162577393 Problem Preprocedural examination (Z01.818) Active confirmed 852588946963368 Problem Esophageal dysphagia (R13.19) Active confirmed 91727991 Problem Diverticulosis of colon (K57.30) Active confirmed Diverticulosi s of colon (229004049) Problem Dysphagia (R13.10) Active confirmed Dysphagia (08057637) Problem Diverticulosis of large intestine without perforation or abscess without bleeding (K57.30) Active confirmed Diverticul ar disease of colon (583346189) Problem Duodenitis (K29.80) Active confirmed Duodenitis (98097796) Problem Chronic gastritis (K29.50) Active confirmed Chronic gastrit is (5834483) Encounters Encounter Location Date Provider Diagnosis [facility] [address] [place] [address] 09/07/2024 Chava Mera [facility] [address] [place] [address] 09/11/2024 Chava Mera [facility] [address] [place] [address] 09/20/2024 Chava Mera [facility] [address] [place] [address] 10/04/2024 Chava Mera PLAN OF TREATMENT Future Test Test Name Order Date COLONOSCOPY 02/17/2016 COLONOSCOPY 11/25/2021 UPPER GI ENDOSCOPY [place] DILATION OF ESOPH 12/23/2021 Next Appt Details Provider Name:Chava Mera , 01/30/2025 02:20:00 PM, [address], [address], [place], [address], Insurance Providers Payer Name Payer Address Payer Phone Subscriber Number Group Number Insured Name Patient Relationship to Insured Coverage Start Date Coverage End Date [facility] [address] [place] [address] [id number] LISSETTE VICKERS Self - patient is the insured MEDICAL (GENERAL) HISTORY Medical History History ICD Code Colonoscopy 03-31-2011--sever al tubular adenomas removed, 1 was > 1.5cm---had a postpolypectomy bleed that required a repeat colonoscopy and treatment of the bleeding polypectomy site from which the larger polyp was removed in the sigmoid colon Valvular heart disease--aort ic valve--his motors assembler was Dr. Michael Mane in [place]-although as of the 11/25/2021 office visit he does have to switch cardiologists due to Dr. Mane leaving [facility] Hypertension Hyperlipidemia Denies RI,DM,CVA,Lung disease,renal dise ase Melanoma in 2012 on the left shoulder Negative gallbladder ultrasound in 2009 UGI series October 2015 revealed a smal l hiatal hernia and reflux Negative colonoscopy in 06/2016 Surgical History Surgery Date(Month/Year) Back surgery in 2005 Deviated septum Knee surgery Mechanical valve replacement in 2003-aor tic valve Melanoma removal as above
--- OUTSIDE RECORDS SUMMARY | 2024-12-21 13:27 | XMS_ITS ---
Author Organization [facility] Address [address] [place] [address] Care Team Providers Care Air Lift Operator Name Role Phone Fer Whiting MD Primary Care Provider Unavaila Chava Godoy Unavailable [phone] REASON FOR VISIT rectal bleeding Encounters Encounter Location Date Provider Diagnosis [facility] [address] [place] [address] 09/20/2024 Chava Mera PLAN OF TREATMENT Next Appt Details Provider Name:Chava Mera , 01/30/2025 02:20:00 PM, [address], [address], [place], [address],
[2024-12-21 16:31] LABS: MANUAL DIFF FLAG NO
[2024-12-21 16:40] LABS: Basophils Absolute Auto 0.1 X10*3/uL (0.0-0.2); Basophils Percent Auto 1.8 % (0-2); Eosinophils Absolute Auto 0.3 X10*3/uL (0.0-0.4); Eosinophils Percent Auto 5.1 % (0-4); Hematocrit 34.6 % (42.0-52.0); Hemoglobin 10.6 g/dl (14.0-18.0); Imm Gran Abs Auto 0.01 X10*3/uL (0.00-0.03); Imm Gran Pct Auto 0.2 % (0.0-0.4); Lymphocytes Percent Auto 17.7 % (20-40); Mean Corpuscular HGB Conc 30.6 g/dl (31.0-36.0); Mean Platelet Volume 12.5 fL (9.4-12.4); Monocytes Absolute Auto 0.5 X10*3/uL (0.1-1.2); Monocytes Percent Auto 8.6 % (2-11); Neutrophils Absolute Auto 3.7 x10*3/uL (2.0-8.3); Neutrophils Percent Auto 66.6 % (45-73); Platelet Count 264 X10*3/uL (160-400); Red Blood Count 4.07 X10*6/uL (4.60-5.80); Red Cell Distribution Width 16.5 % (11.0-16.0); White Blood Count 5.5 X10*3/uL (4.8-10.8)
[2024-12-21 16:57] LABS: Alanine Aminotransferase 39 U/L (0-40); Albumin Level 4.2 g/dL (3.5-5.0); Alkaline Phosphatase 52 U/L (39-117); Anion Gap 14 (12-20); Aspartate Amino Transferase 40 U/L (5-37); Blood Urea Nitrogen 16 mg/dL (9-16); Carbon Dioxide 28 mmol/L (22-29); Chloride 103 mmol/L (96-108); Estimated Glomerular Filt Rate > 60; Glucose Random 115 mg/dL (60-115); Iron 52 mcg/dL (45-160); Percent Iron Saturation 16 % (15-50); Potassium 3.3 mmol/L (3.3-5.1); Sodium 142 mmol/L (135-145); Total Iron Binding Capacity 324 mcg/dL (228-428); Total Protein 7.2 g/dL (6.5-8.0); Unsaturated Iron Binding 272 ug/dL
[2024-12-25 03:09] LABS: Lyme Abs Screen <0.90 index
== END 2024-12-21 12:51 | disposition home or self-care (01) ==
LOC: HO.HMGCLDS 12:50
PROVIDERS: PCP Internal Medicine; Visit Provider Internal Medicine
DX: D64.9 Anemia, unspecified (principal); T14.8XXA Other injury of unspecified body region, initial encounter; I10 Essential (primary) hypertension
CPT/HCPCS: 36415; 80053; 83540; 85025; 86617; 86618

== ENCOUNTER 2025-04-18 14:27 | Outpatient (AMB) | payer MEDICARE, SELFPAY ==
--- NOTE | 2025-04-18 14:39 | A.OFFPC_ITS ---
Vital Signs 04/18/25 14:42 Height 5 ft 10 in Weight 267 lb BMI 38.3 BP 126/72 Blood Pressure Location Lt brachial Position Sitting Pulse 67 Pulse Source Pulse Oximeter Temp 97.3 F Temp Source Axillary Pulse Oximetry (%) 97 Oxygen Delivery Method Room Air Intake Visit Reasons: routine Building Manager Required: No Accompanied by: Self / Same As Patient Allergies No Known Allergies Allergy (Verified 04/18/25 14:45) Tobacco use date assessed: 04/18/25 Fall risk assessment: No Falls in past year Last assessed Fall Risk: 04/18/25 Dental Screening Dental Screen Date: 04/18/25 Did you have a dental visit in the last 12 months?: Yes Did you have a dental problem in the last 6 months where you did not have access to dental care?: No HPI HPI Comments History of Present Illness Details The patient is a 69 year old male with a past medical history of hypertension, hyperlipidemia, history of AVR, HARPER, low back pain, anemia, prostate cancer presenting for follow up. last seen for annual CV: Follows with [facility] cardiology. On coumadin. Follows with Dr Minor. History of AVR replaced by Dr Beckman Urology: Follows with Dr Kumar. Completed radiation therapy. History of GIB in Fall 2023 Follows with dermatology. History of melanoma. Follows at [facility]. ROS CONSTITUTIONAL: Denies weight loss, fever and chills. HEENT: Denies changes in vision and hearing. RESPIRATORY: Denies SOB and cough. CV: Denies palpitations and CP GI: Denies abdominal pain, nausea, vomiting and diarrhea. : Denies dysuria and urinary frequency. MSK: Denies new myalgia and joint pain. SKIN: Denies rash and pruritus. NEUROLOGICAL: Denies headache PSYCHIATRIC: Denies recent changes in mood. PHYSICAL EXAM: GENERAL: Alert and oriented x 3. NAD EYES: EOMI. Anicteric. HENT: Moist mucous membranes. No scleral icterus. No cervical lymphadenopathy. LUNGS: Clear to auscultation bilaterally. CARDIOVASCULAR: Regular rate and rhythm. No murmur. No JVD. ABDOMEN: Soft, non-tender +bs EXTREMITIES: No edema. Non-tender. SKIN: No rashes or lesions. Warm. NEUROLOGIC: No focal neurological deficits. CN II-XII grossly intact PSYCHIATRIC: Cooperative. Appropriate mood and affect [facility] Medical History History of radiation therapy Dark stools Bleeding hemorrhoids History of atrial fibrillation Arrhythmia On anticoagulant therapy Hx of valvular heart disease History of melanoma Hyperlipidemia HTN (hypertension) Surgical History History of melanoma excision History of mechanical aortic valve replacement History of nasal surgery History of back surgery Hx of colonoscopy (~09/11/24) Family History Mother No problems noted. Father No problems noted. Social History Household Members: Spouse Housing: House Are you a primary out of school hours care worker to a significant other at home: No Do you presently have visiting nurse or other home services: No Patient Tobacco Use Status: Never used Tobacco e-Cigarette/Vaping Use: Never Used service: No Current occupational status: employed Cognitive needs: No Hearing needs: No Vision needs: Yes (rx glasses) Questionnaire PHQ-9 Over the last 2 weeks, how often have you been bothered by any of the following problems? 1. Little interest or pleasure in doing things: not at all 2. Feeling down, depressed, or hopeless: not at all 3. Trouble falling or staying asleep, or sleeping too much: not at all 4. Feeling tired or having little energy: not at all 5. Poor appetite or overeating: not at all 6. Feeling bad about yourself - or that you are a failure or have let yourself or your family down: not at all 7. Trouble concentrating on things, such as reading the newspaper or watching television: not at all 8. Moving or speaking so slowly that other people could have noticed. Or the opposite - being so fidgety or restless that you have been moving around a lot more than usual: not at all 9. Thoughts that you would be better off or of hurting yourself in some way: not at all Total score: 0 Depression Screening Interpretation: Negative Depression Screening Done: Yes 04318 - PHQ-9 Billing: Yes Source: Developed by Drs. Chava Phipps, Keena ReadAbilio and colleagues, with an educational mikala from [employer]. Thrive Questionnaire Date Thrive assessed: 04/18/25 I am a: Patient Within the past 12 months, did the food you bought not last and you didn't have the money to get more?: Never true Within the past 12 months, did you worry whether your food would run out before you got money to buy more?: Never true Do you have trouble paying for medicines?: No Do you have trouble getting transportation to medical appointments?: No Do you have trouble paying your heating and electricity bill?: No Do you have trouble taking care of your child, family member or friend?: No Do you have trouble with day-to-day activities such as bathing, preparing meals, shopping, managing finances, etc.?: No Are you currently unemployed and looking for a job?: No Are you interested in more education?: No THRIVE Score: 0 AUDIT C Alcohol Use Questionnaire (AUDIT-C) 1. How often do you have a drink containing alcohol?: Monthly or less 2. How many drinks containing alcohol do you have on a typical day when you are drinking?: 1 or 2 3. How often do you have six or more drinks on one occasion?: Less than monthly Total Score: 2 JAVIER-7 AMB Questionnaire JAVIER-7 Date JAVIER - 7 assessed: 04/18/25 Feeling nervous, anxious, or on edge: 0 = Not at all Not being able to stop or control worryin = Not at all Worrying too much about different things: 0 = Not at all Trouble relaxin = Not at all Being so restless that it is hard to sit still: 0 = Not at all Becoming easily annoyed or irritable: 0 = Not at all Feeling afraid as if something awful might happen: 0 = Not at all Total JAVIER-7 score (0-4 normal; 5-9 mild; 10-14 moderate; 15-21 severe): 0 Source: Developed by Drs. Chava Phipps, Keena Read, Abilio Daniel and colleagues, with an educational mikala from [employer]. Physical exam (Primary Care) Vital Signs: Last Vital Signs Temp 97.3 F 04/18/25 14:42 Pulse 67 04/18/25 14:42 BP 126/72 04/18/25 14:42 Pulse Ox 97 04/18/25 14:42 Oxygen Delivery Method Room Air 04/18/25 14:42 BMI result Body Mass Index 38.3 Tobacco/Smoking Status: Tobacco use Status Tobacco use date assessed 04/18/25 04/18/25 14:41 Patient Tobacco Use Status Never used Tobacco 04/18/25 14:41 e-Cigarette/Vaping Use Never Used 04/18/25 14:41 PHQ-9: PHQ-9 Score PHQ-9: Total score 0 04/18/25 15:14 Depression Screening Interpretation: Negative Thrive Assessment: Date of Thrive Assessment Date Thrive assessed 04/18/25 04/18/25 14:41 Coding Level of Care Code New Pt Level 4 (94730) Complex EM visit Add On G2211 Diagnoses Hx of valvular heart disease Z86.79 Gastrointestinal hemorrhage, unspecified gastrointestinal hemorrhage type K92.2 GI bleed type/associated pathology: unspecified gastrointestinal hemorrhage type Additional Codes PHQ-9 - 45811 - PHQ-9 Billing: Yes ([id number]) Assessment & Plan Assessment & Plan (1) Hx of valvular heart disease: Comment: [facility] - [id number] Dr. Marlene Minor Code(s): Z86.79 - Personal history of other diseases of the circulatory system Category: Medical (2) GI bleed: Code(s): K92.2 - Gastrointestinal hemorrhage, unspecified Category: Medical Qualifiers: GI bleed type/associated pathology: unspecified gastrointestinal hemorrhage type Qualified Code(s): K92.2 - Gastrointestinal hemorrhage, unspecified Plan 69 yo presenting to [facility] care past medical, surgical, social reviewed History of prostate cancer, radiation, GIB REcheck CBC Orders: Orders Complete Blood Count Auto Diff Today K64.9 - Unspecified hemorrhoids, K92.2 - Gastrointestinal hemorrhage, unspecified, R19.5 - Other fecal abnormalities, Z86.79 - Personal history of other diseases of the circulatory system IRON PROFILE Today K64.9 - Unspecified hemorrhoids, K92.2 - Gastrointestinal hemorrhage, unspecified, R19.5 - Other fecal abnormalities, Z86.79 - Personal history of other diseases of the circulatory system Vitamin B12 and Folate Today K64.9 - Unspecified hemorrhoids, K92.2 - Gastrointestinal hemorrhage, unspecified, R19.5 - Other fecal abnormalities, Z86.79 - Personal history of other diseases of the circulatory system
[2025-04-18 14:42] VITALS: BP 126/72; PULSE 67; TEMP 36.3; O2SAT 97; BMI 38.3
--- OUTSIDE RECORDS SUMMARY | 2025-04-18 17:06 | XMS_ITS ---
Author Organization [facility] Address [address] [place] [address] Care Team Providers Care Wellness Manager Name Role Phone MIRLANDE RODRIGUEZ Primary Care Provider Chava Salazar [phone] Encounters Encounter Location Date Provider Diagnosis [facility] [address] [place] [address] 10/04/2024 Chava Mera Plan Of Treatment No Information Progress Notes * LISSETTE VICKERS ADOB:[birth year] (69 yo M)Acc No.[id number]:10/04/2024 Patient:?LISSETTE VICKERS :1955???Age:69 Y???Sex:Male Address:[address] [place] [id number] * true * Date:? Generated for Sharifa dickerson/Ang/eTransmitting on:?04/18/2025 05:06 PM EDT
== END 2025-04-18 15:25 | disposition home or self-care (01) ==
LOC: HO.HMCHD 14:27
PROVIDERS: PCP Internal Medicine; Visit Provider Internal Medicine
DX: Z86.79 Personal history of other diseases of the circulatory system (principal); K92.2 Gastrointestinal hemorrhage, unspecified

== ENCOUNTER → 2025-04-18 14:27 | Outpatient (BNVA) | payer MEDICARE, SELFPAY | PROVIDERS: PCP Internal Medicine; Visit Provider Internal Medicine | DX: I10 Essential (primary) hypertension (principal); E78.5 Hyperlipidemia, unspecified; G47.33 Obstructive sleep apnea (adult) (pediatric); M54.50 Low back pain, unspecified; D64.9 Anemia, unspecified; C61 Malignant neoplasm of prostate; K92.2 Gastrointestinal hemorrhage, unspecified; R19.5 Other fecal abnormalities; Z86.79 Personal history of other diseases of the circulatory system; Z95.2 Presence of prosthetic heart valve | CPT/HCPCS: 96127; 99202 ==

== ENCOUNTER 2025-09-30 10:48 | Outpatient (REF) | payer MEDICARE, SELFPAY ==
[2025-09-30 13:06] LABS: MANUAL DIFF FLAG NO
[2025-09-30 13:35] LABS: Hematocrit 38.1 % (42.0-52.0); Hemoglobin 11.8 g/dl (14.0-18.0); Imm Gran Abs Auto 0.01 X10*3/uL (0.00-0.03); Imm Gran Pct Auto 0.2 % (0.0-0.4); Lymphocytes Absolute Auto 1.2 X10*3/uL (1.2-4.9); Mean Corpuscular HGB Conc 31.0 g/dl (31.0-36.0); Mean Corpuscular Hemoglobin 28.2 pg (27.0-33.0); Mean Corpuscular Volume 90.9 fL (80.0-98.0); NRBC Abs Auto 0.000 X10*3/uL (0.0-0.012); NRBC Pct Auto 0.0 /100WBC (0.0-0.2); Platelet Count 233 X10*3/uL (160-400); Red Blood Count 4.19 X10*6/uL (4.60-5.80); White Blood Count 5.3 X10*3/uL (4.8-10.8)
[2025-09-30 14:24] LABS: Folate 8.3 ng/mL (> or = 4.0); Vitamin B12 385 pg/mL (200-900)
[2025-09-30 14:29] LABS: Iron 53 mcg/dL (45-160); Percent Iron Saturation 17 % (15-50); Total Iron Binding Capacity 318 mcg/dL (228-428); Unsaturated Iron Binding 265 ug/dL
== END 2025-09-30 10:49 | disposition home or self-care (01) ==
LOC: HO.HMGCLDS 10:48
PROVIDERS: PCP Internal Medicine; Visit Provider Internal Medicine
DX: K92.2 Gastrointestinal hemorrhage, unspecified (principal); R19.5 Other fecal abnormalities; K64.9 Unspecified hemorrhoids; Z86.79 Personal history of other diseases of the circulatory system
CPT/HCPCS: 36415; 82607; 82746; 83540; 85025

== ENCOUNTER 2025-10-17 15:30 | Outpatient (AMB) | payer MEDICARE, SELFPAY ==
--- NOTE | 2025-10-17 15:27 | MHC.PC.OV ---
Vital Signs 10/17/25 15:36 Height 5 ft 8 in Weight 261 lb BMI 39.7 BP 112/68 Blood Pressure Location Lt brachial Position Sitting Respiration 18 Pulse 60 Pulse Source Pulse Oximeter Temp 96.9 F Temp Source Temporal Artery Scan Pulse Oximetry (%) 96 Oxygen Delivery Method Room Air Intake Visit Reasons: Annual Party Director Required: No Accompanied by: Spouse Allergies No Known Allergies Allergy (Verified 10/17/25 15:27) Medication List - Last Reconciled 10/17/25 by Shahid Duran MD allopurinol 100 mg PO DAILY amlodipine 10 mg PO DAILY aspirin 81 mg PO BEDTIME Held on 09/12/24. Instructions: Resume on 09/14/24. atenolol 25 mg PO BID atorvastatin 10 mg PO BEDTIME 90 days calcium carbonate 500 mg PO DAILY cholecalciferol (vitamin D3) (Vitamin D3) 25 mcg PO DAILY doxazosin 2 mg PO BEDTIME hydrochlorothiazide 25 mg PO DAILY lisinopril 40 mg PO DAILY 90 days warfarin 2.5 mg PO MOWEFR@1800 Tobacco use date assessed: 04/18/25 Fall risk assessment: No Falls in past year Last assessed Fall Risk: 10/17/25 Dental Screening Dental Screen Date: 04/18/25 HPI HPI Comments History of Present Illness Details History of Present Illness The patient is a 70-year-old male presenting for an annual physical, management of chronic conditions, and evaluation of left shoulder pain. He reports recent onset of pain in his left shoulder after leaping over a railing. The pain is nagging, occurs when he is lying down in bed, and is exacerbated when he leans on it. He notes the sensation is similar to a muscle pull from when he used to play baseball. He also reports general aches and pains in his knees and lower back. The patient's past medical history is significant for a bicuspid aortic valve, atrial fibrillation, hypertension, hyperlipidemia, and gout. He has a history of prostate cancer and is currently being monitored by urology every six months with PSA and testosterone levels. He also has a history of an aortic aneurysm discovered during a DOT exam, which was subsequently repaired surgically. He reports a past episode of syncope in the hospital prior to a colonoscopy procedure. The patient denies any history of smoking. He reports occasional alcohol use. His colonoscopy is not due until 2028. Medical History: - Bicuspid aortic valve. - Atrial fibrillation. - Hypertension. - Hyperlipidemia. - Gout. - Prostate cancer, under surveillance. - History of aortic aneurysm. - History of syncope prior to a colonoscopy. Surgical History: - Aortic aneurysm repair Medications: - Allopurinol 100 mg for gout - Amlodipine 10 mg for hypertension - Aspirin for heart disease - Atenolol 25 mg twice a day for atrial fibrillation control - Atorvastatin 10 mg for hyperlipidemia - Doxazosin 2 mg, likely for hypertension - Hydrochlorothiazide 25 mg for hypertension - Lisinopril 40 mg for hypertension - Warfarin 2.5 mg every Tuesday, Tuesday, and Tuesday Social History - Tobacco Use: Patient denies ever smoking. - Alcohol Use: Reports occasional use, but is not a regular drinker. - Past Occupation: Previously worked for the [employer], a job that involved heavy lifting and physical activity. Health Maintenance - Influenza vaccination administered during the visit. - Colorectal cancer screening: Patient's next colonoscopy is not due until 2028. - Will order a Cologuard test for interval screening. - Annual labs ordered, including counts, electrolytes, hepatitis panel, HIV, syphilis, and vitamin D. - A urinalysis was also ordered. - Prostate cancer screening: Patient continues surveillance with urology every 6 months. - Weight management: Patient advised on the need for weight loss. Patient was informed and verbally consented to the use of an ambient scribe for clinic note documentation during this visit. Vital signs reviewed. Comprehensive history, review of systems, and physical exam completed. Medications, allergies, and problem list reviewed and updated. Counseling provided on nutrition, regular exercise, sleep hygiene, and moderation of alcohol use. Discussed age-appropriate screenings (mammogram, colonoscopy, Pap, bone density) and immunizations (flu, COVID, shingles, Tdap). Screened for depression, fall risk, and home safety; no current concerns. Discussed stress management, dental and vision care, and importance of ongoing preventive follow-up. Routine labs ordered for metabolic and lipid screening. Patient educated on healthy lifestyle and agrees with the plan. [facility] Medical History (Updated 10/17/25 @ 16:01 by Shahid Duran MD) Annual physical exam Swelling of lower extremity Left shoulder pain Malignant neoplasm of prostate Gout Mixed hyperlipidemia Hypertension, essential, benign Permanent atrial fibrillation Bicuspid aortic valve History of radiation therapy Dark stools Bleeding hemorrhoids History of atrial fibrillation Arrhythmia On anticoagulant therapy Hx of valvular heart disease History of melanoma Hyperlipidemia HTN (hypertension) Surgical History History of melanoma excision History of mechanical aortic valve replacement History of nasal surgery History of back surgery Hx of colonoscopy (~09/11/24) Family History Mother No problems noted. Father No problems noted. Social History Household Members: Spouse Housing: House Are you a primary healthcare account manager to a significant other at home: No Do you presently have visiting nurse or other home services: No Patient Tobacco Use Status: Never used Tobacco e-Cigarette/Vaping Use: Never Used service: No Current occupational status: employed Cognitive needs: No Hearing needs: No Vision needs: Yes (rx glasses) Questionnaire Thrive Questionnaire Date Thrive assessed: 04/18/25 JAVIER-7 AMB Questionnaire JAVIER-7 Date JAVIER - 7 assessed: 04/18/25 Source: Developed by Drs. Chava Phipps, Keena Read, Abilio Daniel and colleagues, with an educational mikala from [employer]. Review of Systems Narrative Review of Systems - General: Reports feeling good overall. - Musculoskeletal: Reports a nagging pain and tightness in his left shoulder, primarily when lying down or with pressure. - Also reports occasional aches in his knees and lower back. - Lower Extremities: Reports his ankles look fine in the morning but acknowledges swelling can occur. All systems reviewed & are unremarkable except as reviewed in HPI and above Physical exam (Primary Care) Vital Signs: Last Vital Signs Temp 96.9 F 10/17/25 15:36 Pulse 60 10/17/25 15:36 Resp 18 10/17/25 15:36 BP 112/68 10/17/25 15:36 Pulse Ox 96 10/17/25 15:36 Oxygen Delivery Method Room Air 10/17/25 15:36 BMI result Body Mass Index 39.7 Tobacco/Smoking Status: Tobacco use Status Tobacco use date assessed 04/18/25 10/17/25 15:28 Patient Tobacco Use Status Never used Tobacco 10/17/25 15:28 e-Cigarette/Vaping Use Never Used 10/17/25 15:28 Thrive Assessment: Date of Thrive Assessment Date Thrive assessed 04/18/25 10/17/25 15:28 Narrative Physical Exam General: +Alert and oriented, Well nourished, No acute distress. Eye: Pupils are equal, round and reactive to light, Intact accommodation, Extraocular movements are intact, Normal conjunctiva, Vision unchanged. HENT: Normocephalic, Atraumatic, Tympanic membranes are clear, Normal hearing, Oral mucosa is moist, No pharyngeal erythema, Ear canals patent. Respiratory: Lungs CTA bilaterally, No wheeze, Respirations are non-labored. Cardiovascular: Regular rate, Regular rhythm, S1 auscultated, S2 auscultated, No murmur, Good pulses equal in all extremities, Normal peripheral perfusion, No edema. Gastrointestinal: Soft, Non-tender, Non-distended, Normal bowel sounds, No organomegaly. Musculoskeletal: Normal range of motion, Normal strength, No tenderness, No swelling, No deformity, Normal gait. Integumentary: Warm, Dry, [place], Intact. Neurologic: Alert, Oriented, Normal sensory, Normal motor function, No focal defects, Cranial Nerves II-XII are grossly intact, Normal deep tendon reflexes. Psychiatric: Cooperative, Appropriate mood & affect, Normal judgment. Office Procedures Flu Questionnaire Does the patient have a severe egg allergy?: No Does the patient have severe life threatening allergies?: No Does the patient have a fever or illness today?: No Has the patient ever had Guillain-[place] Syndrome?: No Has the patient ever had any past reaction to a flu shot?: No Immunizations Fluzone High-Dose (PF) 180 mcg/0.5 mL intramuscular syringe Performing Provider: Shahid Duran MD Performing Location: [facility] Administered by: Shahid Duran MD on 10/17/25 15:54 Dose Route Admin Location Dispensed Lot Number Expiration Date [facility] [employer] 0.5 mL IM Right Deltoid 0.5 mL [id number] 04/14/26 49736-620-60 [employer] Total Dispensed Waste 0.5 mL 0 % VIS Given Date VIS Provided VIS Publication Date 10/17/25 Single Vaccine 24 Eligibility Eligibility Date Funding Source Not [facility] Eligible 10/17/25 Private Coding Level of Care Code Est Pt Level 4 (30563) Est Pt Prev Care >65y(12227) Diagnoses Bicuspid aortic valve Q23.81 Permanent atrial fibrillation I48.21 Hypertension, essential, benign I10 Mixed hyperlipidemia E78.2 Chronic gout without tophus, unspecified cause, unspecified site M1A.9XX0 Chronicity: chronic Gout etiology: unspecified cause Gout site: unspecified site Presence of tophus: without tophus Malignant neoplasm of prostate C61 Acute pain of left shoulder M25.512 Chronicity: acute Swelling of lower extremity M79.89 Annual physical exam Z00.00 Comment 21427-62 Assessment & Plan Assessment & Plan (1) Bicuspid aortic valve: Comment: Currently follows with [facility] anticoagulation clinic and on warfarin 2.5 Tuesday Plans to transfer over to [facility] later time Code(s): Q23.81 - Bicuspid aortic valve Category: Medical (2) Permanent atrial fibrillation: Comment: Stable and managed on atenolol 25 mg b.i.d. and warfarin for anticoagulation Code(s): I48.21 - Permanent atrial fibrillation Category: Medical (3) Hypertension, essential, benign: Comment: Pressure is well controlled on lisinopril 40, hydrochlorothiazide 25 and amlodipine 10 mg daily with pressures in clinic today at 112/68 Code(s): I10 - Essential (primary) hypertension Category: Medical (4) Mixed hyperlipidemia: Comment: Stable on atorvastatin 10 per prior labs however repeat ordered today Code(s): E78.2 - Mixed hyperlipidemia Category: Medical (5) Gout: Comment: Well managed on allopurinol 100 without any flares Code(s): M10.9 - Gout, unspecified Category: Medical Qualifiers: Chronicity: chronic Gout etiology: unspecified cause Gout site: unspecified site Presence of tophus: without tophus Qualified Code(s): M1A.9XX0 - Chronic gout, unspecified, without tophus (tophi) (6) Malignant neoplasm of prostate: Comment: - The plan is to continue surveillance with urology every six months. Code(s): C61 - Malignant neoplasm of prostate Category: Medical (7) Left shoulder pain: Comment: - The pain is assessed as likely tendinitis or a muscle pull from a recent minor trauma. - Given that the symptoms are not significantly bothersome, the plan is for observation without imaging at this time. Code(s): M25.512 - Pain in left shoulder Category: Medical Qualifiers: Chronicity: acute Qualified Code(s): M25.512 - Pain in left shoulder (8) Swelling of lower extremity: Comment: - The swelling is likely related to age and prolonged standing. - The plan is to manage with leg elevation and compression stockings. Code(s): M79.89 - Other specified soft tissue disorders Category: Medical (9) Annual physical exam: Comment: - An annual physical was completed. - An order will be placed for annual blood work, including counts, electrolytes, hepatitis screening, HIV, syphilis, and vitamin D, as well as a urinalysis. - A Cologuard test will be ordered for interval colorectal cancer screening. - An influenza vaccine was administered. Code(s): Z00.00 - Encounter for general adult medical examination without abnormal findings Category: Medical Plan: Health Maintenance: - Influenza vaccination administered during the visit. - Colorectal cancer screening: Patient's next colonoscopy is not due until 2028. - Will order a Cologuard test for interval screening. - Annual labs ordered, including counts, electrolytes, hepatitis panel, HIV, syphilis, and vitamin D. - A urinalysis was also ordered. - Prostate cancer screening: Patient continues surveillance with urology every 6 months. - Weight management: Patient advised on the need for weight loss. Patient was informed and verbally consented to the use of an ambient scribe for clinic note documentation during this visit. Vital signs reviewed. Comprehensive history, review of systems, and physical exam completed. Medications, allergies, and problem list reviewed and updated. Counseling provided on nutrition, regular exercise, sleep hygiene, and moderation of alcohol use. Discussed age-appropriate screenings (mammogram, colonoscopy, Pap, bone density) and immunizations (flu, COVID, shingles, Tdap). Screened for depression, fall risk, and home safety; no current concerns. Discussed stress management, dental and vision care, and importance of ongoing preventive follow-up. Routine labs ordered for metabolic and lipid screening. Patient educated on healthy lifestyle and agrees with the plan. Plan I have reviewed the patient's comprehensive medical history and current medications. We discussed his new left shoulder pain, which I believe is likely tendinitis from a minor injury; I explained that since it is not very bothersome, we can simply monitor it for now. I noted that his chronic conditions are well-managed and his blood pressure is excellent. I explained the plan for annual screening labs and a Cologuard test, which serves as an interim screening measure for colon cancer before his next scheduled colonoscopy. I have also advised him on using compression stockings for his leg swelling and reinforced the importance of weight loss. The patient will continue with his current treatment regimen and is scheduled to follow up with me in six months. Orders: Orders Complete Blood Count Auto Diff Today Z00.00 - Encounter for general adult medical examination without abnormal findings Comprehensive Met. Panel Today Z00.00 - Encounter for general adult medical examination without abnormal findings HIV Ab/Ag Today Z00.00 - Encounter for general adult medical examination without abnormal findings Lipid Panel Today Z00.00 - Encounter for general adult medical examination without abnormal findings Influenza [id number] High Dose Immunization Today Z23 - Encounter for immunization Hemoglobin A1c Today Z00.00 - Encounter for general adult medical examination without abnormal findings Hepatitis A,B,C Profile Today Z00.00 - Encounter for general adult medical examination without abnormal findings Microalbumin, Random (w Creat) Today Z00.00 - Encounter for general adult medical examination without abnormal findings Syphilis Screen Today Z00.00 - Encounter for general adult medical examination without abnormal findings TSH reflex Free T4 Today Z00.00 - Encounter for general adult medical examination without abnormal findings Vitamin D 25-OH Total Today Z00.00 - Encounter for general adult medical examination without abnormal findings Referrals Cologuard Test Z12.11 - Encounter for screening for malignant neoplasm of colon Patient Instructions: - Your left shoulder pain is likely a minor muscle pull. - We will monitor it for now. - For the swelling in your legs, elevate them when you can and try wearing compression stockings. - Continue taking all your current medications as prescribed for your blood pressure, cholesterol, gout, and heart conditions. - Continue to follow up with the [facility] for management of your warfarin. - Continue your six-month follow-up appointments with your urologist for prostate cancer monitoring. - Please go to the lab to have your blood drawn for the tests we ordered. - You will receive a Cologuard kit in the mail. - Follow the directions to collect a sample and mail it back. - Please work on losing weight. - Please schedule a follow-up appointment to see me in six months.
[2025-10-17 15:36] VITALS: BP 112/68; PULSE 60; RESP 18; TEMP 36.1; O2SAT 96; BMI 39.7
--- OUTSIDE RECORDS SUMMARY | 2025-10-17 21:38 | XMS_ITS | Patient Health Record ---
Author Organization [facility] Address [address] [place] [address] Care Team Providers Care Vice Admiral Name Role Phone MICHAEL MIRLANDE Primary Care Provider Chava Salazar Unavailable [phone] Allergies No Known Allergies Reason For Referral No Information Medications Medication SIG (Take, Route, Frequency, Duration) Notes Start Date End Date Status Doxazosin Mesylate 2 MG Tablet 1 tablet Orally Once a day Active Warfarin Sodium 2.5 MG Tablet 1 tablet Orally Once a day Active amLODIPine Besylate 10 MG Tablet 1 tablet Orally Once a day Active Lisinopril 40 MG Tablet 1 tablet Orally Once a day Active Atorvastatin Calcium 10 MG Tablet 1 tablet Orally Once a day Active atenolol 50 mg tablet 1/2 tablet Oral bid Active hydroCHLOROthiazide 25 MG Tablet 1 tablet Orally Once a day Active Aspir-81 81 MG Tablet Delayed Release 1 tablet Orally Once a day Active Mesalamine 1000 MG Suppository 1 suppository at bedtime Rectal Once a day at bedtime; Duration: 30 day(s) as needed 09/11/2024 Active Immunizations Vaccine Route Administration Date Status Comme nts Influenza Unknown 2021 Administered Influenza Unknown 09/04/2024 Administered Social History Social History Additional Details Category Social Info Options Details Miscellaneous: Marital status: 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: [employer]-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; 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 Section Notes: Nonsmoker; no sig alcohol Nonsmoker; no sig alcohol Nonsmoker; no sig alcohol Problems Problem Type SNOMED Code ICD Code Onset Dates Problem Status W/U Status Risk Notes Problem Epigastric pain (56552829) Epigastric pain (R10.13) Active confirmed Problem Screening for malignant neoplasm of colon (341968331) Encounter for screening for malignant neoplasm of colon (Z12.11) Active confirmed Problem History of adenomatous polyp of colon (573040683) History of adenomatous polyp of colon (Z86.010) Active confirmed Problem Diverticular disease of colon (924585815) Diverticulosis of large intestine without perforation or abscess without bleeding (K57.30) Active confirmed Problem Screening for malignant neoplasm of rectum (633053670) Encounter for screening for malignant neoplasm of rectum (Z12.12) Active confirmed Problem Dysphagia (20011282) Dysphagia (R13.10) Active confirmed Problem Duodenitis (13888552) Duodenitis (K29.80) Active confirmed Problem Preprocedural examination (906671064979015) Preprocedural examination (Z01.818) Active confirmed Problem Chronic gastritis (1675236) Chronic gastritis (K29.50) Active confirmed Problem Diverticulosis of colon (465353900) Diverticulosis of colon (K57.30) Active confirmed Problem Long-term current use of anticoagulant (593173168) Long-term (current) use of anticoagulants, INR goal 2.0-3.0 (Z79.01) Active confirmed Problem Esophageal dysphagia (72464936) Esophageal dysphagia (R13.19) Active confirmed Vital Signs Temperature 96.8 degrees Fahrenheit 01/30/2025 Blood pressure diastolic 01 mm Hg 01/30/2025 Height 69 in 01/30/2025 Blood pressure systolic 001 mm Hg 01/30/2025 Weight 255 lbs 01/30/2025 BMI 37.65 kg/m2 01/30/2025 Encounters Encounter Location Date Provider Diagnosis [facility] [address] [place] [phone] 01/30/2025 Chava Mera Radiation proctitis K62.7 ; History of adenomatous polyp of colon Z86.010 and Encounter for screening for malignant neoplasm of colon Z12.11 [facility] [address] [place] [phone] 01/30/2025 Chava Mera Assessments Encounter Date Diagnosis (ICD Code) Assessment Notes Treatment Notes Treatment Clinical Notes Section Notes 01/30/2025 Radiation proctitis (ICD-10 - K62.7) Overall, Lissette appears quite well and has had a very good response to the 1 treatment session for the radiation proctitis back in September. He is presently doing quite well and is not having any active or worrisome GI complaints. He has had no signs of recurrent bleeding. As such, I do not think he needs any particular intervention on my part at this time. We did review his otherwise negative colonoscopy in August and I would therefore recommend a follow-up colonoscopy for further screening in 2028 given his previous history of tubular adenomas. In regard to his anemia I did recommend perhaps starting at least a multivitamin with iron or an iron supplement even though his iron studies look fairly normal to see if that can bring up the blood count somewhat. I did advise him that he could follow-up with you in this regard and have periodic CBCs to be sure things are remaining stable and hopefully improving. At this point if things remain well I advised him to see me again on a as needed basis. I did advise Lissette to contact me if he has any recurrent bleeding, in which case I would plan to make another referral down to [facility] for him to undergo another sigmoidoscopy with ablation of the radiation proctitis. Lissette was comfortable with this plan. Thank you again for allowing me to participate in Lissette's care. I shall continue to keep you advised of his progress as needed. Please do not hesitate to contact me if I can be of any further assistance in the future. 01/30/2025 History of adenomatous polyp of colon (ICD-10 - Z86.010) Repeat colonoscopy in 08/2029 Overall, Lissette appears quite well and has had a very good response to the 1 treatment session for the radiation proctitis back in September. He is presently doing quite well and is not having any active or worrisome GI complaints. He has had no signs of recurrent bleeding. As such, I do not think he needs any particular intervention on my part at this time. We did review his otherwise negative colonoscopy in August and I would therefore recommend a follow-up colonoscopy for further screening in 2028 given his previous history of tubular adenomas. In regard to his anemia I did recommend perhaps starting at least a multivitamin with iron or an iron supplement even though his iron studies look fairly normal to see if that can bring up the blood count somewhat. I did advise him that he could follow-up with you in this regard and have periodic CBCs to be sure things are remaining stable and hopefully improving. At this point if things remain well I advised him to see me again on a as needed basis. I did advise Lissette to contact me if he has any recurrent bleeding, in which case I would plan to make another referral down to [facility] for him to undergo another sigmoidoscopy with ablation of the radiation proctitis. Lissette was comfortable with this plan. Thank you again for allowing me to participate in Lissette's care. I shall continue to keep you advised of his progress as needed. Please do not hesitate to contact me if I can be of any further assistance in the future. 01/30/2025 Encounter for screening for malignant neoplasm of colon (ICD-10 - Z12.11) Overall, Lissette appears quite well and has had a very good response to the 1 treatment session for the radiation proctitis back in September. He is presently doing quite well and is not having any active or worrisome GI complaints. He has had no signs of recurrent bleeding. As such, I do not think he needs any particular intervention on my part at this time. We did review his otherwise negative colonoscopy in August and I would therefore recommend a follow-up colonoscopy for further screening in 2028 given his previous history of tubular adenomas. In regard to his anemia I did recommend perhaps starting at least a multivitamin with iron or an iron supplement even though his iron studies look fairly normal to see if that can bring up the blood count somewhat. I did advise him that he could follow-up with you in this regard and have periodic CBCs to be sure things are remaining stable and hopefully improving. At this point if things remain well I advised him to see me again on a as needed basis. I did advise Lissette to contact me if he has any recurrent bleeding, in which case I would plan to make another referral down to [facility] for him to undergo another sigmoidoscopy with ablation of the radiation proctitis. Lissette was comfortable with this plan. Thank you again for allowing me to participate in Lissette's care. I shall continue to keep you advised of his progress as needed. Please do not hesitate to contact me if I can be of any further assistance in the future. Plan Of Treatment Future Test Test Name Order Date COLONOSCOPY 02/17/2016 COLONOSCOPY 11/25/2021 UPPER GI ENDOSCOPY [facility] 12/23/2021 Insurance Providers Payer Name Payer Address Payer Phone Subscriber Number Group Number Insured Name Patient Relationship to Insured Coverage Start Date Coverage End Date [facility] [address] [address] [place] [address] [id number] LISSETTE DAWSON Self - patient is the insured Medical (General) History Medical History History ICD Code Colonoscopy 03-31-2011--sever al tubular adenomas removed, 1 was > 1.5cm---had a postpolypectomy bleed that required a repeat colonoscopy and treatment of the bleeding polypectomy site from which the larger polyp was removed in the sigmoid colon Valvular heart disease--aort ic valve--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 Michael Mane in [place]-although as of the 11/25/2021 office visit he does have to switch cardiologists due to Dr. Mane leaving [facility] Hypertension Hyperlipidemia Denies ME,DM,CVA,Lung disease,renal dise ase Melanoma in 2012 on the left shoulder Negative gallbladder ultrasound in 2009 UGI series October 2015 revealed a smal l hiatal hernia and reflux Negative colonoscopy in 06/2016 Hospitalization in August for GI bleeding. He underwent an upper endoscopy which was nonrevealing but a colonoscopy revealed radiation proctitis with associated telangiectasias and bleeding. He required several units of blood. 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 He underwent a sigmoidoscopy at [facility] on September 28, [address] Sanchez with radioablation and APC treatment of the radiation proctitis with good success and without any further bleeding. 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
== END 2025-10-17 16:01 | disposition home or self-care (01) ==
LOC: HO.HMCHD 15:31
PROVIDERS: PCP Student in an Organized Health Care Education/Training Program; Visit Provider Student in an Organized Health Care Education/Training Program
DX: Z00.00 Encounter for general adult medical examination without abnormal findings (principal); I48.21 Permanent atrial fibrillation; C61 Malignant neoplasm of prostate; Q23.81 Bicuspid aortic valve; E78.2 Mixed hyperlipidemia; I10 Essential (primary) hypertension; M1A.9XX0 Chronic gout, unspecified, without tophus (tophi); M25.512 Pain in left shoulder; M79.89 Other specified soft tissue disorders; Z23 Encounter for immunization

== ENCOUNTER → 2025-10-17 15:30 | Outpatient (BNVA) | payer MEDICARE, SELFPAY | PROVIDERS: PCP Student in an Organized Health Care Education/Training Program; Visit Provider Student in an Organized Health Care Education/Training Program | DX: Z00.00 Encounter for general adult medical examination without abnormal findings (principal); Q23.81 Bicuspid aortic valve; I48.21 Permanent atrial fibrillation; I10 Essential (primary) hypertension; E78.2 Mixed hyperlipidemia; M1A.9XX0 Chronic gout, unspecified, without tophus (tophi); C61 Malignant neoplasm of prostate; M25.512 Pain in left shoulder; M79.89 Other specified soft tissue disorders; Z79.899 Other long term (current) drug therapy; Z79.01 Long term (current) use of anticoagulants; Z79.82 Long term (current) use of aspirin; Z23 Encounter for immunization | CPT/HCPCS: 90471; 90662; 99397 ==